=== PATIENT | male | born 1950 | race Caucasian/White ===

== ENCOUNTER 2019-10-30 12:36 | Inpatient (IN) | payer MEDICARE, OTHER, SELFPAY ==
[2019-10-30] VITALS (9 sets, daily range): BP systolic 97–191; BP diastolic 65–92; PULSE 82–108; RESP 18–26; TEMP 36.8–39.1; O2SAT 92–98
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
[2019-10-30] MEDS: Normal Saline 1,000 ML 125 ML IV ×2 (13:54→15:32)
[2019-10-30 13:55] LABS: Lactate 1.5 mmol/L (0.6-1.4)
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
[2019-10-30 13:59] LABS: Abs Immature Grans 0.06 k/cumm (0.0-0.09); Absolute Basophil Count 0.01 k/cumm (0.0-0.2); Absolute Lymphocyte Count 0.62 k/cumm (1.2-3.4); Absolute Monocyte Count 1.53 k/cumm (0.11-0.7); Absolute Neutrophil Count 12.45 k/cumm (1.2-6.7); Basophils % 0.1; HCT 39.2 % (40.0-50.0); HGB 13.8 g/dL (13.5-17.5); Immature Grans % 0.4 %; Lymphocytes % 4.2; Mean Corp. HGB Concentration 35.2 g/dL (32.0-36.0); Mean Corpuscular Volume 85.2 fL (80-95); Mean Platelet Volume 11.2 fL (8.0-11.0); Monocytes % 10.4; Neutrophils % 84.9; Platelet Count 219 x1000/uL (130-400); RBC Distribution Width 12.2 % (11.8-14.1); White Blood Cell Count 14.67 k/cumm (4.4-10.8)
[2019-10-30 14:33] LABS: BE (Venous) 2.4 mmol/L (-3-3); HCO3 (Venous) 26 mmol/L (22-28); O2 Sat (Venous) 87 % (70-80); TCO2 (Venous) 23 mmol/L (22-29); pCO2 (Venous) 34 mm/Hg (34-47); pH (Venous) 7.49 (7.35-7.45); pO2 (Venous) 47 mm/Hg (28-44)
[2019-10-30 14:34] LABS: ALT 28 U/L (16-63); AST 19 U/L (15-37); Albumin 3.5 g/dL (3.4-5.0); Alkaline Phosphatase 104 U/L (46-116); BUN 14 mg/dL (7-18); Bilirubin, Total 1.3 mg/dL (0.2-1.0); CREATININE 1.07 mg/dL (0.70-1.30); Calcium 9.3 mg/dL (8.5-10.1); Chloride 93 mmol/L (98-107); Glucose 426 mg/dL (74-106); Potassium 4.5 mmol/L (3.5-5.1); Sodium 130 mmol/L (136-145); Total Protein 7.8 g/dL (6.4-8.2)
--- NOTE | 2019-10-30 14:45 | ROE_ITS ---
DATE: OCTOBER 30, 2019 Preoperative Diagnosis: Left shoulder abscess secondary to uncontrolled diabetes Postoperative Diagnosis: Same Operation: Incision and drainage Anesthesia: General Estimated Blood Loss: 20 cc. Complications: The patient tolerated the procedure well without complications. Surgeon: Opal Mathew D.O. Indications: Mr. Carlin is a 69 year-old male who presented to the Emergency Department with 10 days of a left shoulder abscess. He is obviously septic and requires incision and drainage. Informed consent is obtained explaining the risks and benefits of the procedure including bleeding, infection, pneumonia or blood clots, it will leave a scar there and there may be loss of motor or sensory function, chronic pain and chronic numbness. He will need frequent dressing changes and it will be a prolonged, delayed healing time and other unforetold complications including anesthesia. Procedure: The patient was marked in preop. He was brought to the Operating Suite and placed in the supine position. Anesthesia was administered per the Department of Anesthesia. The patient was then positioned in a right semi- Marcial's. Using beanbags for support, all bony surfaces were padded. The area was prepped and draped in the usual sterile fashion using Betadine scrub solution. Timeout was performed. A 2 x 3 inch area of necrotic tissue was excised. A finger was swept and all pockets were broken up. Tissue was sent for culture. There was large amount of purulent drainageapprox 50cc. Curet was used to sharply debride all the necrotic tissue. The final wound ended up being 11 x 8 cm. It is down to the muscle. There may be some fascial infection but the muscle appears intact without gross infection. It was then irrigated with three liters of saline. It was packed with wet to dry gauze and pressure dressing was applied. There was no significant bleeding. The patient tolerated the procedure well without complications. He was transferred to Recovery Room in stable condition.
[2019-10-30 14:47] LABS: INR 1.2 (0.9-1.1); Prothrombin Time 11.6 sec (9.3-11.0)
[2019-10-30 14:50] LABS: Diff Comment Diff Reviewed
[2019-10-30 14:51] LABS: Anisocytosis 1+
[2019-10-30 14:59] LABS: Hemoglobin A1C 10.4 % (3.8-5.6)
[2019-10-30] MEDS: PIPERACILLIN/TAZO 4.5 GM in Normal Saline 100 ML IVPB ×2 (15:04→22:17)
[2019-10-30] MEDS: VANCOMYCIN 2,000 MG in Normal Saline 500 ML 250 MG IVPB (15:25)
--- NOTE | 2019-10-30 15:33 | W.PM.OP ---
Date of service: 10/30/19 Time of Service: 15:34 Operative Note Operative Note DATE OF PROCEDURE: 10/30/19 PRE-OP DIAGNOSIS: soft tissue abscess L shoulder POST-OP DIAGNOSIS: same (down to muscle ) PROCEDURE: incision and drainage cultures taken SURGEON: Opal Mathew ANESTHESIA: GETA ESTIMATED BLOOD LOSS: 25 PATHOLOGY: other COMPLICATIONS: None Patient was transported to: PACU Patient's condition: stable Procedure Description: 11x8cm abscess down to muscle. surrounding erythema. tissue sent for culture. irrigated and debrided w/ 3L saline packed w/ gauze
[2019-10-30 15:47] LABS: C-Reactive Protein 16.48 mg/dL (0.0-0.3); Magnesium 1.6 mg/dL (1.8-2.4)
[2019-10-30 17:26] LABS: Glucose 402 mg/dL (74-106)
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
[2019-10-30] MEDS: MAGNESIUM SULFATE 2 GM/50 ML BAG IVPB (18:49)
[2019-10-30 19:47] LABS: Bilirubin Negative (Negative); Blood Small (Negative); Clarity Clear (Clear); Glucose 500 mg/dL (Negative); Ketones 15 mg/dL (Negative); Leukocyte Esterase Negative (Negative); Nitrite Negative (Negative)
[2019-10-30 19:53] LABS: Bacteria Negative HPF (Negative); C & S Indicated? No; Casts Negative LPF (Negative); Crystals Negative HPF (Negative); Epithelial Cells Negative HPF (Negative); Mucus Negative (Negative); Other Cells Negative (Negative); RBC 20-50 HPF (0-2); WBC 0-2 HPF (0-5)
--- NOTE | 2019-10-30 20:40 | PGE_ITS ---
Date of Service Date of service: 10/30/19 Time of Service: 15:40 Assessment and Plan Assessment and plan (1) Abscess of arm, left: Status: Acute Assessment and plan: *Infection related to undiagnosed DM cont abx cultures pd packed wet to dry today re-eval wound in am and hopefully placed a NWPD in am DVT proph pain management DM- per hosp (2) Sepsis: Status: Acute (3) Hypertension: Status: Chronic (4) Bacterial skin infection of upper extremity: Status: Acute (5) New onset type 2 diabetes mellitus: Status: Acute Subjective Subjective Patient reports: no new complaints Interval history since last seen: pt awake and alert in PACU. c/o dry cough. notes his arm is feeling better. In OR had temp over 39. down to 37.7 in pacu- did receive toradol and IV ofirm. no chest pain or SOB. no drainage from incision Exam Const Other: HEENT: all negative No jaundice. No eye redness or pain. No throat pain. L: CTA b/l Abdom: + BS. no distensions. LOWER EXTREMITY: no swelling or calf pain The incision(s) is clean and dry. no bleeding through dressings. Objective Objective Clinical Data: Abnormal lab results 10/30/19 10/30/19 10/30/19 Range/Units 13:40 13:40 13:40 WBC 14.67 H (4.4-10.8) k/cumm Hct 39.2 L (40.0-50.0) % MPV 11.2 H (8.0-11.0) fL Absolute Neutrophils 12.45 H (1.2-6.7) k/cumm Absolute Lymphocytes 0.62 L (1.2-3.4) k/cumm Absolute Monocytes 1.53 H (0.11-0.7) k/cumm PT (9.3-11.0) sec INR (0.9-1.1) VBG pH (7.35-7.45) VBG pO2 (28-44) mm/Hg VBG O2 Saturation (70-80) % Sodium 130 L (136-145) mmol/L Chloride 93 L (98-107) mmol/L Glucose 426 H (74-106) mg/dL Hemoglobin A1c (3.8-5.6) % Lactate 1.5 H (0.6-1.4) mmol/L Magnesium (1.8-2.4) mg/dL Total Bilirubin 1.3 H (0.2-1.0) mg/dL C-Reactive Protein (0.0-0.3) mg/dL Urine Ketones (Negative) mg/dL Urine Blood (Negative) Urine Urobilinogen (Up TO 0.2) EU/dL Urine RBC (0-2) HPF Urine Glucose (Negative) mg/dL 10/30/19 10/30/19 10/30/19 Range/Units 13:40 14:27 14:27 WBC (4.4-10.8) k/cumm Hct (40.0-50.0) % MPV (8.0-11.0) fL Absolute Neutrophils (1.2-6.7) k/cumm Absolute Lymphocytes (1.2-3.4) k/cumm Absolute Monocytes (0.11-0.7) k/cumm PT 11.6 H (9.3-11.0) sec INR 1.2 H (0.9-1.1) VBG pH 7.49 H (7.35-7.45) VBG pO2 47 H (28-44) mm/Hg VBG O2 Saturation 87 H (70-80) % Sodium (136-145) mmol/L Chloride (98-107) mmol/L Glucose (74-106) mg/dL Hemoglobin A1c (3.8-5.6) % Lactate (0.6-1.4) mmol/L Magnesium 1.6 L (1.8-2.4) mg/dL Total Bilirubin (0.2-1.0) mg/dL C-Reactive Protein 16.48 H (0.0-0.3) mg/dL Urine Ketones (Negative) mg/dL Urine Blood (Negative) Urine Urobilinogen (Up TO 0.2) EU/dL Urine RBC (0-2) HPF Urine Glucose (Negative) mg/dL 10/30/19 10/30/19 10/30/19 Range/Units 14:27 17:10 19:04 WBC (4.4-10.8) k/cumm Hct (40.0-50.0) % MPV (8.0-11.0) fL Absolute Neutrophils (1.2-6.7) k/cumm Absolute Lymphocytes (1.2-3.4) k/cumm Absolute Monocytes (0.11-0.7) k/cumm PT (9.3-11.0) sec INR (0.9-1.1) VBG pH (7.35-7.45) VBG pO2 (28-44) mm/Hg VBG O2 Saturation (70-80) % Sodium (136-145) mmol/L Chloride (98-107) mmol/L Glucose 402 H (74-106) mg/dL Hemoglobin A1c 10.4 H (3.8-5.6) % Lactate (0.6-1.4) mmol/L Magnesium (1.8-2.4) mg/dL Total Bilirubin (0.2-1.0) mg/dL C-Reactive Protein (0.0-0.3) mg/dL Urine Ketones 15 H (Negative) mg/dL Urine Blood Small H (Negative) Urine Urobilinogen 2.0 H (Up TO 0.2) EU/dL Urine RBC 20-50 H (0-2) HPF Urine Glucose 500 H (Negative) mg/dL Vital Signs Temperature 37.2 C 10/30/19 16:17 Temperature Source Tympanic 10/30/19 16:17 Pulse 92 H 10/30/19 16:17 Pulse Rhythm Regular 10/30/19 19:19 Respiratory Rate 18 10/30/19 16:17 Respiratory Effort Non-Labored 10/30/19 19:19 Respiratory Depth Normal 10/30/19 19:19 Respiratory Pattern Normal 10/30/19 19:19 Blood Pressure 128/92 H 10/30/19 16:17 Blood Pressure Position Sitting 10/30/19 12:50 Pulse Oximetry 93 L 10/30/19 16:17 Respiratory End-tidal CO2 33 10/30/19 15:45 Oxygen Delivery Method Room Air 10/30/19 16:17 Oxygen Flow Rate 0 10/30/19 16:17 Pain Level 0 10/30/19 19:19 Intake & Output 10/29/19 10/30/19 10/30/19 23:59 11:59 23:59 Intake Total 809.083 / 809.083 Output Total 650 / 650 Balance 159.083 / 159.083 Weight 81.647 kg Intake: IV 734.083 / 734.083 Oral 75 / 75 Output: Urine 450 / 450 Post Void Residual 200 / 200 Other: Urine Color Straw Urine Appearance Clear Urine Odor Normal Comment Pt was informed about urine specimen collection. but the urine was left in the room for half an hour. So the specimen is not collected at this time. Emesis Description None Voiding Methods Toilet Laboratory Results WBC 14.67 k/cumm (4.4-10.8) H 10/30/19 13:40 RBC 4.60 m/cumm (4.50-6.00) 10/30/19 13:40 Hgb 13.8 g/dL (13.5-17.5) 10/30/19 13:40 Hct 39.2 % (40.0-50.0) L 10/30/19 13:40 MCV 85.2 fL (80-95) 10/30/19 13:40 MCH 30.0 pg (27.0-33.0) 10/30/19 13:40 MCHC 35.2 g/dL (32.0-36.0) 10/30/19 13:40 RDW 12.2 % (11.8-14.1) 10/30/19 13:40 Plt Count 219 x1000/uL (130-400) 10/30/19 13:40 MPV 11.2 fL (8.0-11.0) H 10/30/19 13:40 Immature Gran % 0.4 % 10/30/19 13:40 Neutrophils % 84.9 10/30/19 13:40 Lymphocytes % 4.2 10/30/19 13:40 Monocytes % 10.4 10/30/19 13:40 Eosinophils % 0.0 10/30/19 13:40 Basophils % 0.1 10/30/19 13:40 Absolute Neutrophils 12.45 k/cumm (1.2-6.7) H 10/30/19 13:40 Absolute Lymphocytes 0.62 k/cumm (1.2-3.4) L 10/30/19 13:40 Absolute Monocytes 1.53 k/cumm (0.11-0.7) H 10/30/19 13:40 Absolute Eosinophils 0.00 k/cumm (0.0-0.7) 10/30/19 13:40 Absolute Basophils 0.01 k/cumm (0.0-0.2) 10/30/19 13:40 Differential Comment Diff reviewed 10/30/19 13:40 Anisocytosis 1+ 10/30/19 13:40 PT 11.6 sec (9.3-11.0) H 10/30/19 14:27 INR 1.2 (0.9-1.1) H 10/30/19 14:27 VBG pH 7.49 (7.35-7.45) H 10/30/19 14:27 VBG pCO2 34 mm/Hg (34-47) 10/30/19 14:27 VBG pO2 47 mm/Hg (28-44) H 10/30/19 14:27 VBG HCO3 26 mmol/L (22-28) 10/30/19 14:27 VBG Total CO2 23 mmol/L (22-29) 10/30/19 14:27 VBG O2 Saturation 87 % (70-80) H 10/30/19 14:27 VBG Base Excess 2.4 mmol/L (-3-3) 10/30/19 14:27 Sodium 130 mmol/L (136-145) L 10/30/19 13:40 Potassium 4.5 mmol/L (3.5-5.1) 10/30/19 13:40 Chloride 93 mmol/L (98-107) L 10/30/19 13:40 Carbon Dioxide 27.0 mmol/L (21.0-32.0) 10/30/19 13:40 Anion Gap 10.0 mmol/L (3-11) 10/30/19 13:40 BUN 14 mg/dL (7-18) 10/30/19 13:40 Creatinine 1.07 mg/dL (0.70-1.30) 10/30/19 13:40 Estimated GFR/1.73 m2 >= 60.00 (mL/min/1.73m2) 10/30/19 13:40 Glucose 402 mg/dL (74-106) H 10/30/19 17:10 Hemoglobin A1c 10.4 % (3.8-5.6) H 10/30/19 14:27 Lactate Cancelled 10/30/19 13:51 Calcium 9.3 mg/dL (8.5-10.1) 10/30/19 13:40 Magnesium 1.6 mg/dL (1.8-2.4) L 10/30/19 13:40 Total Bilirubin 1.3 mg/dL (0.2-1.0) H 10/30/19 13:40 AST 19 U/L (15-37) 10/30/19 13:40 ALT 28 U/L (16-63) 10/30/19 13:40 Alkaline Phosphatase 104 U/L (46-116) 10/30/19 13:40 C-Reactive Protein 16.48 mg/dL (0.0-0.3) H 10/30/19 13:40 Total Protein 7.8 g/dL (6.4-8.2) 10/30/19 13:40 Albumin 3.5 g/dL (3.4-5.0) 10/30/19 13:40 Urine Color Yellow (Yellow) 10/30/19 19:04 Urine Clarity Clear (Clear) 10/30/19 19:04 Urine pH 6.0 (5-8) 10/30/19 19:04 Ur Specific [place] 1.010 (1.005-1.025) 10/30/19 19:04 Urine Protein Negative mg/dL (Negative) 10/30/19 19:04 Urine Ketones 15 mg/dL (Negative) H 10/30/19 19:04 Urine Blood Small (Negative) H 10/30/19 19:04 Urine Nitrite Negative (Negative) 10/30/19 19:04 Urine Bilirubin Negative (Negative) 10/30/19 19:04 Urine Urobilinogen 2.0 EU/dL (Up TO 0.2) H 10/30/19 19:04 Ur Leukocyte Esterase Negative (Negative) 10/30/19 19:04 Urine RBC 20-50 HPF (0-2) H 10/30/19 19:04 Urine WBC 0-2 HPF (0-5) 10/30/19 19:04 Ur Epithelial Cells Negative HPF (Negative) 10/30/19 19:04 Urine Crystals Negative HPF (Negative) 10/30/19 19:04 Urine Bacteria Negative HPF (Negative) 10/30/19 19:04 Urine Casts Negative LPF (Negative) 10/30/19 19:04 Urine Mucus Negative (Negative) 10/30/19 19:04 Urine Other Negative (Negative) 10/30/19 19:04 Ur Culture Indicated? No 10/30/19 19:04 Urine Glucose 500 mg/dL (Negative) H 10/30/19 19:04 Gram Stain Cancelled 10/30/19 14:51 Anaerobic Culture Cancelled 10/30/19 14:51 Anaerob Organism Srce Cancelled 10/30/19 14:51 Anaer Org ID Rpt Status Cancelled 10/30/19 14:51
[2019-10-30] MEDS: ACETAMINOPHEN 1,000 MG/100 ML BTL 400 MG IVPB (22:16)
[2019-10-30] MEDS: Ketorolac 15 MG/ML VIAL IVP (22:17)
[2019-10-30] MEDS: Normal Saline Flush 10 ML SYR IVP (22:18)
[2019-10-30] MEDS: Insulin Glargine 300 UNITS/3 ML PEN 10 UNITS SC (22:52)
[2019-10-30] MEDS: Insulin Aspart 300 UNITS/3 ML PEN SC (22:53)
[2019-10-31] MEDS: Normal Saline 1,000 ML 125 ML IV ×2 (02:50→12:47)
[2019-10-31 04:30] VITALS: BP 143/80; PULSE 85; RESP 18; TEMP 37.1; O2SAT 95
[2019-10-31] MEDS: VANCOMYCIN 1,000 MG in Normal Saline 250 ML 166.667 MG IV (04:30)
[2019-10-31] MEDS: Normal Saline Flush 10 ML SYR IVP ×3 (06:57→20:10)
[2019-10-31] MEDS: ACETAMINOPHEN 1,000 MG/100 ML BTL 400 MG IVPB ×3 (06:57→22:17)
[2019-10-31] MEDS: Ketorolac 15 MG/ML VIAL IVP ×3 (06:58→22:19)
[2019-10-31] MEDS: PIPERACILLIN/TAZO 4.5 GM in Normal Saline 100 ML IVPB ×3 (06:59→22:21)
[2019-10-31 07:28] LABS: Absolute Lymphocyte Count 1.18 k/cumm (1.2-3.4); Absolute Monocyte Count 1.59 k/cumm (0.11-0.7); Absolute Neutrophil Count 12.99 k/cumm (1.2-6.7); Basophils % 0.1; Eosinophils % 0.1; HCT 35.1 % (40.0-50.0); HGB 12.1 g/dL (13.5-17.5); Immature Grans % 0.6 %; Lymphocytes % 7.4; Mean Corp. HGB Concentration 34.5 g/dL (32.0-36.0); Mean Corpuscular Hemoglobin 30.1 pg (27.0-33.0); Mean Corpuscular Volume 87.3 fL (80-95); Mean Platelet Volume 11.2 fL (8.0-11.0); Neutrophils % 81.8; Platelet Count 204 x1000/uL (130-400); RBC 4.02 m/cumm (4.50-6.00); RBC Distribution Width 12.2 % (11.8-14.1); White Blood Cell Count 15.88 k/cumm (4.4-10.8)
[2019-10-31 07:35] VITALS: BP 124/76; PULSE 81; RESP 22; TEMP 37; O2SAT 92
[2019-10-31 07:47] LABS: Absolute Basophil Count 0.02 k/cumm (0.0-0.2); Absolute Eosinophil Count 0.02 k/cumm (0.0-0.7)
[2019-10-31 08:04] LABS: Anion Gap 8.3 mmol/L (3-11); BUN 15 mg/dL (7-18); C-Reactive Protein 20.81 mg/dL (0.0-0.3); CO2 25.7 mmol/L (21.0-32.0); CREATININE 0.88 mg/dL (0.70-1.30); Calcium 8.2 mg/dL (8.5-10.1); Chloride 101 mmol/L (98-107); Glucose 275 mg/dL (74-106); Potassium 4.8 mmol/L (3.5-5.1); Sodium 135 mmol/L (136-145); TSH (W/Ref FT4) 0.63 uIU/mL (0.36-3.74)
[2019-10-31 08:16] LABS: Procalcitonin 0.5 ng/mL
[2019-10-31 08:17] LABS: Diff Comment Diff Reviewed
[2019-10-31 08:18] LABS: Anisocytosis 1+; Polychromasia Present
[2019-10-31] MEDS: Ketoconazole 2% CREAM 15 GM TUBE TP (09:35)
[2019-10-31] MEDS: Insulin Aspart 300 UNITS/3 ML PEN SC ×6 (09:36→22:20)
[2019-10-31] MEDS: Enoxaparin 40 MG/0.4 ML SYR SC (09:36)
[2019-10-31 11:45] VITALS: BP 130/79; PULSE 78; RESP 22; TEMP 35.9; O2SAT 92
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
[2019-10-31] MEDS: Milk of Magnesia 30 ML CUP PO (12:10)
--- NOTE | 2019-10-31 14:08 | W.PM.PROGNOT ---
Date of Service Date of service: 10/31/19 Time of Service: 14:08 Assessment and Plan Assessment and plan (1) Sepsis: Status: Acute Assessment and plan: Due to abscess of LUE, present on admission. Surgical Cultures with MRSA, GNR. Blood cultures pending. CRP went up - to be expected post-surgically. Continue vanco/zosyn for now. Would not d/c zosyn until speciation on GNR available. Continue to trend CRP/procalcitonin. (2) Abscess of left shoulder: Status: Acute Assessment and plan: As above (3) New onset type 2 diabetes mellitus: Status: Acute Assessment and plan: With hyperglycemia. A1C of 10.4. Hyperglycemia partially due to acute infection. Increase basal insulin; schedule prandial insulin. Await diabetes education consult. (4) Hypertension: Status: Chronic Assessment and plan: New diagnosis. BP's have been quite good today. Will start lisinopril 2.5 mg PO daily. (5) Tinea pedis: Status: Acute Assessment and plan: Continue ketaconazole (6) DVT prophylaxis: Status: Acute Assessment and plan: Defer to primary team (7) Discharge planning issues: Status: Acute Assessment and plan: Full code Subjective Subjective Interval history since last seen: Mr Carlin states he did not have nausea, dizziness, chest pain, or shortness of breath today. His pain is controlled. He is growing MRSA in his operative culture, but there is also evidence of GNR on gram stain - this has not yet speciated. The nursing notes an extra beat on auscultation. Patient endorses having occasional palpitations. He has never had an EKG. Exam Narrative Exam Narrative: General: Very pleasant middle-aged male, laying comfortably in bed, A&Ox3 HEENT: EOMI, MMM Cardiovascular: RRR, occasional extra beat Lungs: crackles at B bases Gastrointestinal: soft, nontender, nondistended Extremities: no e/c/c BLE's, preserved sensation, 2+ pedal pulses B, LUE with a dressed abscess - c/d/i Objective Objective Clinical Data: Abnormal lab results 10/30/19 10/30/19 10/30/19 Range/Units 13:40 13:40 13:40 WBC 14.67 H (4.4-10.8) k/cumm RBC (4.50-6.00) m/cumm Hgb (13.5-17.5) g/dL Hct 39.2 L (40.0-50.0) % MPV 11.2 H (8.0-11.0) fL Absolute Neutrophils 12.45 H (1.2-6.7) k/cumm Absolute Lymphocytes 0.62 L (1.2-3.4) k/cumm Absolute Monocytes 1.53 H (0.11-0.7) k/cumm PT (9.3-11.0) sec INR (0.9-1.1) VBG pH (7.35-7.45) VBG pO2 (28-44) mm/Hg VBG O2 Saturation (70-80) % Sodium 130 L (136-145) mmol/L Chloride 93 L (98-107) mmol/L Glucose 426 H (74-106) mg/dL Hemoglobin A1c (3.8-5.6) % Calcium (8.5-10.1) mg/dL Magnesium 1.6 L (1.8-2.4) mg/dL Total Bilirubin 1.3 H (0.2-1.0) mg/dL C-Reactive Protein 16.48 H (0.0-0.3) mg/dL Urine Ketones (Negative) mg/dL Urine Blood (Negative) Urine Urobilinogen (Up TO 0.2) EU/dL Urine RBC (0-2) HPF Urine Glucose (Negative) mg/dL 10/30/19 10/30/19 10/30/19 Range/Units 14:27 14:27 14:27 WBC (4.4-10.8) k/cumm RBC (4.50-6.00) m/cumm Hgb (13.5-17.5) g/dL Hct (40.0-50.0) % MPV (8.0-11.0) fL Absolute Neutrophils (1.2-6.7) k/cumm Absolute Lymphocytes (1.2-3.4) k/cumm Absolute Monocytes (0.11-0.7) k/cumm PT 11.6 H (9.3-11.0) sec INR 1.2 H (0.9-1.1) VBG pH 7.49 H (7.35-7.45) VBG pO2 47 H (28-44) mm/Hg VBG O2 Saturation 87 H (70-80) % Sodium (136-145) mmol/L Chloride (98-107) mmol/L Glucose (74-106) mg/dL Hemoglobin A1c 10.4 H (3.8-5.6) % Calcium (8.5-10.1) mg/dL Magnesium (1.8-2.4) mg/dL Total Bilirubin (0.2-1.0) mg/dL C-Reactive Protein (0.0-0.3) mg/dL Urine Ketones (Negative) mg/dL Urine Blood (Negative) Urine Urobilinogen (Up TO 0.2) EU/dL Urine RBC (0-2) HPF Urine Glucose (Negative) mg/dL 10/30/19 10/30/19 10/31/19 Range/Units 17:10 19:04 06:52 WBC (4.4-10.8) k/cumm RBC (4.50-6.00) m/cumm Hgb (13.5-17.5) g/dL Hct (40.0-50.0) % MPV (8.0-11.0) fL Absolute Neutrophils (1.2-6.7) k/cumm Absolute Lymphocytes (1.2-3.4) k/cumm Absolute Monocytes (0.11-0.7) k/cumm PT (9.3-11.0) sec INR (0.9-1.1) VBG pH (7.35-7.45) VBG pO2 (28-44) mm/Hg VBG O2 Saturation (70-80) % Sodium 135 L (136-145) mmol/L Chloride (98-107) mmol/L Glucose 402 H 275 H D (74-106) mg/dL Hemoglobin A1c (3.8-5.6) % Calcium 8.2 L (8.5-10.1) mg/dL Magnesium (1.8-2.4) mg/dL Total Bilirubin (0.2-1.0) mg/dL C-Reactive Protein 20.81 H (0.0-0.3) mg/dL Urine Ketones 15 H (Negative) mg/dL Urine Blood Small H (Negative) Urine Urobilinogen 2.0 H (Up TO 0.2) EU/dL Urine RBC 20-50 H (0-2) HPF Urine Glucose 500 H (Negative) mg/dL 10/31/19 Range/Units 06:52 WBC 15.88 H (4.4-10.8) k/cumm RBC 4.02 L (4.50-6.00) m/cumm Hgb 12.1 L (13.5-17.5) g/dL Hct 35.1 L (40.0-50.0) % MPV 11.2 H (8.0-11.0) fL Absolute Neutrophils 12.99 H (1.2-6.7) k/cumm Absolute Lymphocytes 1.18 L (1.2-3.4) k/cumm Absolute Monocytes 1.59 H (0.11-0.7) k/cumm PT (9.3-11.0) sec INR (0.9-1.1) VBG pH (7.35-7.45) VBG pO2 (28-44) mm/Hg VBG O2 Saturation (70-80) % Sodium (136-145) mmol/L Chloride (98-107) mmol/L Glucose (74-106) mg/dL Hemoglobin A1c (3.8-5.6) % Calcium (8.5-10.1) mg/dL Magnesium (1.8-2.4) mg/dL Total Bilirubin (0.2-1.0) mg/dL C-Reactive Protein (0.0-0.3) mg/dL Urine Ketones (Negative) mg/dL Urine Blood (Negative) Urine Urobilinogen (Up TO 0.2) EU/dL Urine RBC (0-2) HPF Urine Glucose (Negative) mg/dL Vital Signs Temperature 35.9 C L 10/31/19 11:45 Temperature Source Temporal Artery Scan 10/31/19 11:45 Pulse 78 10/31/19 11:45 Pulse Rhythm Regular 10/31/19 11:21 Respiratory Rate 22 10/31/19 11:45 Respiratory Effort Non-Labored 10/31/19 11:21 Respiratory Depth Normal 10/31/19 11:21 Respiratory Pattern Normal 10/31/19 11:21 Blood Pressure 130/79 10/31/19 11:45 Blood Pressure Position Sitting 10/30/19 12:50 Pulse Oximetry 92 L 10/31/19 11:45 Respiratory End-tidal CO2 33 10/30/19 15:45 Oxygen Delivery Method Room Air 10/31/19 11:45 Oxygen Flow Rate 0 10/31/19 11:45 Pain Level 0 10/31/19 11:45 Intake & Output 10/30/19 10/31/19 10/31/19 23:59 11:59 23:59 Intake Total 2811.083 / 2811.083 1907.083 / 3185.000 1277.917 / 3185.000 Output Total 1150 / 1150 950 / 950 Balance 1661.083 / 1661.083 957.083 / 2235.000 1277.917 / 2235.000 Weight 81.647 kg Intake: IV 1956.083 / 1956.083 777.083 / 1450.000 672.917 / 1450.000 Oral 855 / 855 1130 / 1735 605 / 1735 Output: Urine 950 / 950 950 / 950 Post Void Residual 200 / 200 Other: Urine Color Straw Dark Melita Urine Appearance Clear Clear Urine Odor Normal Comment Pt was informed about urine specimen collection. but the urine was left in the room for half an hour. So the specimen is not collected at this time. Emesis Description None Voiding Methods Toilet Urinal Laboratory Results WBC 15.88 k/cumm (4.4-10.8) H 10/31/19 06:52 RBC 4.02 m/cumm (4.50-6.00) L 10/31/19 06:52 Hgb 12.1 g/dL (13.5-17.5) L 10/31/19 06:52 Hct 35.1 % (40.0-50.0) L 10/31/19 06:52 MCV 87.3 fL (80-95) 10/31/19 06:52 MCH 30.1 pg (27.0-33.0) 10/31/19 06:52 MCHC 34.5 g/dL (32.0-36.0) 10/31/19 06:52 RDW 12.2 % (11.8-14.1) 10/31/19 06:52 Plt Count 204 x1000/uL (130-400) 10/31/19 06:52 MPV 11.2 fL (8.0-11.0) H 10/31/19 06:52 Immature Gran % 0.6 % 10/31/19 06:52 Neutrophils % 81.8 10/31/19 06:52 Lymphocytes % 7.4 10/31/19 06:52 Monocytes % 10.0 10/31/19 06:52 Eosinophils % 0.1 10/31/19 06:52 Basophils % 0.1 10/31/19 06:52 Absolute Neutrophils 12.99 k/cumm (1.2-6.7) H 10/31/19 06:52 Absolute Lymphocytes 1.18 k/cumm (1.2-3.4) L 10/31/19 06:52 Absolute Monocytes 1.59 k/cumm (0.11-0.7) H 10/31/19 06:52 Absolute Eosinophils 0.02 k/cumm (0.0-0.7) 10/31/19 06:52 Absolute Basophils 0.02 k/cumm (0.0-0.2) 10/31/19 06:52 Differential Comment Diff reviewed 10/31/19 06:52 RBC Morphology See below 10/31/19 06:52 Polychromasia Present 10/31/19 06:52 Anisocytosis 1+ 10/31/19 06:52 PT 11.6 sec (9.3-11.0) H 10/30/19 14:27 INR 1.2 (0.9-1.1) H 10/30/19 14:27 VBG pH 7.49 (7.35-7.45) H 10/30/19 14:27 VBG pCO2 34 mm/Hg (34-47) 10/30/19 14:27 VBG pO2 47 mm/Hg (28-44) H 10/30/19 14:27 VBG HCO3 26 mmol/L (22-28) 10/30/19 14:27 VBG Total CO2 23 mmol/L (22-29) 10/30/19 14:27 VBG O2 Saturation 87 % (70-80) H 10/30/19 14:27 VBG Base Excess 2.4 mmol/L (-3-3) 10/30/19 14:27 Sodium 135 mmol/L (136-145) L 10/31/19 06:52 Potassium 4.8 mmol/L (3.5-5.1) 10/31/19 06:52 Chloride 101 mmol/L (98-107) 10/31/19 06:52 Carbon Dioxide 25.7 mmol/L (21.0-32.0) 10/31/19 06:52 Anion Gap 8.3 mmol/L (3-11) 10/31/19 06:52 BUN 15 mg/dL (7-18) 10/31/19 06:52 Creatinine 0.88 mg/dL (0.70-1.30) 10/31/19 06:52 Estimated GFR/1.73 m2 >= 60.00 (mL/min/1.73m2) 10/31/19 06:52 Glucose 275 mg/dL (74-106) H D 10/31/19 06:52 Hemoglobin A1c 10.4 % (3.8-5.6) H 10/30/19 14:27 Lactate Cancelled 10/30/19 13:51 Calcium 8.2 mg/dL (8.5-10.1) L 10/31/19 06:52 Magnesium 2.0 mg/dL (1.8-2.4) 10/31/19 06:52 Total Bilirubin 1.3 mg/dL (0.2-1.0) H 10/30/19 13:40 AST 19 U/L (15-37) 10/30/19 13:40 ALT 28 U/L (16-63) 10/30/19 13:40 Alkaline Phosphatase 104 U/L (46-116) 10/30/19 13:40 C-Reactive Protein 20.81 mg/dL (0.0-0.3) H 10/31/19 06:52 Total Protein 7.8 g/dL (6.4-8.2) 10/30/19 13:40 Albumin 3.5 g/dL (3.4-5.0) 10/30/19 13:40 Procalcitonin 0.5 ng/mL 10/31/19 06:52 TSH 0.63 uIU/mL (0.36-3.74) 10/31/19 06:52 Urine Color Yellow (Yellow) 10/30/19 19:04 Urine Clarity Clear (Clear) 10/30/19 19:04 Urine pH 6.0 (5-8) 10/30/19 19:04 Ur Specific [place] 1.010 (1.005-1.025) 10/30/19 19:04 Urine Protein Negative mg/dL (Negative) 10/30/19 19:04 Urine Ketones 15 mg/dL (Negative) H 10/30/19 19:04 Urine Blood Small (Negative) H 10/30/19 19:04 Urine Nitrite Negative (Negative) 10/30/19 19:04 Urine Bilirubin Negative (Negative) 10/30/19 19:04 Urine Urobilinogen 2.0 EU/dL (Up TO 0.2) H 10/30/19 19:04 Ur Leukocyte Esterase Negative (Negative) 10/30/19 19:04 Urine RBC 20-50 HPF (0-2) H 10/30/19 19:04 Urine WBC 0-2 HPF (0-5) 10/30/19 19:04 Ur Epithelial Cells Negative HPF (Negative) 10/30/19 19:04 Urine Crystals Negative HPF (Negative) 10/30/19 19:04 Urine Bacteria Negative HPF (Negative) 10/30/19 19:04 Urine Casts Negative LPF (Negative) 10/30/19 19:04 Urine Mucus Negative (Negative) 10/30/19 19:04 Urine Other Negative (Negative) 10/30/19 19:04 Ur Culture Indicated? No 10/30/19 19:04 Urine Glucose 500 mg/dL (Negative) H 10/30/19 19:04 Gram Stain Cancelled 10/30/19 14:51 Anaerobic Culture Cancelled 10/30/19 14:51 Anaerob Organism Srce Cancelled 10/30/19 14:51 Anaer Org ID Rpt Status Cancelled 10/30/19 14:51 EKG pending
--- NOTE | 2019-10-31 15:00 | W.NUTCONSULT ---
Date of service: 10/31/19 Time of Service: 15:00 Nutritional Consult ASSESSMENT: 69 year old male admitted for sepsis, left arm abscess, s/p debridement, newly diagnosed NIDDM (ER BS: 500 mg/dl). PMH: HTN. A1C = 10.4% indicating high blood sugars in last 90 days. Following Clear Liquid diet with out issues, expect diet advancement TA. BMI indicates overweight status. DM consult pending, will need extensive diabetes teaching, blood sugar monitor and be trained in how to check blood sugars. MD reports he will be discharged on metformin. Not considered at nutritional risk at this time. Will follow prn. MONITORING AND EVALUATION: blood sugars, po intake, labs monitored daily Time Spent in Nutritional Counseling and Treatment: 0 time spent face to face
--- NOTE | 2019-10-31 16:15 | PHA.ADMREV ---
Pharmacy Clinical Review - Admission Clinical Review (Last Updated 10/30/19 @ 18:06 by Claire Castrejon MD) Abscess of arm, left (Acute) Discharge planning issues (Acute) DVT prophylaxis (Acute) Sepsis (Acute) Tinea pedis (Acute) New onset type 2 diabetes mellitus (Acute) Bacterial skin infection of upper extremity (Acute) Abscess of left shoulder (Acute) History of surgery on arm (Acute) History of dental surgery (Acute) No Known Allergies Allergy (Unverified 10/30/19 12:53) Height 5 ft 6 in Weight 81.647 kg - Renal Dosing Renal Dosing: BUN 15 mg/dL (7-18) 10/31/19 06:52 Creatinine 0.88 mg/dL (0.70-1.30) 10/31/19 06:52 Medications needing adjustments: Reviewed (Crcl ~70 mL/min current meds okay) - Anticoagulation Anticoagulation: Hgb 12.1 g/dL (13.5-17.5) L 10/31/19 06:52 Hct 35.1 % (40.0-50.0) L 10/31/19 06:52 Plt Count 204 x1000/uL (130-400) 10/31/19 06:52 INR 1.2 (0.9-1.1) H 10/30/19 14:27 Creatinine 0.88 mg/dL (0.70-1.30) 10/31/19 06:52 DVT Prohphylaxis: Reviewed Medications: Enoxaparin Therapeutic Anticoagulation: N/A - Opiate Usage Evaluate Pain Scale/Pains Meds: Reviewed Scheduled Bowel Reg ordered if on Opiates?: No - Relevant Labs Sodium 135 mmol/L (136-145) L 10/31/19 06:52 Potassium 4.8 mmol/L (3.5-5.1) 10/31/19 06:52 Chloride 101 mmol/L (98-107) 10/31/19 06:52 Magnesium 2.0 mg/dL (1.8-2.4) 10/31/19 06:52 C-Reactive Protein 20.81 mg/dL (0.0-0.3) H 10/31/19 06:52 Electrolytes, C-Reactive P, ESR: Reviewed - Antimicrobial Stewardship Antibiotic appropriateness: Reviewed (procalcitonin 0.5 ng/mL) Surgical Abx d/c within 24 hr: N/A Culture review/Resistance: Reviewed (blood cultures negative @24 hours, wound and surgical cultures growing MRSA. waiting for speciation of GNR before discontinuing zosyn (surgical culture gram stain showed few GNR)) - DM Control DM Control: Glucose 275 mg/dL (74-106) H D 10/31/19 06:52 Hemoglobin A1c 10.4 % (3.8-5.6) H 10/30/19 14:27 Finger Stick Blood Glucose 391 Finger Stick Blood Glucose 391 Finger Stick Blood Glucose 276 Insulin Dosing: Reviewed (scheduled glargine and aspart as well as sliding scale aspart) - Heart Failure/OK EF%, PAKO's, B-Blockers, Diuretics: N/A - BP Control BP Control: Blood Pressure 130/79 Blood Pressure 124/76 Blood Pressure 143/80 If elevated: N/A - QTc Review If Elevated: Reviewed (QTc 422) - IV to PO Switch IV Medications: Reviewed - Home Meds Home Med List reviewed: Reviewed - Current meds Current Medication Order Review: Reviewed - Comments Comments/Follow Ups: watch for BM/the addition of BM meds. watch for speciation of GNR/possible discontinuation of zosyn, follow CRP/procalcitonin
[2019-10-31 16:25] VITALS: BP 124/73; PULSE 83; RESP 18; TEMP 36.7; O2SAT 90
[2019-10-31] MEDS: VANCOMYCIN 1,000 MG in Normal Saline 250 ML 166.67 MG IV (16:53)
--- NOTE | 2019-10-31 18:19 | PGE_ITS ---
Date of Service Date of service: 10/31/19 Time of Service: 18:19 Assessment and Plan Assessment and plan (1) Abscess of arm, left: Status: Acute (2) Sepsis: Status: Acute Assessment and plan: resolved (3) Hypertension: Status: Chronic (4) New onset type 2 diabetes mellitus: Status: Acute (5) Bacterial skin infection of upper extremity: Status: Acute (6) Abscess of left shoulder: Status: Acute Assessment and plan: wound vac applied home vac ordered from [facility] today consulted PT for ROM cont zosyn and vanco until we have final cult results. there were gram negs on the orig gram stain from ED. I dont' think there is any extensive muscle involvement or concern for osteo. I dont' think it has traveled along fascial planes. I think this is localized only. The arm is swollen- but no signs of compartment syndrome. supportive care DM management per hosp. d/c prob mon or tues (7) MRSA cellulitis: Status: Acute Assessment and plan: cont Vanco supportive care probiotcs Subjective Subjective Interval history since last seen: Pt is doing better. no headaches. No CP or S OB. no productive cough. no dysuria. no leg pain or swelling. he has been urinating. no N/V. L arm is very swollen. He notes pain in shoulder and w/ ROM. He has not been up walking. Moderate White Blood Cells Moderate Gram Positive Cocci Few Gram Negative Ludwin on swabs did grow out MRSA- vanco and zosyn. will cont on double coverage until we get finals back on culture. Exam Const General: cooperative, healthy appearing, comfortable, no acute distress, well developed and well groomed Nutritional Appearance: average body habitus and well nourished Orientation: alert, awake and oriented x3 [facility] Head: normal to inspection, normocephalic and atraumatic Ears: hearing grossly normal bilaterally and external ears normal General nose exam: external nose normal Face and sinus: normal facial exam and sinuses nontender Mouth: oral mucosae normal, lip normal, tongue normal and moist mucous membranes Teeth and gingiva: dentition normal Eyes General: appearance normal, both eyes and all related structures Conjunctivae: conjunctivae normal Sclera: sclerae normal Pupils: PERRL Neck Neck: normal visual inspection and full ROM Chest Chest: normal inspection of the chest Resp Effort & Inspection: normal respiratory effort, able to speak in complete sentences, no cough, no nasal flaring, not tachypneic and no use of accessory muscles Auscultation: clear to auscultation bilaterally, no rales, no rhonchi and no wheezes Cardio Jugular venous pressure: no JVD Rate: regular rate Rhythm: regular rhythm GI Inspection: normal to inspection, no edema and non-distended Palpation: soft, no masses, nontender and No ascites Auscultation: normal bowel sounds Skin Other: no rashes from Vanco wound [id number]. much less redness today. still signif swelling in upper arm and forearm. edges/flaps are healthy extends down to fascia/muscle. however, i think the muscle is healthy and only midly involved. doubt osteo. 90% clean. some slough. no necrotic tissue. no granulation. I beilve this is confined to soft tissue of post upper arm. I don't think this extends into the actual shoulder joint itself. I dont' think there is any extensive myositis or concern for osteo He has good ulnar and radial pulses in the left hand/wrist. He has good range of motion in hand and fingers. There is significant swelling in the upper arm and forearm, but there is no signs of any compartment syndrome. Neuro General: alert, oriented x3, oriented, gait normal, moves all extremities, no focal motor deficits and CN's II-XI intact bilaterally Cognition: normal cognition Speech: speech normal Gait: normal gait Motor: muscle tone normal throughout Extrem General: normal to inspection, full ROM, no clubbing, cyanosis or edema and other (excluding left ext. see 'skin) Psych Appearance: grossly normal and well kempt Mental Status: mental status grossly normal Speech and Movement: speech and movement normal Affect: normal affect Objective Objective Clinical Data: Abnormal lab results 10/30/19 10/31/19 10/31/19 Range/Units 19:04 06:52 06:52 WBC 15.88 H (4.4-10.8) k/cumm RBC 4.02 L (4.50-6.00) m/cumm Hgb 12.1 L (13.5-17.5) g/dL Hct 35.1 L (40.0-50.0) % MPV 11.2 H (8.0-11.0) fL Absolute Neutrophils 12.99 H (1.2-6.7) k/cumm Absolute Lymphocytes 1.18 L (1.2-3.4) k/cumm Absolute Monocytes 1.59 H (0.11-0.7) k/cumm Sodium 135 L (136-145) mmol/L Glucose 275 H D (74-106) mg/dL Calcium 8.2 L (8.5-10.1) mg/dL C-Reactive Protein 20.81 H (0.0-0.3) mg/dL Urine Ketones 15 H (Negative) mg/dL Urine Blood Small H (Negative) Urine Urobilinogen 2.0 H (Up TO 0.2) EU/dL Urine RBC 20-50 H (0-2) HPF Urine Glucose 500 H (Negative) mg/dL Vital Signs Temperature 36.7 C 10/31/19 16:25 Temperature Source Temporal Artery Scan 10/31/19 16:25 Pulse 83 10/31/19 16:25 Pulse Rhythm Regular 10/31/19 18:09 Respiratory Rate 18 10/31/19 16:25 Respiratory Effort Non-Labored 10/31/19 18:09 Respiratory Depth Normal 10/31/19 18:09 Respiratory Pattern Normal 10/31/19 18:09 Blood Pressure 124/73 10/31/19 16:25 Blood Pressure Position Sitting 10/30/19 12:50 Pulse Oximetry 90 L 10/31/19 16:25 Respiratory End-tidal CO2 33 10/30/19 15:45 Oxygen Delivery Method Room Air 10/31/19 16:25 Oxygen Flow Rate 0 10/31/19 16:25 Pain Level 3 10/31/19 16:25 Intake & Output 10/30/19 10/31/19 10/31/19 23:59 11:59 23:59 Intake Total 2811.083 / 2811.083 2007.083 / 3635.000 1627.917 / 3635.000 Output Total 1150 / 1150 950 / 1513 563 / 1513 Balance 1661.083 / 6498.014 2281.083 / 2122.000 1064.917 / 2122.000 Weight 81.647 kg Intake: IV 1956.083 / 6.083 877.083 / 1550.000 672.917 / 1550.000 Oral 855 / 855 1130 / 2085 955 / 2085 Output: Urine 950 / 950 950 / 1480 530 / 1480 Post Void Residual 200 / 200 33 / 33 Other: Urine Color Straw Dark Melita Light Melita Urine Appearance Clear Clear Clear Urine Odor Normal None Comment Pt was informed about urine specimen collection. but the urine was left in the room for half an hour. So the specimen is not collected at this time. Emesis Description None Voiding Methods Toilet Urinal Urinal Laboratory Results WBC 15.88 k/cumm (4.4-10.8) H 10/31/19 06:52 RBC 4.02 m/cumm (4.50-6.00) L 10/31/19 06:52 Hgb 12.1 g/dL (13.5-17.5) L 10/31/19 06:52 Hct 35.1 % (40.0-50.0) L 10/31/19 06:52 MCV 87.3 fL (80-95) 10/31/19 06:52 MCH 30.1 pg (27.0-33.0) 10/31/19 06:52 MCHC 34.5 g/dL (32.0-36.0) 10/31/19 06:52 RDW 12.2 % (11.8-14.1) 10/31/19 06:52 Plt Count 204 x1000/uL (130-400) 10/31/19 06:52 MPV 11.2 fL (8.0-11.0) H 10/31/19 06:52 Immature Gran % 0.6 % 10/31/19 06:52 Neutrophils % 81.8 10/31/19 06:52 Lymphocytes % 7.4 10/31/19 06:52 Monocytes % 10.0 10/31/19 06:52 Eosinophils % 0.1 10/31/19 06:52 Basophils % 0.1 10/31/19 06:52 Absolute Neutrophils 12.99 k/cumm (1.2-6.7) H 10/31/19 06:52 Absolute Lymphocytes 1.18 k/cumm (1.2-3.4) L 10/31/19 06:52 Absolute Monocytes 1.59 k/cumm (0.11-0.7) H 10/31/19 06:52 Absolute Eosinophils 0.02 k/cumm (0.0-0.7) 10/31/19 06:52 Absolute Basophils 0.02 k/cumm (0.0-0.2) 10/31/19 06:52 Differential Comment Diff reviewed 10/31/19 06:52 RBC Morphology See below 10/31/19 06:52 Polychromasia Present 10/31/19 06:52 Anisocytosis 1+ 10/31/19 06:52 PT 11.6 sec (9.3-11.0) H 10/30/19 14:27 INR 1.2 (0.9-1.1) H 10/30/19 14:27 VBG pH 7.49 (7.35-7.45) H 10/30/19 14:27 VBG pCO2 34 mm/Hg (34-47) 10/30/19 14:27 VBG pO2 47 mm/Hg (28-44) H 10/30/19 14:27 VBG HCO3 26 mmol/L (22-28) 10/30/19 14:27 VBG Total CO2 23 mmol/L (22-29) 10/30/19 14:27 VBG O2 Saturation 87 % (70-80) H 10/30/19 14:27 VBG Base Excess 2.4 mmol/L (-3-3) 10/30/19 14:27 Sodium 135 mmol/L (136-145) L 10/31/19 06:52 Potassium 4.8 mmol/L (3.5-5.1) 10/31/19 06:52 Chloride 101 mmol/L (98-107) 10/31/19 06:52 Carbon Dioxide 25.7 mmol/L (21.0-32.0) 10/31/19 06:52 Anion Gap 8.3 mmol/L (3-11) 10/31/19 06:52 BUN 15 mg/dL (7-18) 10/31/19 06:52 Creatinine 0.88 mg/dL (0.70-1.30) 10/31/19 06:52 Estimated GFR/1.73 m2 >= 60.00 (mL/min/1.73m2) 10/31/19 06:52 Glucose 275 mg/dL (74-106) H D 10/31/19 06:52 Hemoglobin A1c 10.4 % (3.8-5.6) H 10/30/19 14:27 Lactate Cancelled 10/30/19 13:51 Calcium 8.2 mg/dL (8.5-10.1) L 10/31/19 06:52 Magnesium 2.0 mg/dL (1.8-2.4) 10/31/19 06:52 Total Bilirubin 1.3 mg/dL (0.2-1.0) H 10/30/19 13:40 AST 19 U/L (15-37) 10/30/19 13:40 ALT 28 U/L (16-63) 10/30/19 13:40 Alkaline Phosphatase 104 U/L (46-116) 10/30/19 13:40 C-Reactive Protein 20.81 mg/dL (0.0-0.3) H 10/31/19 06:52 Total Protein 7.8 g/dL (6.4-8.2) 10/30/19 13:40 Albumin 3.5 g/dL (3.4-5.0) 10/30/19 13:40 Procalcitonin 0.5 ng/mL 10/31/19 06:52 TSH 0.63 uIU/mL (0.36-3.74) 10/31/19 06:52 Urine Color Yellow (Yellow) 10/30/19 19:04 Urine Clarity Clear (Clear) 10/30/19 19:04 Urine pH 6.0 (5-8) 10/30/19 19:04 Ur Specific [place] 1.010 (1.005-1.025) 10/30/19 19:04 Urine Protein Negative mg/dL (Negative) 10/30/19 19:04 Urine Ketones 15 mg/dL (Negative) H 10/30/19 19:04 Urine Blood Small (Negative) H 10/30/19 19:04 Urine Nitrite Negative (Negative) 10/30/19 19:04 Urine Bilirubin Negative (Negative) 10/30/19 19:04 Urine Urobilinogen 2.0 EU/dL (Up TO 0.2) H 10/30/19 19:04 Ur Leukocyte Esterase Negative (Negative) 10/30/19 19:04 Urine RBC 20-50 HPF (0-2) H 10/30/19 19:04 Urine WBC 0-2 HPF (0-5) 10/30/19 19:04 Ur Epithelial Cells Negative HPF (Negative) 10/30/19 19:04 Urine Crystals Negative HPF (Negative) 10/30/19 19:04 Urine Bacteria Negative HPF (Negative) 10/30/19 19:04 Urine Casts Negative LPF (Negative) 10/30/19 19:04 Urine Mucus Negative (Negative) 10/30/19 19:04 Urine Other Negative (Negative) 10/30/19 19:04 Ur Culture Indicated? No 10/30/19 19:04 Urine Glucose 500 mg/dL (Negative) H 10/30/19 19:04 Gram Stain Cancelled 10/30/19 14:51 Anaerobic Culture Cancelled 10/30/19 14:51 Anaerob Organism Srce Cancelled 10/30/19 14:51 Anaer Org ID Rpt Status Cancelled 10/30/19 14:51
[2019-10-31 19:41] VITALS: BP 132/73; PULSE 74; RESP 18; TEMP 36.8; O2SAT 90
[2019-10-31] MEDS: Insulin Glargine 300 UNITS/3 ML PEN 15 UNITS SC (22:20)
[2019-10-31 23:20] VITALS: BP 143/74; PULSE 78; RESP 18; TEMP 37.1; O2SAT 91
[2019-11-01 03:50] VITALS: BP 144/83; PULSE 73; RESP 17; TEMP 36.7; O2SAT 96
[2019-11-01] MEDS: Normal Saline Flush 10 ML SYR IVP ×5 (04:17→15:26)
[2019-11-01] MEDS: VANCOMYCIN 1,000 MG in Normal Saline 250 ML 166.667 MG IV ×2 (04:17→15:26)
[2019-11-01] MEDS: Ketorolac 15 MG/ML VIAL IVP ×3 (05:58→22:09)
[2019-11-01] MEDS: ACETAMINOPHEN 1,000 MG/100 ML BTL 400 MG IVPB ×3 (06:00→22:08)
[2019-11-01] MEDS: PIPERACILLIN/TAZO 4.5 GM in Normal Saline 100 ML IVPB ×3 (06:00→22:42)
[2019-11-01 07:11] LABS: Absolute Eosinophil Count 0.11 k/cumm (0.0-0.7); Absolute Lymphocyte Count 1.67 k/cumm (1.2-3.4); Absolute Monocyte Count 1.14 k/cumm (0.11-0.7); Basophils % 0.1; Eosinophils % 0.7; HCT 36.6 % (40.0-50.0); HGB 12.2 g/dL (13.5-17.5); Immature Grans % 0.6 %; Lymphocytes % 10.3; Mean Corp. HGB Concentration 33.3 g/dL (32.0-36.0); Mean Corpuscular Volume 87.1 fL (80-95); Neutrophils % 81.3; Platelet Count 232 x1000/uL (130-400); RBC Distribution Width 12.4 % (11.8-14.1); White Blood Cell Count 16.26 k/cumm (4.4-10.8)
[2019-11-01 07:32] LABS: Absolute Basophil Count 0.02 k/cumm (0.0-0.2); Absolute Neutrophil Count 13.22 k/cumm (1.2-6.7)
[2019-11-01 07:33] LABS: Anion Gap 6.4 mmol/L (3-11); BUN 13 mg/dL (7-18); C-Reactive Protein 20.95 mg/dL (0.0-0.3); CO2 27.6 mmol/L (21.0-32.0); Calcium 7.7 mg/dL (8.5-10.1); Chloride 104 mmol/L (98-107); Glucose 137 mg/dL (74-106); Magnesium 1.9 mg/dL (1.8-2.4); Sodium 138 mmol/L (136-145)
[2019-11-01 07:50] VITALS: BP 152/80; PULSE 75; RESP 18; TEMP 36.8; O2SAT 93
[2019-11-01] MEDS: Insulin Aspart 300 UNITS/3 ML PEN SC ×4 (09:20→17:18)
[2019-11-01] MEDS: Enoxaparin 40 MG/0.4 ML SYR SC (09:21)
[2019-11-01] MEDS: Ketoconazole 2% CREAM 15 GM TUBE TP (09:22)
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
[2019-11-01 11:45] VITALS: BP 156/86; PULSE 70; RESP 16; TEMP 37.1; O2SAT 93
--- NOTE | 2019-11-01 11:46 | PGE_ITS ---
Date of Service Date of service: 11/01/19 Time of Service: 11:46 Assessment and Plan Assessment and plan (1) New onset type 2 diabetes mellitus: Status: Acute Assessment and plan: Adjusting to insulin injections and he thinks he could administer these himself. Recent change in the dosing yesterday and I like to see how his blood sugars respond to today before making further adjustments. I think it is best to plan on insulin for the near term and a discussion can take place as an outpatient whether or not to transition him to an oral agent instead. He thinks he can learn how to administer insulin himself. (2) Hypertension: Status: Chronic Assessment and plan: Blood pressures up and down a bit. I like to get more data points before deciding whether or not to start on medication. If medicine started, lisinopril will be chosen. (3) Abscess of left shoulder: Status: Acute Assessment and plan: Pain management adequate. VAC system functioning. No identification of gram-negative jaylin seen on Gram stain of the original wound culture and if there is no growth over the next 24 hours discontinue Pipracil/ tazobactam. Continue vancomycin. (4) MRSA cellulitis: Status: Acute Assessment and plan: As above, continue vancomycin. Duration of treatment is a little fluid, depending upon clinical response. Subjective Subjective Interval history since last seen: Feeling better, only complaint is that he still on clear liquids and Jell-O. Pain in the shoulder quite tolerable. No nausea or vomiting. Blood sugars have been slowly trending down. He thinks he can give himself insulin shots after discharge. White blood cell count and CRP unchanged from yesterday. Exam Narrative Exam Narrative: Looks well no distress. Wound vacuum system in place. No fever, blood pressures a bit labile low of 124 systolic, high of 152 this morni ng. No JVD. Clear lungs. No heart murmur. Dressing system with vacuum tubing from the posterior left shoulder intact with mild erythema at the exit site as well as on the inner aspect of his left upper arm. Some induration present but no tenderness. He is got an excellent pulse at the wrist and normal light touch sensation. He does not have pain with abduction and forward flexion of his corry ulder. Soft abdomen with active bowel sounds. He has sequential compression devices on both lower extremities, no pitting edema at the feet. Objective Objective Clinical Data: Abnormal lab results EKG from yesterday sinus rhythm with frequent PVCs. Anaerobic culture no growth thus far. 11/01/19 11/01/19 Range/Units 06:47 06:47 WBC 16.26 H (4.4-10.8) k/cumm RBC 4.20 L (4.50-6.00) m/cumm Hgb 12.2 L (13.5-17.5) g/dL Hct 36.6 L (40.0-50.0) % Absolute Neutrophils 13.22 H (1.2-6.7) k/cumm Absolute Monocytes 1.14 H (0.11-0.7) k/cumm Glucose 137 H D (74-106) mg/dL Calcium 7.7 L (8.5-10.1) mg/dL C-Reactive Protein 20.95 H (0.0-0.3) mg/dL Vital Signs Temperature 36.8 C 11/01/19 07:50 Temperature Source Skin 11/01/19 07:50 Pulse 75 11/01/19 07:50 Pulse Rhythm Regular 11/01/19 09:15 Respiratory Rate 18 11/01/19 07:50 Respiratory Effort Non-Labored 11/01/19 09:15 Respiratory Depth Normal 11/01/19 09:15 Respiratory Pattern Normal 11/01/19 09:15 Blood Pressure 152/80 H 11/01/19 07:50 Blood Pressure Position Sitting 10/30/19 12:50 Pulse Oximetry 93 L 11/01/19 07:50 Respiratory End-tidal CO2 33 10/30/19 15:45 Oxygen Delivery Method Room Air 11/01/19 07:50 Oxygen Flow Rate 0 11/01/19 07:50 Pain Level 3 11/01/19 07:50 Comment 11/01/19 07:50 Intake & Output 10/31/19 10/31/19 11/01/19 11:59 23:59 11:59 Intake Total 2007.083 / 5062.083 3055.000 / 5062.083 350 / 350 Output Total 950 / 1763 813 / 1763 125 / 125 Balance 1057.083 / 3299.083 2242.000 / 3299.083 225 / 225 Intake: IV 877.083 / 2977.083 2100.000 / 2977.083 350 / 350 Oral 1130 / 2085 955 / 2085 Output: Urine 950 / 1730 780 / 1730 125 / 125 Post Void Residual Other: Urine Color Dark Melita Light Melita Light Melita Urine Appearance Clear Cloudy Clear Urine Odor Normal Normal Voiding Methods Urinal Urinal Urinal Laboratory Results WBC 16.26 k/cumm (4.4-10.8) H 11/01/19 06:47 RBC 4.20 m/cumm (4.50-6.00) L 11/01/19 06:47 Hgb 12.2 g/dL (13.5-17.5) L 11/01/19 06:47 Hct 36.6 % (40.0-50.0) L 11/01/19 06:47 MCV 87.1 fL (80-95) 11/01/19 06:47 MCH 29.0 pg (27.0-33.0) 11/01/19 06:47 MCHC 33.3 g/dL (32.0-36.0) 11/01/19 06:47 RDW 12.4 % (11.8-14.1) 11/01/19 06:47 Plt Count 232 x1000/uL (130-400) 11/01/19 06:47 MPV 11.0 fL (8.0-11.0) 11/01/19 06:47 Immature Gran % 0.6 % 11/01/19 06:47 Neutrophils % 81.3 11/01/19 06:47 Lymphocytes % 10.3 11/01/19 06:47 Monocytes % 7.0 11/01/19 06:47 Eosinophils % 0.7 11/01/19 06:47 Basophils % 0.1 11/01/19 06:47 Absolute Neutrophils 13.22 k/cumm (1.2-6.7) H 11/01/19 06:47 Absolute Lymphocytes 1.67 k/cumm (1.2-3.4) 11/01/19 06:47 Absolute Monocytes 1.14 k/cumm (0.11-0.7) H 11/01/19 06:47 Absolute Eosinophils 0.11 k/cumm (0.0-0.7) 11/01/19 06:47 Absolute Basophils 0.02 k/cumm (0.0-0.2) 11/01/19 06:47 Differential Comment Diff reviewed 10/31/19 06:52 RBC Morphology See below 10/31/19 06:52 Polychromasia Present 10/31/19 06:52 Anisocytosis 1+ 10/31/19 06:52 PT 11.6 sec (9.3-11.0) H 10/30/19 14:27 INR 1.2 (0.9-1.1) H 10/30/19 14:27 VBG pH 7.49 (7.35-7.45) H 10/30/19 14:27 VBG pCO2 34 mm/Hg (34-47) 10/30/19 14:27 VBG pO2 47 mm/Hg (28-44) H 10/30/19 14:27 VBG HCO3 26 mmol/L (22-28) 10/30/19 14:27 VBG Total CO2 23 mmol/L (22-29) 10/30/19 14:27 VBG O2 Saturation 87 % (70-80) H 10/30/19 14:27 VBG Base Excess 2.4 mmol/L (-3-3) 10/30/19 14:27 Sodium 138 mmol/L (136-145) 11/01/19 06:47 Potassium 4.0 mmol/L (3.5-5.1) 11/01/19 06:47 Chloride 104 mmol/L (98-107) 11/01/19 06:47 Carbon Dioxide 27.6 mmol/L (21.0-32.0) 11/01/19 06:47 Anion Gap 6.4 mmol/L (3-11) 11/01/19 06:47 BUN 13 mg/dL (7-18) 11/01/19 06:47 Creatinine 0.90 mg/dL (0.70-1.30) 11/01/19 06:47 Estimated GFR/1.73 m2 >= 60.00 (mL/min/1.73m2) 11/01/19 06:47 Glucose 137 mg/dL (74-106) H D 11/01/19 06:47 Hemoglobin A1c 10.4 % (3.8-5.6) H 10/30/19 14:27 Lactate Cancelled 10/30/19 13:51 Calcium 7.7 mg/dL (8.5-10.1) L 11/01/19 06:47 Magnesium 1.9 mg/dL (1.8-2.4) 11/01/19 06:47 Total Bilirubin 1.3 mg/dL (0.2-1.0) H 10/30/19 13:40 AST 19 U/L (15-37) 10/30/19 13:40 ALT 28 U/L (16-63) 10/30/19 13:40 Alkaline Phosphatase 104 U/L (46-116) 10/30/19 13:40 C-Reactive Protein 20.95 mg/dL (0.0-0.3) H 11/01/19 06:47 Total Protein 7.8 g/dL (6.4-8.2) 10/30/19 13:40 Albumin 3.5 g/dL (3.4-5.0) 10/30/19 13:40 Procalcitonin 0.5 ng/mL 10/31/19 06:52 TSH 0.63 uIU/mL (0.36-3.74) 10/31/19 06:52 Urine Color Yellow (Yellow) 10/30/19 19:04 Urine Clarity Clear (Clear) 10/30/19 19:04 Urine pH 6.0 (5-8) 10/30/19 19:04 Ur Specific [place] 1.010 (1.005-1.025) 10/30/19 19:04 Urine Protein Negative mg/dL (Negative) 10/30/19 19:04 Urine Ketones 15 mg/dL (Negative) H 10/30/19 19:04 Urine Blood Small (Negative) H 10/30/19 19:04 Urine Nitrite Negative (Negative) 10/30/19 19:04 Urine Bilirubin Negative (Negative) 10/30/19 19:04 Urine Urobilinogen 2.0 EU/dL (Up TO 0.2) H 10/30/19 19:04 Ur Leukocyte Esterase Negative (Negative) 10/30/19 19:04 Urine RBC 20-50 HPF (0-2) H 10/30/19 19:04 Urine WBC 0-2 HPF (0-5) 10/30/19 19:04 Ur Epithelial Cells Negative HPF (Negative) 10/30/19 19:04 Urine Crystals Negative HPF (Negative) 10/30/19 19:04 Urine Bacteria Negative HPF (Negative) 10/30/19 19:04 Urine Casts Negative LPF (Negative) 10/30/19 19:04 Urine Mucus Negative (Negative) 10/30/19 19:04 Urine Other Negative (Negative) 10/30/19 19:04 Ur Culture Indicated? No 10/30/19 19:04 Urine Glucose 500 mg/dL (Negative) H 10/30/19 19:04 Gram Stain Cancelled 10/30/19 14:51 Anaerobic Culture Cancelled 10/30/19 14:51 Anaerob Organism Srce Cancelled 10/30/19 14:51 Anaer Org ID Rpt Status Cancelled 10/30/19 14:51
--- NOTE | 2019-11-01 11:59 | PGE_ITS ---
Date of Service Date of service: 11/01/19 Time of Service: 11:59 Assessment and Plan Assessment and plan (1) Abscess of arm, left: Status: Acute Assessment and plan: He is improving They have questions for the clinical applications specialist Anticipate discharge early next week with a wound VAC Subjective Subjective Interval history since last seen: Pain is controlled Arm mobility slightly improved, is working with PT Exam Narrative Exam Narrative: No distress Left shoulder wound VAC in good position. Minimal surrounding skin erythema Left arm is still swollen but improved per the patient. Objective Objective Clinical Data: Abnormal lab results 11/01/19 11/01/19 Range/Units 06:47 06:47 WBC 16.26 H (4.4-10.8) k/cumm RBC 4.20 L (4.50-6.00) m/cumm Hgb 12.2 L (13.5-17.5) g/dL Hct 36.6 L (40.0-50.0) % Absolute Neutrophils 13.22 H (1.2-6.7) k/cumm Absolute Monocytes 1.14 H (0.11-0.7) k/cumm Glucose 137 H D (74-106) mg/dL Calcium 7.7 L (8.5-10.1) mg/dL C-Reactive Protein 20.95 H (0.0-0.3) mg/dL Vital Signs Temperature 98.2 F 11/01/19 07:50 Temperature Source Skin 11/01/19 07:50 Pulse 75 11/01/19 07:50 Pulse Rhythm Regular 11/01/19 09:15 Respiratory Rate 18 11/01/19 07:50 Respiratory Effort Non-Labored 11/01/19 09:15 Respiratory Depth Normal 11/01/19 09:15 Respiratory Pattern Normal 11/01/19 09:15 Blood Pressure 152/80 H 11/01/19 07:50 Blood Pressure Position Sitting 10/30/19 12:50 Pulse Oximetry 93 L 11/01/19 07:50 Respiratory End-tidal CO2 33 10/30/19 15:45 Oxygen Delivery Method Room Air 11/01/19 07:50 Oxygen Flow Rate 0 11/01/19 07:50 Pain Level 3 11/01/19 07:50 Comment 11/01/19 07:50 Intake & Output 10/31/19 10/31/19 11/01/19 11:59 23:59 11:59 Intake Total 2007.083 / 5062.083 3055.000 / 5062.083 350 / 350 Output Total 950 / 1763 813 / 1763 125 / 125 Balance 1057.083 / 3299.083 2242.000 / 3299.083 225 / 225 Intake: IV 877.083 / 2977.083 2100.000 / 2977.083 350 / 350 Oral 1130 / 2085 955 / 2085 Output: Urine 950 / 1730 780 / 1730 125 / 125 Post Void Residual Other: Urine Color Dark Melita Light Melita Light Melita Urine Appearance Clear Cloudy Clear Urine Odor Normal Normal Voiding Methods Urinal Urinal Urinal Laboratory Results WBC 16.26 k/cumm (4.4-10.8) H 11/01/19 06:47 RBC 4.20 m/cumm (4.50-6.00) L 11/01/19 06:47 Hgb 12.2 g/dL (13.5-17.5) L 11/01/19 06:47 Hct 36.6 % (40.0-50.0) L 11/01/19 06:47 MCV 87.1 fL (80-95) 11/01/19 06:47 MCH 29.0 pg (27.0-33.0) 11/01/19 06:47 MCHC 33.3 g/dL (32.0-36.0) 11/01/19 06:47 RDW 12.4 % (11.8-14.1) 11/01/19 06:47 Plt Count 232 x1000/uL (130-400) 11/01/19 06:47 MPV 11.0 fL (8.0-11.0) 11/01/19 06:47 Immature Gran % 0.6 % 11/01/19 06:47 Neutrophils % 81.3 11/01/19 06:47 Lymphocytes % 10.3 11/01/19 06:47 Monocytes % 7.0 11/01/19 06:47 Eosinophils % 0.7 11/01/19 06:47 Basophils % 0.1 11/01/19 06:47 Absolute Neutrophils 13.22 k/cumm (1.2-6.7) H 11/01/19 06:47 Absolute Lymphocytes 1.67 k/cumm (1.2-3.4) 11/01/19 06:47 Absolute Monocytes 1.14 k/cumm (0.11-0.7) H 11/01/19 06:47 Absolute Eosinophils 0.11 k/cumm (0.0-0.7) 11/01/19 06:47 Absolute Basophils 0.02 k/cumm (0.0-0.2) 11/01/19 06:47 Differential Comment Diff reviewed 10/31/19 06:52 RBC Morphology See below 10/31/19 06:52 Polychromasia Present 10/31/19 06:52 Anisocytosis 1+ 10/31/19 06:52 PT 11.6 sec (9.3-11.0) H 10/30/19 14:27 INR 1.2 (0.9-1.1) H 10/30/19 14:27 VBG pH 7.49 (7.35-7.45) H 10/30/19 14:27 VBG pCO2 34 mm/Hg (34-47) 10/30/19 14:27 VBG pO2 47 mm/Hg (28-44) H 10/30/19 14:27 VBG HCO3 26 mmol/L (22-28) 10/30/19 14:27 VBG Total CO2 23 mmol/L (22-29) 10/30/19 14:27 VBG O2 Saturation 87 % (70-80) H 10/30/19 14:27 VBG Base Excess 2.4 mmol/L (-3-3) 10/30/19 14:27 Sodium 138 mmol/L (136-145) 11/01/19 06:47 Potassium 4.0 mmol/L (3.5-5.1) 11/01/19 06:47 Chloride 104 mmol/L (98-107) 11/01/19 06:47 Carbon Dioxide 27.6 mmol/L (21.0-32.0) 11/01/19 06:47 Anion Gap 6.4 mmol/L (3-11) 11/01/19 06:47 BUN 13 mg/dL (7-18) 11/01/19 06:47 Creatinine 0.90 mg/dL (0.70-1.30) 11/01/19 06:47 Estimated GFR/1.73 m2 >= 60.00 (mL/min/1.73m2) 11/01/19 06:47 Glucose 137 mg/dL (74-106) H D 11/01/19 06:47 Hemoglobin A1c 10.4 % (3.8-5.6) H 10/30/19 14:27 Lactate Cancelled 10/30/19 13:51 Calcium 7.7 mg/dL (8.5-10.1) L 11/01/19 06:47 Magnesium 1.9 mg/dL (1.8-2.4) 11/01/19 06:47 Total Bilirubin 1.3 mg/dL (0.2-1.0) H 10/30/19 13:40 AST 19 U/L (15-37) 10/30/19 13:40 ALT 28 U/L (16-63) 10/30/19 13:40 Alkaline Phosphatase 104 U/L (46-116) 10/30/19 13:40 C-Reactive Protein 20.95 mg/dL (0.0-0.3) H 11/01/19 06:47 Total Protein 7.8 g/dL (6.4-8.2) 10/30/19 13:40 Albumin 3.5 g/dL (3.4-5.0) 10/30/19 13:40 Procalcitonin 0.5 ng/mL 10/31/19 06:52 TSH 0.63 uIU/mL (0.36-3.74) 10/31/19 06:52 Urine Color Yellow (Yellow) 10/30/19 19:04 Urine Clarity Clear (Clear) 10/30/19 19:04 Urine pH 6.0 (5-8) 10/30/19 19:04 Ur Specific [place] 1.010 (1.005-1.025) 10/30/19 19:04 Urine Protein Negative mg/dL (Negative) 10/30/19 19:04 Urine Ketones 15 mg/dL (Negative) H 10/30/19 19:04 Urine Blood Small (Negative) H 10/30/19 19:04 Urine Nitrite Negative (Negative) 10/30/19 19:04 Urine Bilirubin Negative (Negative) 10/30/19 19:04 Urine Urobilinogen 2.0 EU/dL (Up TO 0.2) H 10/30/19 19:04 Ur Leukocyte Esterase Negative (Negative) 10/30/19 19:04 Urine RBC 20-50 HPF (0-2) H 10/30/19 19:04 Urine WBC 0-2 HPF (0-5) 10/30/19 19:04 Ur Epithelial Cells Negative HPF (Negative) 10/30/19 19:04 Urine Crystals Negative HPF (Negative) 10/30/19 19:04 Urine Bacteria Negative HPF (Negative) 10/30/19 19:04 Urine Casts Negative LPF (Negative) 10/30/19 19:04 Urine Mucus Negative (Negative) 10/30/19 19:04 Urine Other Negative (Negative) 10/30/19 19:04 Ur Culture Indicated? No 10/30/19 19:04 Urine Glucose 500 mg/dL (Negative) H 10/30/19 19:04 Gram Stain Cancelled 10/30/19 14:51 Anaerobic Culture Cancelled 10/30/19 14:51 Anaerob Organism Srce Cancelled 10/30/19 14:51 Anaer Org ID Rpt Status Cancelled 10/30/19 14:51
--- NOTE | 2019-11-01 12:12 | CMPROGNOTE_ITS ---
Care Management Progress Note S/O: Say continues to be closely monitored and is receiving education on diabetes management; reportes he feels confident in managing his own insulin injections post discharge. His blood pressures continue to be monitored, wound vac placed, and he remains on IV ABX (Pipracil/Tazobactam/Vancomycin) at this time. CM continues to follow. A: 69 year old male admitted to [facility] 10/30/19 for Left arm abscess, new onset diabetes P: Sya will return home when medically cleared with new orders for VNA RN to manage dressing changes and provide diabetic education-undetermined if he will require wound vac upon discharge. He will follow up with his PCP, and plan of care as prescribed. CM will continue to follow.
[2019-11-01 15:45] VITALS: BP 142/81; PULSE 66; RESP 14; TEMP 37.2; O2SAT 94
[2019-11-01 19:34] VITALS: BP 157/88; PULSE 72; RESP 20; TEMP 36; O2SAT 93
[2019-11-01] MEDS: Insulin Glargine 300 UNITS/3 ML PEN 15 UNITS SC (22:09)
[2019-11-01 23:14] VITALS: BP 154/86; PULSE 68; RESP 16; TEMP 37; O2SAT 94
[2019-11-02 04:07] LABS: HCT 35.4 % (40.0-50.0); HGB 12.2 g/dL (13.5-17.5); Mean Corp. HGB Concentration 34.5 g/dL (32.0-36.0); Mean Corpuscular Hemoglobin 29.8 pg (27.0-33.0); Mean Corpuscular Volume 86.6 fL (80-95); Mean Platelet Volume 10.8 fL (8.0-11.0); Platelet Count 252 x1000/uL (130-400); RBC 4.09 m/cumm (4.50-6.00); RBC Distribution Width 12.1 % (11.8-14.1); White Blood Cell Count 12.52 k/cumm (4.4-10.8)
[2019-11-02 04:30] VITALS: BP 168/107; PULSE 80; RESP 18; TEMP 37; O2SAT 94
[2019-11-02 05:11] LABS: Vancomycin, Trough 8.4 ug/mL (10.0-20.0)
[2019-11-02] MEDS: VANCOMYCIN 1,000 MG in Normal Saline 250 ML 1667.667 MG IV (05:25)
[2019-11-02] MEDS: Normal Saline Flush 10 ML SYR IVP ×3 (06:22→22:22)
[2019-11-02] MEDS: ACETAMINOPHEN 1,000 MG/100 ML BTL 400 MG IVPB ×3 (06:23→22:19)
[2019-11-02] MEDS: PIPERACILLIN/TAZO 4.5 GM in Normal Saline 100 ML IVPB (06:23)
[2019-11-02] MEDS: Ketorolac 15 MG/ML VIAL IVP ×3 (06:23→22:19)
[2019-11-02 07:29] VITALS: BP 153/74; PULSE 81; RESP 19; TEMP 36.7; O2SAT 97
[2019-11-02] MEDS: Enoxaparin 40 MG/0.4 ML SYR SC (10:00)
[2019-11-02] MEDS: Insulin Aspart 300 UNITS/3 ML PEN SC ×5 (10:00→17:21)
[2019-11-02] MEDS: Ketoconazole 2% CREAM 15 GM TUBE TP (10:01)
[2019-11-02] MEDS: Lisinopril 5 MG TAB PO (10:36)
--- NOTE | 2019-11-02 10:48 | W.PM.PROGNOT ---
Date of Service Date of service: 11/02/19 Time of Service: 10:48 Assessment and Plan Assessment and plan (1) New onset type 2 diabetes mellitus: Status: Acute Assessment and plan: Blood sugars are coming down and I am decreasing his long-acting insulin to avoid hypoglycemia. Continue current meal associated aspart. Monitor blood sugar response at this dose may also need to be adjusted downward. (2) Hypertension: Status: Chronic Assessment and plan: There have been sufficient number of elevated blood pressure readings that I am starting lisinopril today. Reviewed potential side effects. Dose adjustment may need to be made on an outpatient basis. (3) Abscess of left shoulder: Status: Acute Assessment and plan: Overall clinical parameters point towards improvement. The gram-negative jaylin noted on wound culture Gram stain, prior to antibiotics and prior to his surgical drainage, has not grown out of any culture. I think that the Zosyn can be discontinued but defer to the surgical team. Continue vancomycin at least through today, and, with continued improvement, could switch in 24 to 48 hours to clindamycin 450 mg 3 times daily to complete a 10 to 14-day treatment course as an outpatient. (4) MRSA cellulitis: Status: Acute Assessment and plan: As above, continue vancomycin with dose adjustment based on drug level. Subjective Subjective Interval history since last seen: No significant discomfort in the left arm. A little bit of loose stools. No cough or wheeze. No chest pain or palpitations. No stomach upset. No dysuria. No paresthesias. Blood sugars have been coming down. No new culture information?the gram-negative jaylin identified on Gram stain has not grown from any culture. Blood pressures have been trending high. Exam Narrative Exam Narrative: Sitting in a chair he is in no distress. He has been afebrile. Blood pressures consistently above 140 diastolics as high as 107 but mostly in the 80s. Neck veins are flat. Lungs clear. No heart murmur. Soft abdomen with normal bowel sounds. No edema in the lower extremities. He has edema now tracking into the left forearm with no tenderness. Faint pinkness on the inner aspect of his triceps area. There is faint erythema around the wound site of the left posterior shoulder. He has no tenderness to palpation around the wound or on the inner arm. He has a good pulse in the wrist. There is no axillary adenopathy or tenderness. Light touch sensation in his left hand is normal. Objective Objective Clinical Data: Abnormal lab results White blood cell count is coming down. Most recent vancomycin trough is low. 11/02/19 11/02/19 Range/Units 03:40 03:40 WBC 12.52 H (4.4-10.8) k/cumm RBC 4.09 L (4.50-6.00) m/cumm Hgb 12.2 L (13.5-17.5) g/dL Hct 35.4 L (40.0-50.0) % Vancomycin Trough 8.4 L (10.0-20.0) ug/mL Vital Signs Temperature 36.7 C 11/02/19 07:29 Temperature Source Tympanic 11/02/19 07:29 Pulse 81 11/02/19 07:29 Pulse Rhythm Regular 11/01/19 20:00 Respiratory Rate 19 11/02/19 07:29 Respiratory Effort Non-Labored 11/01/19 20:00 Respiratory Depth Normal 11/01/19 20:00 Respiratory Pattern Normal 11/01/19 20:00 Blood Pressure 153/74 H 11/02/19 07:29 Blood Pressure Position Sitting 10/30/19 12:50 Pulse Oximetry 97 11/02/19 07:29 Respiratory End-tidal CO2 33 10/30/19 15:45 Oxygen Delivery Method Room Air 11/02/19 07:29 Oxygen Flow Rate 0 11/02/19 07:29 Pain Level 0 11/01/19 23:14 Comment 11/01/19 07:50 Intake & Output 11/01/19 11/01/19 11/02/19 11:59 23:59 12:59 Intake Total 550 / 1220 670 / 1220 450 / 450 Output Total 325 / 600 275 / 600 Balance 225 / 620 395 / 620 450 / 450 Intake: IV 550 / 1100 550 / 1100 450 / 450 Oral 120 / 120 Output: Urine 325 / 600 275 / 600 Other: Urine Color Light Melita Light Melita Urine Appearance Clear Clear Urine Odor Normal Stool Characteristics Formed Voiding Methods Urinal Urinal Laboratory Results WBC 12.52 k/cumm (4.4-10.8) H 11/02/19 03:40 RBC 4.09 m/cumm (4.50-6.00) L 11/02/19 03:40 Hgb 12.2 g/dL (13.5-17.5) L 11/02/19 03:40 Hct 35.4 % (40.0-50.0) L 11/02/19 03:40 MCV 86.6 fL (80-95) 11/02/19 03:40 MCH 29.8 pg (27.0-33.0) 11/02/19 03:40 MCHC 34.5 g/dL (32.0-36.0) 11/02/19 03:40 RDW 12.1 % (11.8-14.1) 11/02/19 03:40 Plt Count 252 x1000/uL (130-400) 11/02/19 03:40 MPV 10.8 fL (8.0-11.0) 11/02/19 03:40 Immature Gran % 0.6 % 11/01/19 06:47 Neutrophils % 81.3 11/01/19 06:47 Lymphocytes % 10.3 11/01/19 06:47 Monocytes % 7.0 11/01/19 06:47 Eosinophils % 0.7 11/01/19 06:47 Basophils % 0.1 11/01/19 06:47 Absolute Neutrophils 13.22 k/cumm (1.2-6.7) H 11/01/19 06:47 Absolute Lymphocytes 1.67 k/cumm (1.2-3.4) 11/01/19 06:47 Absolute Monocytes 1.14 k/cumm (0.11-0.7) H 11/01/19 06:47 Absolute Eosinophils 0.11 k/cumm (0.0-0.7) 11/01/19 06:47 Absolute Basophils 0.02 k/cumm (0.0-0.2) 11/01/19 06:47 Differential Comment Diff reviewed 10/31/19 06:52 RBC Morphology See below 10/31/19 06:52 Polychromasia Present 10/31/19 06:52 Anisocytosis 1+ 10/31/19 06:52 PT 11.6 sec (9.3-11.0) H 10/30/19 14:27 INR 1.2 (0.9-1.1) H 10/30/19 14:27 VBG pH 7.49 (7.35-7.45) H 10/30/19 14:27 VBG pCO2 34 mm/Hg (34-47) 10/30/19 14:27 VBG pO2 47 mm/Hg (28-44) H 10/30/19 14:27 VBG HCO3 26 mmol/L (22-28) 10/30/19 14:27 VBG Total CO2 23 mmol/L (22-29) 10/30/19 14:27 VBG O2 Saturation 87 % (70-80) H 10/30/19 14:27 VBG Base Excess 2.4 mmol/L (-3-3) 10/30/19 14:27 Sodium 138 mmol/L (136-145) 11/01/19 06:47 Potassium 4.0 mmol/L (3.5-5.1) 11/01/19 06:47 Chloride 104 mmol/L (98-107) 11/01/19 06:47 Carbon Dioxide 27.6 mmol/L (21.0-32.0) 11/01/19 06:47 Anion Gap 6.4 mmol/L (3-11) 11/01/19 06:47 BUN 13 mg/dL (7-18) 11/01/19 06:47 Creatinine 0.90 mg/dL (0.70-1.30) 11/01/19 06:47 Estimated GFR/1.73 m2 >= 60.00 (mL/min/1.73m2) 11/01/19 06:47 Glucose 137 mg/dL (74-106) H D 11/01/19 06:47 Hemoglobin A1c 10.4 % (3.8-5.6) H 10/30/19 14:27 Lactate Cancelled 10/30/19 13:51 Calcium 7.7 mg/dL (8.5-10.1) L 11/01/19 06:47 Magnesium 1.9 mg/dL (1.8-2.4) 11/01/19 06:47 Total Bilirubin 1.3 mg/dL (0.2-1.0) H 10/30/19 13:40 AST 19 U/L (15-37) 10/30/19 13:40 ALT 28 U/L (16-63) 10/30/19 13:40 Alkaline Phosphatase 104 U/L (46-116) 10/30/19 13:40 C-Reactive Protein 20.95 mg/dL (0.0-0.3) H 11/01/19 06:47 Total Protein 7.8 g/dL (6.4-8.2) 10/30/19 13:40 Albumin 3.5 g/dL (3.4-5.0) 10/30/19 13:40 Procalcitonin 0.5 ng/mL 10/31/19 06:52 TSH 0.63 uIU/mL (0.36-3.74) 10/31/19 06:52 Urine Color Yellow (Yellow) 10/30/19 19:04 Urine Clarity Clear (Clear) 10/30/19 19:04 Urine pH 6.0 (5-8) 10/30/19 19:04 Ur Specific [place] 1.010 (1.005-1.025) 10/30/19 19:04 Urine Protein Negative mg/dL (Negative) 10/30/19 19:04 Urine Ketones 15 mg/dL (Negative) H 10/30/19 19:04 Urine Blood Small (Negative) H 10/30/19 19:04 Urine Nitrite Negative (Negative) 10/30/19 19:04 Urine Bilirubin Negative (Negative) 10/30/19 19:04 Urine Urobilinogen 2.0 EU/dL (Up TO 0.2) H 10/30/19 19:04 Ur Leukocyte Esterase Negative (Negative) 10/30/19 19:04 Urine RBC 20-50 HPF (0-2) H 10/30/19 19:04 Urine WBC 0-2 HPF (0-5) 10/30/19 19:04 Ur Epithelial Cells Negative HPF (Negative) 10/30/19 19:04 Urine Crystals Negative HPF (Negative) 10/30/19 19:04 Urine Bacteria Negative HPF (Negative) 10/30/19 19:04 Urine Casts Negative LPF (Negative) 10/30/19 19:04 Urine Mucus Negative (Negative) 10/30/19 19:04 Urine Other Negative (Negative) 10/30/19 19:04 Ur Culture Indicated? No 10/30/19 19:04 Urine Glucose 500 mg/dL (Negative) H 10/30/19 19:04 Vancomycin Trough 8.4 ug/mL (10.0-20.0) L 11/02/19 03:40 Gram Stain Cancelled 10/30/19 14:51 Anaerobic Culture Cancelled 10/30/19 14:51 Anaerob Organism Srce Cancelled 10/30/19 14:51 Anaer Org ID Rpt Status Cancelled 10/30/19 14:51
--- NOTE | 2019-11-02 11:30 | PT.INTREAT ---
PT Notes Visit Reasons: ABSCESS LEFT ARM, NEW ONSET DIABETES Inpatient Physical Therapy Treatment Note [facility] Date: 11/02/19 PRECAUTIONS:MRSA in wound. L shoulder sepsis. SUBJECTIVE: Pt reports that his arm is still swollen but states that it does feel slightly better today. OBJECTIVE: GAIT THEREX: Pt received AAROM to tolerance with shoulder flexion as well as elbow flexion and extension. Pt received light ROM to the wrist into flexion and extension. Pt was shown how to complete shoulder flexion, ER, PNF D1,D2 with a cane. Pt was also shown how to clasp hands together and complete shoulder flexion ROM while seated. Pt has a dowel at home that he will complete his ROM with. ASSESSMENT: Pt tolerated today's session well. It was explained to pt to not push his ROM too much so that he does not open the wound anymore but to his oksana. It was also explained for the pt to at least march in place every so often throughout the day and knee ext while seated. PLAN: Cont as per PT POC. TREATMENT CODE/TIME: 10:50-11:10 (20) MT
--- NOTE | 2019-11-02 11:53 | W.INDIABCONS ---
Date of service: 11/02/19 Time of Service: 11:53 Diabetes Inpatient Consult DESCRIPTION/ASSESSMENT: Appreciate diabetes consult for Mr. Carlin who is hospitalized with an abscess on his shoulder he reports started as a boil. In addition, he is found to have diabetes with A1c 10.4. BMI 29 States he has been having symptoms of nocturnal urination, thirst, headaches for about 6 months. During this hospitalization blood sugars were 200-300s over past 34 days with yesterday blood sugars in 100s with an increase inGlargine from 10 to 15 and addition of mealtime insulin of 5 units Novolog to cover food as well as sensitive insulin correction. He is eating 0-69 grams carbohydrate at a meal. Met with Mr. Carlin Sunday. He indicated he eats out many meals eating sandwich, pizza, [employer] quarter pounder with cheese; snacks on chips and ice cream. States he drinks soda all day. Mr. Carlin states he is physically active at work but not otherwise. He denies stress at work and at home. He has never monitored his blood sugars. INTERVENTION: Encouraged by improved glycemic response to medication changes. Only concern is a fixed insulin dose for varying carbohydrate intake. Reviewed diabetes food guide with him. Encouraged stopping sugar sweetened beverages as his first immediate step and he states he can and will do this. Suggested he will need a glucometer and he is willing to learn this. Unclear of discharge medication at this time. PLAN: Will follow up Sunday and follow blood sugars Suggest One Touch ultra mini or verio glucometer, strips and lancets Will support his discharge medication regimen as needed Will meet with him first thing Sunday and when discharge plans are clear Time Spent in Nutritional Counseling and Treatment: 15 minutes face to face 10/31/19
--- NOTE | 2019-11-02 15:27 | PDOC.CMPRO ---
Care Management Progress Note S/O: Say continues to be closely monitored and is receiving education on diabetes management; reports he feels confident in managing his own insulin injections post discharge. His blood pressures continue to be monitored, wound vac placed, and he remains on IV ABX (Pipracil/Tazobactam/Vancomycin) at this time. CM continues to follow. A: 69 year old male admitted to [facility] 10/30/19 for Left arm abscess, new onset diabetes P: Say will return home when medically cleared with new orders for VNA RN to manage dressing changes and provide diabetic education-undetermined if he will require wound vac upon discharge. He will follow up with his PCP, and plan of care as prescribed. CM will continue to follow.
[2019-11-02 15:44] VITALS: BP 168/89; PULSE 80; RESP 18; TEMP 37; O2SAT 95
--- NOTE | 2019-11-02 18:06 | NUR.NOTE ---
Nursing Note: Dr. Rodriguez was concerned of the area of erythema on the medial left elbow. Area was highlighted with a skin marker and will be monitored
[2019-11-02 19:32] VITALS: BP 161/86; PULSE 62; RESP 19; TEMP 36.6; O2SAT 96
[2019-11-02] MEDS: Lactobacillus Acidophilus CAP 1 CAP PO (20:02)
--- NOTE | 2019-11-02 20:06 | W.PM.PROGNOT ---
Date of Service Date of service: 11/02/19 Time of Service: 17:30 Assessment and Plan Assessment and plan (1) Abscess of arm, left: Status: Acute Assessment and plan: The VAC site looks good The area of erythema on the medial arm will need to be monitored - the periphery has been marked Cultures have only grown MRSA, will continue vancomycin and stop Zosyn Subjective Subjective Interval history since last seen: He has no complaints Arm feels slightly tight but has better ROM from yesterday Exam Narrative Exam Narrative: Appears well VAC in good position Left medial arm just above elbow has some erythema and dependent edema. There is not obvious cellulitis or abscess. Objective Objective Clinical Data: Abnormal lab results 11/02/19 11/02/19 Range/Units 03:40 03:40 WBC 12.52 H (4.4-10.8) k/cumm RBC 4.09 L (4.50-6.00) m/cumm Hgb 12.2 L (13.5-17.5) g/dL Hct 35.4 L (40.0-50.0) % Vancomycin Trough 8.4 L (10.0-20.0) ug/mL Vital Signs Temperature 97.9 F 11/02/19 19:32 Temperature Source Tympanic 11/02/19 19:32 Pulse 62 11/02/19 19:32 Pulse Rhythm Irregular 11/02/19 17:50 Respiratory Rate 19 11/02/19 19:32 Respiratory Effort Non-Labored 11/02/19 17:50 Respiratory Depth Normal 11/02/19 17:50 Respiratory Pattern Normal 11/02/19 17:50 Blood Pressure 161/86 H 11/02/19 19:32 Blood Pressure Position Sitting 10/30/19 12:50 Pulse Oximetry 96 11/02/19 19:32 Respiratory End-tidal CO2 33 10/30/19 15:45 Oxygen Delivery Method Room Air 11/02/19 19:32 Oxygen Flow Rate 0 11/02/19 19:32 Pain Level 0 11/02/19 19:32 Comment 11/01/19 07:50 Intake & Output 11/01/19 11/02/19 11/02/19 22:59 11:59 23:59 Intake Total 490 / 1040 Output Total 350 / 350 Balance 140 / 690 Intake: IV 250 / 800 Oral 240 / 240 Output: Urine 350 / 350 Other: Urine Color Dark Melita Urine Appearance Clear Stool Characteristics Voiding Methods Urinal Laboratory Results WBC 12.52 k/cumm (4.4-10.8) H 11/02/19 03:40 RBC 4.09 m/cumm (4.50-6.00) L 11/02/19 03:40 Hgb 12.2 g/dL (13.5-17.5) L 11/02/19 03:40 Hct 35.4 % (40.0-50.0) L 11/02/19 03:40 MCV 86.6 fL (80-95) 11/02/19 03:40 MCH 29.8 pg (27.0-33.0) 11/02/19 03:40 MCHC 34.5 g/dL (32.0-36.0) 11/02/19 03:40 RDW 12.1 % (11.8-14.1) 11/02/19 03:40 Plt Count 252 x1000/uL (130-400) 11/02/19 03:40 MPV 10.8 fL (8.0-11.0) 11/02/19 03:40 Immature Gran % 0.6 % 11/01/19 06:47 Neutrophils % 81.3 11/01/19 06:47 Lymphocytes % 10.3 11/01/19 06:47 Monocytes % 7.0 11/01/19 06:47 Eosinophils % 0.7 11/01/19 06:47 Basophils % 0.1 11/01/19 06:47 Absolute Neutrophils 13.22 k/cumm (1.2-6.7) H 11/01/19 06:47 Absolute Lymphocytes 1.67 k/cumm (1.2-3.4) 11/01/19 06:47 Absolute Monocytes 1.14 k/cumm (0.11-0.7) H 11/01/19 06:47 Absolute Eosinophils 0.11 k/cumm (0.0-0.7) 11/01/19 06:47 Absolute Basophils 0.02 k/cumm (0.0-0.2) 11/01/19 06:47 Differential Comment Diff reviewed 10/31/19 06:52 RBC Morphology See below 10/31/19 06:52 Polychromasia Present 10/31/19 06:52 Anisocytosis 1+ 10/31/19 06:52 PT 11.6 sec (9.3-11.0) H 10/30/19 14:27 INR 1.2 (0.9-1.1) H 10/30/19 14:27 VBG pH 7.49 (7.35-7.45) H 10/30/19 14:27 VBG pCO2 34 mm/Hg (34-47) 10/30/19 14: VBG pO2 47 mm/Hg (28-44) H 10/30/19 14:27 VBG HCO3 26 mmol/L (22-28) 10/30/19 14:27 VBG Total CO2 23 mmol/L (22-29) 10/30/19 14:27 VBG O2 Saturation 87 % (70-80) H 10/30/19 14:27 VBG Base Excess 2.4 mmol/L (-3-3) 10/30/19 14:27 Sodium 138 mmol/L (136-145) 11/01/19 06:47 Potassium 4.0 mmol/L (3.5-5.1) 11/01/19 06:47 Chloride 104 mmol/L (98-107) 11/01/19 06:47 Carbon Dioxide 27.6 mmol/L (21.0-32.0) 11/01/19 06:47 Anion Gap 6.4 mmol/L (3-11) 11/01/19 06:47 BUN 13 mg/dL (7-18) 11/01/19 06:47 Creatinine 0.90 mg/dL (0.70-1.30) 11/01/19 06:47 Estimated GFR/1.73 m2 >= 60.00 (mL/min/1.73m2) 11/01/19 06:47 Glucose 137 mg/dL (74-106) H D 11/01/19 06:47 Hemoglobin A1c 10.4 % (3.8-5.6) H 10/30/19 14:27 Lactate Cancelled 10/30/19 13:51 Calcium 7.7 mg/dL (8.5-10.1) L 11/01/19 06:47 Magnesium 1.9 mg/dL (1.8-2.4) 11/01/19 06:47 Total Bilirubin 1.3 mg/dL (0.2-1.0) H 10/30/19 13:40 AST 19 U/L (15-37) 10/30/19 13:40 ALT 28 U/L (16-63) 10/30/19 13:40 Alkaline Phosphatase 104 U/L (46-116) 10/30/19 13:40 C-Reactive Protein 20.95 mg/dL (0.0-0.3) H 11/01/19 06:47 Total Protein 7.8 g/dL (6.4-8.2) 10/30/19 13:40 Albumin 3.5 g/dL (3.4-5.0) 10/30/19 13:40 Procalcitonin 0.5 ng/mL 10/31/19 06:52 TSH 0.63 uIU/mL (0.36-3.74) 10/31/19 06:52 Urine Color Yellow (Yellow) 10/30/19 19:04 Urine Clarity Clear (Clear) 10/30/19 19:04 Urine pH 6.0 (5-8) 10/30/19 19:04 Ur Specific [place] 1.010 (1.005-1.025) 10/30/19 19:04 Urine Protein Negative mg/dL (Negative) 10/30/19 19:04 Urine Ketones 15 mg/dL (Negative) H 10/30/19 19:04 Urine Blood Small (Negative) H 10/30/19 19:04 Urine Nitrite Negative (Negative) 10/30/19 19:04 Urine Bilirubin Negative (Negative) 10/30/19 19:04 Urine Urobilinogen 2.0 EU/dL (Up TO 0.2) H 10/30/19 19:04 Ur Leukocyte Esterase Negative (Negative) 10/30/19 19:04 Urine RBC 20-50 HPF (0-2) H 10/30/19 19:04 Urine WBC 0-2 HPF (0-5) 10/30/19 19:04 Ur Epithelial Cells Negative HPF (Negative) 10/30/19 19:04 Urine Crystals Negative HPF (Negative) 10/30/19 19:04 Urine Bacteria Negative HPF (Negative) 10/30/19 19:04 Urine Casts Negative LPF (Negative) 10/30/19 19:04 Urine Mucus Negative (Negative) 10/30/19 19:04 Urine Other Negative (Negative) 10/30/19 19:04 Ur Culture Indicated? No 10/30/19 19:04 Urine Glucose 500 mg/dL (Negative) H 10/30/19 19:04 Vancomycin Trough 8.4 ug/mL (10.0-20.0) L 11/02/19 03:40 Gram Stain Cancelled 10/30/19 14:51 Anaerobic Culture Cancelled 10/30/19 14:51 Anaerob Organism Srce Cancelled 10/30/19 14:51 Anaer Org ID Rpt Status Cancelled 10/30/19 14:51
[2019-11-02] MEDS: Insulin Glargine 300 UNITS/3 ML PEN 10 UNITS SC (22:20)
[2019-11-02 23:25] VITALS: BP 164/88; PULSE 77; RESP 19; TEMP 36.8; O2SAT 95
--- NOTE | 2019-11-03 | DI.US_ITS ---
EXAM: US SOFT TISSUE EXTREMITY CLINICAL HISTORY: ABCESS LT ARM, ONSET OF NEW RED SPOT ON UPPER ARM. TECHNIQUE: Ultrasound was performed using standard protocol. Sonographic assessment utilizing nathaly shabbir and color Doppler imaging was performed and targeted to the area of clinical concern. COMPARISON: No exams were available for comparison FINDINGS: There is edema seen in the subcutaneous tissues of the left upper extremity. This includes a 4.6 x 0 .7 x 2.2 cm collection of fluid in the subcutaneous tissues. It does not appear to be encapsulated l gail an abscess. No definite abscess is appreciated. DATA REPOSITORY:
[2019-11-03 04:03] VITALS: BP 174/88; PULSE 71; RESP 16; TEMP 37.1; O2SAT 95
[2019-11-03] MEDS: Ketorolac 15 MG/ML VIAL IVP ×3 (05:55→22:12)
[2019-11-03] MEDS: ACETAMINOPHEN 1,000 MG/100 ML BTL 400 MG IVPB ×2 (05:55→14:02)
[2019-11-03] MEDS: Normal Saline Flush 10 ML SYR IVP ×3 (05:55→22:11)
[2019-11-03 07:42] VITALS: BP 176/91; PULSE 59; RESP 18; TEMP 36.8; O2SAT 95
[2019-11-03] MEDS: Ketoconazole 2% CREAM 15 GM TUBE TP (09:21)
[2019-11-03] MEDS: Lisinopril 5 MG TAB PO (09:21)
[2019-11-03] MEDS: Lactobacillus Acidophilus CAP 1 CAP PO ×2 (09:21→19:34)
[2019-11-03] MEDS: Enoxaparin 40 MG/0.4 ML SYR SC (09:21)
[2019-11-03] MEDS: Insulin Aspart 300 UNITS/3 ML PEN SC ×5 (09:22→22:14)
--- NOTE | 2019-11-03 10:21 | W.PM.PROGNOT ---
Documented by User: BRIGITTE Pickering 11/03/19 10:24 Date of Service Date of service: 11/03/19 Time of Service: 08:01 Assessment and Plan Assessment and plan (1) Abscess of arm, left: Status: Acute Assessment and plan: A/P: Wound vac in place. Patient pain is well controlled. Swelling is improving along with patient's range of motion and mobility in his left UE. (2) MRSA cellulitis: Status: Acute Subjective Subjective Interval history since last seen: Patient denies having any pain. He reports that he feels like he has more range of motion compared to yesterday. Denies having any fevers or chills. Exam Const General: cooperative, healthy appearing and comfortable Resp Effort & Inspection: normal respiratory effort, no audible wheezes and no cough Skin Other: Left Upper Extremity- Wound vac in place. Significant swelling throughout the L UE. Mild erythema of the forearm of the L UE. Objective Objective Clinical Data: Vital Signs Temperature 36.8 C 11/03/19 07:42 Temperature Source Tympanic 11/03/19 07:42 Pulse 59 L 11/03/19 07:42 Pulse Rhythm Regular 11/02/19 20:00 Respiratory Rate 18 11/03/19 07:42 Respiratory Effort 11/02/19 20:00 Respiratory Depth Normal 11/02/19 20:00 Respiratory Pattern Normal 11/02/19 20:00 Blood Pressure 176/91 H 11/03/19 07:42 Blood Pressure Position Sitting 10/30/19 12:50 Pulse Oximetry 95 11/03/19 07:42 Respiratory End-tidal CO2 33 10/30/19 15:45 Oxygen Delivery Method Room Air 11/03/19 07:42 Oxygen Flow Rate 0 11/03/19 07:42 Pain Level 0 11/03/19 07:42 Comment 11/01/19 07:50 Intake & Output 11/02/19 11/03/19 11/03/19 18:59 06:59 18:59 Intake Total 1040 / 1390 350 / 1390 Output Total 350 / 350 Balance 690 / 1040 350 / 1040 Intake: IV 800 / 1150 350 / 1150 Oral 240 / 240 Output: Urine 350 / 350 Other: Urine Color Dark Melita Dark Melita Urine Appearance Clear Clear Voiding Methods Urinal Toilet Urinal Laboratory Results WBC 12.52 k/cumm (4.4-10.8) H 11/02/19 03:40 RBC 4.09 m/cumm (4.50-6.00) L 11/02/19 03:40 Hgb 12.2 g/dL (13.5-17.5) L 11/02/19 03:40 Hct 35.4 % (40.0-50.0) L 11/02/19 03:40 MCV 86.6 fL (80-95) 11/02/19 03:40 MCH 29.8 pg (27.0-33.0) 11/02/19 03:40 MCHC 34.5 g/dL (32.0-36.0) 11/02/19 03:40 RDW 12.1 % (11.8-14.1) 11/02/19 03:40 Plt Count 252 x1000/uL (130-400) 11/02/19 03:40 MPV 10.8 fL (8.0-11.0) 11/02/19 03:40 Immature Gran % 0.6 % 11/01/19 06:47 Neutrophils % 81.3 11/01/19 06:47 Lymphocytes % 10.3 11/01/19 06:47 Monocytes % 7.0 11/01/19 06:47 Eosinophils % 0.7 11/01/19 06:47 Basophils % 0.1 11/01/19 06:47 Absolute Neutrophils 13.22 k/cumm (1.2-6.7) H 11/01/19 06:47 Absolute Lymphocytes 1.67 k/cumm (1.2-3.4) 11/01/19 06:47 Absolute Monocytes 1.14 k/cumm (0.11-0.7) H 11/01/19 06:47 Absolute Eosinophils 0.11 k/cumm (0.0-0.7) 11/01/19 06:47 Absolute Basophils 0.02 k/cumm (0.0-0.2) 11/01/19 06:47 Differential Comment Diff reviewed 10/31/19 06:52 RBC Morphology See below 10/31/19 06:52 Polychromasia Present 10/31/19 06:52 Anisocytosis 1+ 10/31/19 06:52 PT 11.6 sec (9.3-11.0) H 10/30/19 14:27 INR 1.2 (0.9-1.1) H 10/30/19 14:27 VBG pH 7.49 (7.35-7.45) H 10/30/19 14:27 VBG pCO2 34 mm/Hg (34-47) 10/30/19 14: VBG pO2 47 mm/Hg (28-44) H 10/30/19 14:27 VBG HCO3 26 mmol/L (22-28) 10/30/19 14:27 VBG Total CO2 23 mmol/L (22-29) 10/30/19 14:27 VBG O2 Saturation 87 % (70-80) H 10/30/19 14:27 VBG Base Excess 2.4 mmol/L (-3-3) 10/30/19 14:27 Sodium 138 mmol/L (136-145) 11/01/19 06:47 Potassium 4.0 mmol/L (3.5-5.1) 11/01/19 06:47 Chloride 104 mmol/L (98-107) 11/01/19 06:47 Carbon Dioxide 27.6 mmol/L (21.0-32.0) 11/01/19 06:47 Anion Gap 6.4 mmol/L (3-11) 11/01/19 06:47 BUN 13 mg/dL (7-18) 11/01/19 06:47 Creatinine 0.90 mg/dL (0.70-1.30) 11/01/19 06:47 Estimated GFR/1.73 m2 >= 60.00 (mL/min/1.73m2) 11/01/19 06:47 Glucose 137 mg/dL (74-106) H D 11/01/19 06:47 Hemoglobin A1c 10.4 % (3.8-5.6) H 10/30/19 14:27 Lactate Cancelled 10/30/19 13:51 Calcium 7.7 mg/dL (8.5-10.1) L 11/01/19 06:47 Magnesium 1.9 mg/dL (1.8-2.4) 11/01/19 06:47 Total Bilirubin 1.3 mg/dL (0.2-1.0) H 10/30/19 13:40 AST 19 U/L (15-37) 10/30/19 13:40 ALT 28 U/L (16-63) 10/30/19 13:40 Alkaline Phosphatase 104 U/L (46-116) 10/30/19 13:40 C-Reactive Protein 20.95 mg/dL (0.0-0.3) H 11/01/19 06:47 Total Protein 7.8 g/dL (6.4-8.2) 10/30/19 13:40 Albumin 3.5 g/dL (3.4-5.0) 10/30/19 13:40 Procalcitonin 0.5 ng/mL 10/31/19 06:52 TSH 0.63 uIU/mL (0.36-3.74) 10/31/19 06:52 Urine Color Yellow (Yellow) 10/30/19 19:04 Urine Clarity Clear (Clear) 10/30/19 19:04 Urine pH 6.0 (5-8) 10/30/19 19:04 Ur Specific [place] 1.010 (1.005-1.025) 10/30/19 19:04 Urine Protein Negative mg/dL (Negative) 10/30/19 19:04 Urine Ketones 15 mg/dL (Negative) H 10/30/19 19:04 Urine Blood Small (Negative) H 10/30/19 19:04 Urine Nitrite Negative (Negative) 10/30/19 19:04 Urine Bilirubin Negative (Negative) 10/30/19 19:04 Urine Urobilinogen 2.0 EU/dL (Up TO 0.2) H 10/30/19 19:04 Ur Leukocyte Esterase Negative (Negative) 10/30/19 19:04 Urine RBC 20-50 HPF (0-2) H 10/30/19 19:04 Urine WBC 0-2 HPF (0-5) 10/30/19 19:04 Ur Epithelial Cells Negative HPF (Negative) 10/30/19 19:04 Urine Crystals Negative HPF (Negative) 10/30/19 19:04 Urine Bacteria Negative HPF (Negative) 10/30/19 19:04 Urine Casts Negative LPF (Negative) 10/30/19 19:04 Urine Mucus Negative (Negative) 10/30/19 19:04 Urine Other Negative (Negative) 10/30/19 19:04 Ur Culture Indicated? No 10/30/19 19:04 Urine Glucose 500 mg/dL (Negative) H 10/30/19 19:04 Vancomycin Trough 8.4 ug/mL (10.0-20.0) L 11/02/19 03:40 Gram Stain Cancelled 10/30/19 14:51 Anaerobic Culture Cancelled 10/30/19 14:51 Anaerob Organism Srce Cancelled 10/30/19 14:51 Anaer Org ID Rpt Status Cancelled 10/30/19 14:51 Documented by User: Opal Mathew, 11/03/19 20:20 Assessment and Plan Assessment and plan (1) Abscess of arm, left: Status: Acute Assessment and plan: cultures reviewed new area of redness on L arm- repeat US of this area cont vanco pro-biotics. vac changed today/pt tolerated well. 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 (2) MRSA cellulitis: Status: Acute Exam Skin Other: wound post left upper arm/shoulder: 6x4cm.90% granular adn 10% slough. lizandro nicely. serous drainage- high. Vac changed today. area on trcips area increased redness/edema/pain. No definitive collective- US ordered. could just be the edema collecting in dependant area. Zosyn was stopped sunday and b/c worse on sunday afternoon. WIll resume zosyn no diarrhea. no thrush
--- NOTE | 2019-11-03 10:53 | W.DIABETESNO ---
Date of service: 11/03/19 Time of Service: 10:53 Diabetes Note NOTE: Follow up for diabetes self management support for Say Carlin. Blood sugars well managed at this time with fasting blood sugar today 125. Met with Jyotsna, his partner, reviewing Diabetes food guide, label reading, beverage choices. Reviewed [facility] Guide for diabetes care. She has my contact information for follow up. Will meet with Say to review insulin injection processes. Time Spent in Nutritional Counseling and Treatment: 15 minutes face to face
[2019-11-03 11:45] VITALS: BP 168/82; PULSE 62; RESP 18; TEMP 36.8; O2SAT 95
--- NOTE | 2019-11-03 13:06 | W.PM.PROGNOT ---
Date of Service Date of service: 11/03/19 Time of Service: 10:30 Assessment and Plan Assessment and plan (1) New onset type 2 diabetes mellitus: Status: Acute Assessment and plan: Acceptable blood sugar control. Diabetes education proceeding well. Plan on discharging on just Lantus, with adjustment in dose and possible change to either oral agent or, if inadequate control, resuming a basal bolus schedule. (2) Hypertension: Status: Chronic Assessment and plan: Blood pressure still high, has only had 1 dose of lisinopril. Follow on the present dose. Likely will need to have dose adjustment as an outpatient. (3) Abscess of left shoulder: Status: Acute Assessment and plan: Shoulder wound looks better but some continued erythema on the inner aspect the arm with some warmth and induration but no tenderness. I am doubtful there is a new abscess but it is concerning that there is still some inflammatory changes in this area. Consult with surgical team as to management options. At this point I do not think we need to expand antibiotic coverage. (4) MRSA cellulitis: Status: Acute Assessment and plan: As above, with concerns of possible involvement of the inner arm. Subjective Subjective Interval history since last seen: Feels well. Has not had any fever. No pain in the left arm with better range of motion with slightly decreased swelling. Still has redness on the inner aspect of the arm and edema of the forearm. Blood sugars in the mid 100 range over the past 24 hours. Blood pressures continue to run high. Started on lisinopril yesterday and no adverse effects thus far. Diabetes education has started. Exam Narrative Exam Narrative: Comfortable seated in chair. No fever. Blood pressures 170s over 80s to 90s. Lungs are clear. No heart murmur. He has no erythema around the wound on the posterior left shoulder but does have erythema, warmth and some induration on the upper inner aspect of his left arm. No tenderness. He has pain-free range of motion at the shoulder elbow and wrist. There is 2-3+ pitting edema of his forearm unchanged from yesterday. Good pulse at the wrist and normal light touch sensation. No swelling of his right hand or in the lower extremities. Objective Objective Clinical Data: Vital Signs Temperature 36.8 C 11/03/19 07:42 Temperature Source Tympanic 11/03/19 07:42 Pulse 59 L 11/03/19 07:42 Pulse Rhythm Regular 11/02/19 20:00 Respiratory Rate 18 11/03/19 07:42 Respiratory Effort 11/02/19 20:00 Respiratory Depth Normal 11/02/19 20:00 Respiratory Pattern Normal 11/02/19 20:00 Blood Pressure 176/91 H 11/03/19 07:42 Blood Pressure Position Sitting 10/30/19 12:50 Pulse Oximetry 95 11/03/19 07:42 Respiratory End-tidal CO2 33 10/30/19 15:45 Oxygen Delivery Method Room Air 11/03/19 07:42 Oxygen Flow Rate 0 11/03/19 07:42 Pain Level 0 11/03/19 07:42 Comment 11/01/19 07:50 Intake & Output 11/02/19 11/03/19 11/03/19 23:59 11:59 23:59 Intake Total 690 / 1240 250 / 250 Output Total 350 / 350 Balance 340 / 890 250 / 250 Intake: IV 450 / 1000 250 / 250 Oral 240 / 240 Output: Urine 350 / 350 Other: Urine Color Dark Melita Urine Appearance Clear Voiding Methods Toilet Urinal Laboratory Results WBC 12.52 k/cumm (4.4-10.8) H 11/02/19 03:40 RBC 4.09 m/cumm (4.50-6.00) L 11/02/19 03:40 Hgb 12.2 g/dL (13.5-17.5) L 11/02/19 03:40 Hct 35.4 % (40.0-50.0) L 11/02/19 03:40 MCV 86.6 fL (80-95) 11/02/19 03:40 MCH 29.8 pg (27.0-33.0) 11/02/19 03:40 MCHC 34.5 g/dL (32.0-36.0) 11/02/19 03:40 RDW 12.1 % (11.8-14.1) 11/02/19 03:40 Plt Count 252 x1000/uL (130-400) 11/02/19 03:40 MPV 10.8 fL (8.0-11.0) 11/02/19 03:40 Immature Gran % 0.6 % 11/01/19 06:47 Neutrophils % 81.3 11/01/19 06:47 Lymphocytes % 10.3 11/01/19 06:47 Monocytes % 7.0 11/01/19 06:47 Eosinophils % 0.7 11/01/19 06:47 Basophils % 0.1 11/01/19 06:47 Absolute Neutrophils 13.22 k/cumm (1.2-6.7) H 11/01/19 06:47 Absolute Lymphocytes 1.67 k/cumm (1.2-3.4) 11/01/19 06:47 Absolute Monocytes 1.14 k/cumm (0.11-0.7) H 11/01/19 06:47 Absolute Eosinophils 0.11 k/cumm (0.0-0.7) 11/01/19 06:47 Absolute Basophils 0.02 k/cumm (0.0-0.2) 11/01/19 06:47 Differential Comment Diff reviewed 10/31/19 06:52 RBC Morphology See below 10/31/19 06:52 Polychromasia Present 10/31/19 06:52 Anisocytosis 1+ 10/31/19 06:52 PT 11.6 sec (9.3-11.0) H 10/30/19 14:27 INR 1.2 (0.9-1.1) H 10/30/19 14:27 VBG pH 7.49 (7.35-7.45) H 10/30/19 14:27 VBG pCO2 34 mm/Hg (34-47) 10/30/19 14:27 VBG pO2 47 mm/Hg (28-44) H 10/30/19 14:27 VBG HCO3 26 mmol/L (22-28) 10/30/19 14:27 VBG Total CO2 23 mmol/L (22-29) 10/30/19 14:27 VBG O2 Saturation 87 % (70-80) H 10/30/19 14:27 VBG Base Excess 2.4 mmol/L (-3-3) 10/30/19 14:27 Sodium 138 mmol/L (136-145) 11/01/19 06:47 Potassium 4.0 mmol/L (3.5-5.1) 11/01/19 06:47 Chloride 104 mmol/L (98-107) 11/01/19 06:47 Carbon Dioxide 27.6 mmol/L (21.0-32.0) 11/01/19 06:47 Anion Gap 6.4 mmol/L (3-11) 11/01/19 06:47 BUN 13 mg/dL (7-18) 11/01/19 06:47 Creatinine 0.90 mg/dL (0.70-1.30) 11/01/19 06:47 Estimated GFR/1.73 m2 >= 60.00 (mL/min/1.73m2) 11/01/19 06:47 Glucose 137 mg/dL (74-106) H D 11/01/19 06:47 Hemoglobin A1c 10.4 % (3.8-5.6) H 10/30/19 14:27 Lactate Cancelled 10/30/19 13:51 Calcium 7.7 mg/dL (8.5-10.1) L 11/01/19 06:47 Magnesium 1.9 mg/dL (1.8-2.4) 11/01/19 06:47 Total Bilirubin 1.3 mg/dL (0.2-1.0) H 10/30/19 13:40 AST 19 U/L (15-37) 10/30/19 13:40 ALT 28 U/L (16-63) 10/30/19 13:40 Alkaline Phosphatase 104 U/L (46-116) 10/30/19 13:40 C-Reactive Protein 20.95 mg/dL (0.0-0.3) H 11/01/19 06:47 Total Protein 7.8 g/dL (6.4-8.2) 10/30/19 13:40 Albumin 3.5 g/dL (3.4-5.0) 10/30/19 13:40 Procalcitonin 0.5 ng/mL 10/31/19 06:52 TSH 0.63 uIU/mL (0.36-3.74) 10/31/19 06:52 Urine Color Yellow (Yellow) 10/30/19 19:04 Urine Clarity Clear (Clear) 10/30/19 19:04 Urine pH 6.0 (5-8) 10/30/19 19:04 Ur Specific [place] 1.010 (1.005-1.025) 10/30/19 19:04 Urine Protein Negative mg/dL (Negative) 10/30/19 19:04 Urine Ketones 15 mg/dL (Negative) H 10/30/19 19:04 Urine Blood Small (Negative) H 10/30/19 19:04 Urine Nitrite Negative (Negative) 10/30/19 19:04 Urine Bilirubin Negative (Negative) 10/30/19 19:04 Urine Urobilinogen 2.0 EU/dL (Up TO 0.2) H 10/30/19 19:04 Ur Leukocyte Esterase Negative (Negative) 10/30/19 19:04 Urine RBC 20-50 HPF (0-2) H 10/30/19 19:04 Urine WBC 0-2 HPF (0-5) 10/30/19 19:04 Ur Epithelial Cells Negative HPF (Negative) 10/30/19 19:04 Urine Crystals Negative HPF (Negative) 10/30/19 19:04 Urine Bacteria Negative HPF (Negative) 10/30/19 19:04 Urine Casts Negative LPF (Negative) 10/30/19 19:04 Urine Mucus Negative (Negative) 10/30/19 19:04 Urine Other Negative (Negative) 10/30/19 19:04 Ur Culture Indicated? No 10/30/19 19:04 Urine Glucose 500 mg/dL (Negative) H 10/30/19 19:04 Vancomycin Trough 8.4 ug/mL (10.0-20.0) L 11/02/19 03:40 Gram Stain Cancelled 10/30/19 14:51 Anaerobic Culture Cancelled 10/30/19 14:51 Anaerob Organism Srce Cancelled 10/30/19 14:51 Anaer Org ID Rpt Status Cancelled 10/30/19 14:51
--- NOTE | 2019-11-03 14:27 | CHAPLAIN ---
Say showed me his elbow, and said it is getting better. His girlfriend has been in to visit, and he was talking with his son on the phone when I walked in. Say said he's not from around here originally, but has lived in [place] for more than 30 years. He seems to be comfortable being here.
--- NOTE | 2019-11-03 14:41 | PT.INTREAT ---
Date of service: 11/03/19 Time of Service: 14:41 PT Notes Visit Reasons: ABSCESS LEFT ARM, NEW ONSET DIABETES 11/03/2019 SUBJECTIVE: Pt stating he is doing well. He is independent with all activities at home including driving. He notes his arm is less swollen and has less discomfort. He is unsure if he will be going home today or not. OBJECTIVE: Seated in his chair. Agreeable to PT treatment. Pt receives AAROM to the left GH joint, elbow, wrist and forearm all planes of motion, pain free. This was followed by instruction in active shoulder flexion, active elbow and wrist ROM activities. Pt will complete these hourly throughout the day and we will check in with him tomorrow. Direct time: 15 minutes [id number] [address]ju[address]wood, [employer]
--- NOTE | 2019-11-03 15:23 | CMPROGNOTE_ITS ---
- If Service Date Differs Date of service: 11/03/19 Time of Service: 15:23 Care Management Progress Note S/O: Say was sitting up in his chair when CM met with him. Say and CM discussed the wound vac that he has, and the home wound vac that has been ordered for him to use upon discharge. CM asked if Say would be agreeable to HH RN for his wound vac dressing changes, which he agreed to. He stated that he will not be working while he was healing with the wound vac in place. He does have a CE course for his [employer] license that he plans to attend. He had questions regarding the care of his wound, which CM referred to the hand cigar making supervisor to attend to prior to discharge. A: 69 year old male admitted to [facility] 10/30/19 for Left arm abscess, new onset diabetes P: Say will return home when medically cleared with new orders for VNA RN to manage dressing changes and provide diabetic education- he will require wound vac upon discharge. He will follow up with his PCP, and plan of care as prescribed. CM will continue to follow.
[2019-11-03] MEDS: PIPERACILLIN/TAZO 4.5 GM in Normal Saline 100 ML IVPB (16:34)
[2019-11-03 19:00] VITALS: BP 180/94; PULSE 69; RESP 18; TEMP 36.7; O2SAT 96
[2019-11-03] MEDS: Insulin Glargine 300 UNITS/3 ML PEN 10 UNITS SC (22:15)
[2019-11-03 23:59] VITALS: BP 174/94; PULSE 75; RESP 19; TEMP 36.7; O2SAT 98
[2019-11-04] VITALS (7 sets, daily range): BP systolic 156–183; BP diastolic 78–101; PULSE 62–81; RESP 18–19; TEMP 36–36.9; O2SAT 95–97
[2019-11-04] MEDS: Normal Saline Flush 10 ML SYR IVP ×4 (00:49→10:50)
[2019-11-04] MEDS: PIPERACILLIN/TAZO 4.5 GM in Normal Saline 100 ML IVPB ×2 (00:49→08:15)
[2019-11-04] MEDS: Ketorolac 15 MG/ML VIAL IVP ×2 (07:01→15:01)
[2019-11-04 07:03] LABS: CREATININE 0.83 mg/dL (0.70-1.30); Vancomycin, Trough 15.2 ug/mL (10.0-20.0)
[2019-11-04] MEDS: Insulin Aspart 300 UNITS/3 ML PEN SC ×5 (08:11→21:31)
[2019-11-04] MEDS: Lactobacillus Acidophilus CAP 1 CAP PO ×2 (08:12→20:08)
[2019-11-04] MEDS: Lisinopril 5 MG TAB PO ×2 (08:13→12:23)
[2019-11-04] MEDS: Enoxaparin 40 MG/0.4 ML SYR SC (08:13)
[2019-11-04] MEDS: Ketoconazole 2% CREAM 15 GM TUBE TP (08:15)
[2019-11-04 09:32] LABS: Abs Immature Grans 0.14 k/cumm (0.0-0.09); Absolute Basophil Count 0.02 k/cumm (0.0-0.2); Absolute Eosinophil Count 0.16 k/cumm (0.0-0.7); Absolute Lymphocyte Count 1.77 k/cumm (1.2-3.4); Absolute Monocyte Count 0.71 k/cumm (0.11-0.7); Absolute Neutrophil Count 5.31 k/cumm (1.2-6.7); Basophils % 0.2; HGB 12.5 g/dL (13.5-17.5); Immature Grans % 1.7 %; Lymphocytes % 21.8; Mean Corp. HGB Concentration 33.8 g/dL (32.0-36.0); Mean Corpuscular Hemoglobin 29.4 pg (27.0-33.0); Mean Corpuscular Volume 87.1 fL (80-95); Mean Platelet Volume 10.7 fL (8.0-11.0); Monocytes % 8.8; Neutrophils % 65.5; Platelet Count 282 x1000/uL (130-400); RBC 4.25 m/cumm (4.50-6.00); RBC Distribution Width 12.4 % (11.8-14.1); White Blood Cell Count 8.11 k/cumm (4.4-10.8)
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
--- NOTE | 2019-11-04 12:06 | W.PM.PROGNOT ---
Date of Service Date of service: 11/04/19 Time of Service: 12:06 Assessment and Plan Assessment and plan (1) MRSA cellulitis: Status: Acute Assessment and plan: Continue vancomycin. Treatment being directed by surgical service. (2) Abscess of arm, left: Status: Acute Assessment and plan: Ultrasound of the left upper arm demonstrated a distinct fluid collection of 4.6 cm. I will defer to surgery's decision regarding incision and drainage of this fluid but I suspect this will need to be drained to rule out an abscess. (3) Hypertension: Status: Chronic Assessment and plan: Continue lisinopril at increased dose of 10 mg daily. Monitor blood pressure over the next couple days. Qualifiers: Hypertension type: essential hypertension Qualified Code(s): I10 - Essential (primary) hypertension (4) New onset type 2 diabetes mellitus: Status: Acute Assessment and plan: Start long-acting metformin in addition to Lantus and discontinue scheduled doses of mealtime NovoLog. Subjective Subjective Interval history since last seen: Patient continues to receive treatment for left shoulder abscess. He is currently on Zosyn and vancomycin for an MRSA infection. He has a left humerus over the inner aspect has an area of edema that on ultrasound confirmed a fluid collection 4.6 x 0.7 x 2.2 cm collection of fluid in the subcutaneous tissues. Reportedly there is no encapsulation. I told the patient the result of his ultrasound and told him and his family that I would defer to the surgeons decision about drainage of this fluid. Overall the patient has had a improvement in his pain as well as his range of motion his left shoulder. His leukocytosis has resolved and he remains afebrile. Blood glucose is coming under better control. This morning his fasting glucose was 156 and at lunchtime it is now 98. He is currently receiving Lantus 10 units at night as well as 5 units of NovoLog with each meal. I am going to transition him over to a combination of metformin and Lantus and discontinue his mealtime NovoLog. As far as his blood pressure control is systolic blood pressures ranging in the 160-170 range. He was started on lisinopril 5 mg daily. I will increase the dose to 10 mg. Exam Narrative Exam Narrative: Left shoulder has a wound VAC in place. He has fairly good range of motion of the left shoulder. He is able to abduct and circumduct the left shoulder. Inner aspect of left humerus has area of redness and induration but it is nontender. There is increased warmth over this area. Objective Objective Clinical Data: Abnormal lab results 11/04/19 Range/Units 05:55 RBC 4.25 L (4.50-6.00) m/cumm Hgb 12.5 L (13.5-17.5) g/dL Hct 37.0 L (40.0-50.0) % Absolute Monocytes 0.71 H (0.11-0.7) k/cumm Vital Signs Temperature 36.0 C L 11/04/19 11:01 Temperature Source Tympanic 11/04/19 11:01 Pulse 62 11/04/19 11:01 Pulse Rhythm Regular 11/04/19 09:30 Respiratory Rate 19 11/04/19 11:01 Respiratory Effort Non-Labored 11/04/19 09:30 Respiratory Depth Normal 11/04/19 09:30 Respiratory Pattern Normal 11/04/19 09:30 Blood Pressure 168/89 H 11/04/19 11:01 Blood Pressure Position Sitting 10/30/19 12:50 Pulse Oximetry 97 11/04/19 11:01 Respiratory End-tidal CO2 33 10/30/19 15:45 Oxygen Delivery Method Room Air 11/04/19 11:01 Oxygen Flow Rate 0 11/04/19 11:01 Pain Level 0 11/04/19 11:01 Comment 11/01/19 07:50 Intake & Output 11/03/19 11/04/19 11/04/19 23:59 11:59 23:59 Intake Total 600 / 1440 250 / 250 Balance 600 / 1440 250 / 250 Intake: IV 360 / 960 100 / 100 Oral 240 / 480 150 / 150 Other: Urine Appearance Clear Clear Laboratory Results WBC 8.11 k/cumm (4.4-10.8) 11/04/19 05:55 RBC 4.25 m/cumm (4.50-6.00) L 11/04/19 05:55 Hgb 12.5 g/dL (13.5-17.5) L 11/04/19 05:55 Hct 37.0 % (40.0-50.0) L 11/04/19 05:55 MCV 87.1 fL (80-95) 11/04/19 05:55 MCH 29.4 pg (27.0-33.0) 11/04/19 05:55 MCHC 33.8 g/dL (32.0-36.0) 11/04/19 05:55 RDW 12.4 % (11.8-14.1) 11/04/19 05:55 Plt Count 282 x1000/uL (130-400) 11/04/19 05:55 MPV 10.7 fL (8.0-11.0) 11/04/19 05:55 Immature Gran % 1.7 % 11/04/19 05:55 Neutrophils % 65.5 11/04/19 05:55 Lymphocytes % 21.8 11/04/19 05:55 Monocytes % 8.8 11/04/19 05:55 Eosinophils % 2.0 11/04/19 05:55 Basophils % 0.2 11/04/19 05:55 Absolute Neutrophils 5.31 k/cumm (1.2-6.7) 11/04/19 05:55 Absolute Lymphocytes 1.77 k/cumm (1.2-3.4) 11/04/19 05:55 Absolute Monocytes 0.71 k/cumm (0.11-0.7) H 11/04/19 05:55 Absolute Eosinophils 0.16 k/cumm (0.0-0.7) 11/04/19 05:55 Absolute Basophils 0.02 k/cumm (0.0-0.2) 11/04/19 05:55 Differential Comment Diff reviewed 10/31/19 06:52 RBC Morphology See below 10/31/19 06:52 Polychromasia Present 10/31/19 06:52 Anisocytosis 1+ 10/31/19 06:52 PT 11.6 sec (9.3-11.0) H 10/30/19 14:27 INR 1.2 (0.9-1.1) H 10/30/19 14:27 VBG pH 7.49 (7.35-7.45) H 10/30/19 14:27 VBG pCO2 34 mm/Hg (34-47) 10/30/19 14:27 VBG pO2 47 mm/Hg (28-44) H 10/30/19 14:27 VBG HCO3 26 mmol/L (22-28) 10/30/19 14:27 VBG Total CO2 23 mmol/L (22-29) 10/30/19 14:27 VBG O2 Saturation 87 % (70-80) H 10/30/19 14:27 VBG Base Excess 2.4 mmol/L (-3-3) 10/30/19 14:27 Sodium 138 mmol/L (136-145) 11/01/19 06:47 Potassium 4.0 mmol/L (3.5-5.1) 11/01/19 06:47 Chloride 104 mmol/L (98-107) 11/01/19 06:47 Carbon Dioxide 27.6 mmol/L (21.0-32.0) 11/01/19 06:47 Anion Gap 6.4 mmol/L (3-11) 11/01/19 06:47 BUN 13 mg/dL (7-18) 11/01/19 06:47 Creatinine 0.83 mg/dL (0.70-1.30) 11/04/19 05:55 Estimated GFR/1.73 m2 >= 60.00 (mL/min/1.73m2) 11/04/19 05:55 Glucose 137 mg/dL (74-106) H D 11/01/19 06:47 Hemoglobin A1c 10.4 % (3.8-5.6) H 10/30/19 14:27 Lactate Cancelled 10/30/19 13:51 Calcium 7.7 mg/dL (8.5-10.1) L 11/01/19 06:47 Magnesium 1.9 mg/dL (1.8-2.4) 11/01/19 06:47 Total Bilirubin 1.3 mg/dL (0.2-1.0) H 10/30/19 13:40 AST 19 U/L (15-37) 10/30/19 13:40 ALT 28 U/L (16-63) 10/30/19 13:40 Alkaline Phosphatase 104 U/L (46-116) 10/30/19 13:40 C-Reactive Protein 20.95 mg/dL (0.0-0.3) H 11/01/19 06:47 Total Protein 7.8 g/dL (6.4-8.2) 10/30/19 13:40 Albumin 3.5 g/dL (3.4-5.0) 10/30/19 13:40 Procalcitonin 0.5 ng/mL 10/31/19 06:52 TSH 0.63 uIU/mL (0.36-3.74) 10/31/19 06:52 Urine Color Yellow (Yellow) 10/30/19 19:04 Urine Clarity Clear (Clear) 10/30/19 19:04 Urine pH 6.0 (5-8) 10/30/19 19:04 Ur Specific [place] 1.010 (1.005-1.025) 10/30/19 19:04 Urine Protein Negative mg/dL (Negative) 10/30/19 19:04 Urine Ketones 15 mg/dL (Negative) H 10/30/19 19:04 Urine Blood Small (Negative) H 10/30/19 19:04 Urine Nitrite Negative (Negative) 10/30/19 19:04 Urine Bilirubin Negative (Negative) 10/30/19 19:04 Urine Urobilinogen 2.0 EU/dL (Up TO 0.2) H 10/30/19 19:04 Ur Leukocyte Esterase Negative (Negative) 10/30/19 19:04 Urine RBC 20-50 HPF (0-2) H 10/30/19 19:04 Urine WBC 0-2 HPF (0-5) 10/30/19 19:04 Ur Epithelial Cells Negative HPF (Negative) 10/30/19 19:04 Urine Crystals Negative HPF (Negative) 10/30/19 19:04 Urine Bacteria Negative HPF (Negative) 10/30/19 19:04 Urine Casts Negative LPF (Negative) 10/30/19 19:04 Urine Mucus Negative (Negative) 10/30/19 19:04 Urine Other Negative (Negative) 10/30/19 19:04 Ur Culture Indicated? No 10/30/19 19:04 Urine Glucose 500 mg/dL (Negative) H 10/30/19 19:04 Vancomycin Trough 15.2 ug/mL (10.0-20.0) 11/04/19 05:55 Gram Stain Cancelled 10/30/19 14:51 Anaerobic Culture Cancelled 10/30/19 14:51 Anaerob Organism Srce Cancelled 10/30/19 14:51 Anaer Org ID Rpt Status Cancelled 10/30/19 14:51
--- NOTE | 2019-11-04 13:33 | W.PM.PROGNOT ---
Date of Service Date of service: 11/04/19 Time of Service: 13:00 Assessment and Plan Assessment and plan (1) MRSA cellulitis: Status: Acute Assessment and plan: A\\ 69 year old male with left shoulder/upper arm cellulites/abscess. He is s/p Incision and drainage. Has wound vac in place Has a second area that was erythematous. Erythema has decreased. ? why he has 2 abscesses P\\ Switch to Linezolid po BID which should cover the MRSA If dependant area of redness worsens may need to have a needle placed into the fluid collection to make sure its not also an abscess ECHO scheduled for tomorrow just to make sure he doesn't have vegetations Tomorrow wound vac to be changed to his home KCI vac Hopefully home tomorrow (2) Abscess of arm, left: Status: Acute (3) Hypertension: Status: Chronic Assessment and plan: A\\ Appreciate Dr. Smith assisting with HTN control Will monitor for increase with the Linezolid Qualifiers: Hypertension type: essential hypertension Qualified Code(s): I10 - Essential (primary) hypertension (4) New onset type 2 diabetes mellitus: Status: Acute Assessment and plan: A\\ Appreciate Dr. Smith assisting with management Subjective Subjective Interval history since last seen: Mr. Carlin is feeling well. His KCI wound vac has arrived. He feels the redness in his left arm is better then yesterday. He also states that he feels he has better range of motion. Exam Const General: cooperative, comfortable and no acute distress Orientation: alert and oriented x3 HENMT Head: normocephalic and atraumatic Resp Effort & Inspection: normal respiratory effort Auscultation: clear to auscultation bilaterally Cardio Rate: regular rate Rhythm: regular rhythm Heart Sounds: no gallops, no murmurs and no rubs Extrem Shoulder/upper arm images: 1. Abscess with wound vac in place 2. dependent erythema ? 2nd abscess Other: Left shoulder/upper arm- wound vac in place. No erythema noted. Left upper arm- over the triceps- there is mild erythema, much improved from yesterday. Still some induration US reviewed. There is a small fluid collection in the soft tissue. Doesn't look like an abscess. Objective Objective Clinical Data: Abnormal lab results 11/04/19 Range/Units 05:55 RBC 4.25 L (4.50-6.00) m/cumm Hgb 12.5 L (13.5-17.5) g/dL Hct 37.0 L (40.0-50.0) % Absolute Monocytes 0.71 H (0.11-0.7) k/cumm Vital Signs Temperature 96.8 F L 11/04/19 11:01 Temperature Source Tympanic 11/04/19 11:01 Pulse 62 11/04/19 11:01 Pulse Rhythm Regular 11/04/19 09:30 Respiratory Rate 19 11/04/19 11:01 Respiratory Effort Non-Labored 11/04/19 09:30 Respiratory Depth Normal 11/04/19 09:30 Respiratory Pattern Normal 11/04/19 09:30 Blood Pressure 168/89 H 11/04/19 11:01 Blood Pressure Position Sitting 10/30/19 12:50 Pulse Oximetry 97 11/04/19 11:01 Respiratory End-tidal CO2 33 10/30/19 15:45 Oxygen Delivery Method Room Air 11/04/19 11:01 Oxygen Flow Rate 0 11/04/19 11:01 Pain Level 0 11/04/19 11:01 Comment 11/01/19 07:50 Intake & Output 11/03/19 11/04/19 11/04/19 23:59 11:59 23:59 Intake Total 600 / 1440 250 / 250 Balance 600 / 1440 250 / 250 Intake: IV 360 / 960 100 / 100 Oral 240 / 480 150 / 150 Other: Urine Appearance Clear Clear Laboratory Results WBC 8.11 k/cumm (4.4-10.8) 11/04/19 05:55 RBC 4.25 m/cumm (4.50-6.00) L 11/04/19 05:55 Hgb 12.5 g/dL (13.5-17.5) L 11/04/19 05:55 Hct 37.0 % (40.0-50.0) L 11/04/19 05:55 MCV 87.1 fL (80-95) 11/04/19 05:55 MCH 29.4 pg (27.0-33.0) 11/04/19 05:55 MCHC 33.8 g/dL (32.0-36.0) 11/04/19 05:55 RDW 12.4 % (11.8-14.1) 11/04/19 05:55 Plt Count 282 x1000/uL (130-400) 11/04/19 05:55 MPV 10.7 fL (8.0-11.0) 11/04/19 05:55 Immature Gran % 1.7 % 11/04/19 05:55 Neutrophils % 65.5 11/04/19 05:55 Lymphocytes % 21.8 11/04/19 05:55 Monocytes % 8.8 11/04/19 05:55 Eosinophils % 2.0 11/04/19 05:55 Basophils % 0.2 11/04/19 05:55 Absolute Neutrophils 5.31 k/cumm (1.2-6.7) 11/04/19 05:55 Absolute Lymphocytes 1.77 k/cumm (1.2-3.4) 11/04/19 05:55 Absolute Monocytes 0.71 k/cumm (0.11-0.7) H 11/04/19 05:55 Absolute Eosinophils 0.16 k/cumm (0.0-0.7) 11/04/19 05:55 Absolute Basophils 0.02 k/cumm (0.0-0.2) 11/04/19 05:55 Differential Comment Diff reviewed 10/31/19 06:52 RBC Morphology See below 10/31/19 06:52 Polychromasia Present 10/31/19 06:52 Anisocytosis 1+ 10/31/19 06:52 PT 11.6 sec (9.3-11.0) H 10/30/19 14:27 INR 1.2 (0.9-1.1) H 10/30/19 14:27 VBG pH 7.49 (7.35-7.45) H 10/30/19 14:27 VBG pCO2 34 mm/Hg (34-47) 10/30/19 14:27 VBG pO2 47 mm/Hg (28-44) H 10/30/19 14:27 VBG HCO3 26 mmol/L (22-28) 10/30/19 14:27 VBG Total CO2 23 mmol/L (22-29) 10/30/19 14:27 VBG O2 Saturation 87 % (70-80) H 10/30/19 14:27 VBG Base Excess 2.4 mmol/L (-3-3) 10/30/19 14:27 Sodium 138 mmol/L (136-145) 11/01/19 06:47 Potassium 4.0 mmol/L (3.5-5.1) 11/01/19 06:47 Chloride 104 mmol/L (98-107) 11/01/19 06:47 Carbon Dioxide 27.6 mmol/L (21.0-32.0) 11/01/19 06:47 Anion Gap 6.4 mmol/L (3-11) 11/01/19 06:47 BUN 13 mg/dL (7-18) 11/01/19 06:47 Creatinine 0.83 mg/dL (0.70-1.30) 11/04/19 05:55 Estimated GFR/1.73 m2 >= 60.00 (mL/min/1.73m2) 11/04/19 05:55 Glucose 137 mg/dL (74-106) H D 11/01/19 06:47 Hemoglobin A1c 10.4 % (3.8-5.6) H 10/30/19 14:27 Lactate Cancelled 10/30/19 13:51 Calcium 7.7 mg/dL (8.5-10.1) L 11/01/19 06:47 Magnesium 1.9 mg/dL (1.8-2.4) 11/01/19 06:47 Total Bilirubin 1.3 mg/dL (0.2-1.0) H 10/30/19 13:40 AST 19 U/L (15-37) 10/30/19 13:40 ALT 28 U/L (16-63) 10/30/19 13:40 Alkaline Phosphatase 104 U/L (46-116) 10/30/19 13:40 C-Reactive Protein 20.95 mg/dL (0.0-0.3) H 11/01/19 06:47 Total Protein 7.8 g/dL (6.4-8.2) 10/30/19 13:40 Albumin 3.5 g/dL (3.4-5.0) 10/30/19 13:40 Procalcitonin 0.5 ng/mL 10/31/19 06:52 TSH 0.63 uIU/mL (0.36-3.74) 10/31/19 06:52 Urine Color Yellow (Yellow) 10/30/19 19:04 Urine Clarity Clear (Clear) 10/30/19 19:04 Urine pH 6.0 (5-8) 10/30/19 19:04 Ur Specific [place] 1.010 (1.005-1.025) 10/30/19 19:04 Urine Protein Negative mg/dL (Negative) 10/30/19 19:04 Urine Ketones 15 mg/dL (Negative) H 10/30/19 19:04 Urine Blood Small (Negative) H 10/30/19 19:04 Urine Nitrite Negative (Negative) 10/30/19 19:04 Urine Bilirubin Negative (Negative) 10/30/19 19:04 Urine Urobilinogen 2.0 EU/dL (Up TO 0.2) H 10/30/19 19:04 Ur Leukocyte Esterase Negative (Negative) 10/30/19 19:04 Urine RBC 20-50 HPF (0-2) H 10/30/19 19:04 Urine WBC 0-2 HPF (0-5) 10/30/19 19:04 Ur Epithelial Cells Negative HPF (Negative) 10/30/19 19:04 Urine Crystals Negative HPF (Negative) 10/30/19 19:04 Urine Bacteria Negative HPF (Negative) 10/30/19 19:04 Urine Casts Negative LPF (Negative) 10/30/19 19:04 Urine Mucus Negative (Negative) 10/30/19 19:04 Urine Other Negative (Negative) 10/30/19 19:04 Ur Culture Indicated? No 10/30/19 19:04 Urine Glucose 500 mg/dL (Negative) H 10/30/19 19:04 Vancomycin Trough 15.2 ug/mL (10.0-20.0) 11/04/19 05:55 Gram Stain Cancelled 10/30/19 14:51 Anaerobic Culture Cancelled 10/30/19 14:51 Anaerob Organism Srce Cancelled 10/30/19 14:51 Anaer Org ID Rpt Status Cancelled 10/30/19 14:51
--- NOTE | 2019-11-04 13:46 | W.DIABETESNO ---
Date of service: 11/04/19 Time of Service: 13:47 Diabetes Note NOTE: Follow up visit with Say and his support person. Say has made changes to his food choices by increasing vegetables and decreasing breads. Answered their nutrition and food questions. Yesterday we reviewed insulin injection protocol and he was able to return demonstration using insulin pen and needle. He is given written material re: needle disposal, injection sites, hypoglycemia symptoms and treatment per protocol. Reviewed blood sugar monitoring procedure and he voices confidence he can do this at home without difficulty. PLAN: THey have our contact information to be in touch with questions. Time Spent in Nutritional Counseling and Treatment: 25 minutes over 2 days
--- NOTE | 2019-11-04 13:51 | PDOC.HHF2F_ITS ---
Home Health Certification Home Health Certification: 1. Encounter Date and Reason I certify that ALEXIS BEY was seen by Marli Cool MD on 11/04/19 and that I had a [id number] encounter with this patient that meets the physician face to face encounter requirements. 2. Clinical Findings Supporting Skilled Need and Homebound Status I certify that home health services are medically necessary, include either intermittent long term and/or physical/speech therapy, and that this patie nt is homebound in that absences from the home require considerable and taxing effort and are infrequent or of short duration, or are attributable to the need to receive medical care. [X] (a) Attached documentation from encounter provides clinical findings supporting skilled need and homebound status (including what assistance patient requires to leave the home). The encounter with the patient was in whole, or in part, for the following medical condition, which is the primary reason for home health care: ABSCESS LEFT ARM, NEW ONSET DIABETES. Request assitance with wound vac changes MWF. May applied wet to dry dressings if wound vac malfunctions. Please let MD know if that happens. (Dr. Mathew) Senior Care: Needed to monitor wound for signs of infection, provide wound care Physical Therapy: Speech Therapy: Homebound: Leaving home is medically contraindicated due to high risk of infection 3. Certification and Authentication I certify that I composed the above information based on my clinical judgement relating to this patient's medical condition and, if applicable, clinical findings communicated to me by the NPP or inpatient physician who performed the Home Health Referral. All further orders will be obtained through Dr. Opal Mathew (Community Based Physician - PCP)
--- NOTE | 2019-11-04 16:11 | CMPROGNOTE_ITS ---
- If Service Date Differs Date of service: 11/04/19 Time of Service: 16:11 Care Management Progress Note S/O: Say was sitting up in bed when CM visited, his s/o was also in the room. Say had some concerns and asked for information to provide to his employer regarding MRSA. CM provided information and education, as requested. CM discussed Say's plan of care, including the possibility of IV abx at home vs infusion room. Per provider, he will be changed to PO abx today, and if he tolerates it well he will be discharged with PO abx. CM will continue to follow. A: 69 year old male admitted to [facility] 10/30/19 for Left arm abscess, new onset diabetes P: Say will return home when medically cleared with new orders for VNA RN to manage dressing changes and provide diabetic education- he will require wound vac upon discharge. He will follow up with his PCP, and plan of care as prescribed. CM will continue to follow.
[2019-11-04] MEDS: metFORMIN C.R. 500 MG TABCR PO (17:08)
[2019-11-04] MEDS: Linezolid 600 MG TAB PO (20:08)
[2019-11-04] MEDS: Insulin Glargine 300 UNITS/3 ML PEN 10 UNITS SC (21:32)
[2019-11-05 04:20] VITALS: BP 165/96; PULSE 56; RESP 19; TEMP 36.8; O2SAT 96
[2019-11-05 07:42] VITALS: BP 150/76; PULSE 70; RESP 19; TEMP 36.4; O2SAT 96
[2019-11-05] MEDS: Lactobacillus Acidophilus CAP 1 CAP PO (08:39)
[2019-11-05] MEDS: Linezolid 600 MG TAB PO (08:39)
[2019-11-05] MEDS: Lisinopril 10 MG TAB PO (08:39)
[2019-11-05] MEDS: Ketoconazole 2% CREAM 15 GM TUBE TP (08:40)
[2019-11-05] MEDS: Enoxaparin 40 MG/0.4 ML SYR SC (08:40)
[2019-11-05] MEDS: Insulin Aspart 300 UNITS/3 ML PEN SC ×3 (08:40→16:51)
[2019-11-05 12:00] VITALS: BP 148/78; PULSE 71; RESP 18; TEMP 36.7; O2SAT 96
--- NOTE | 2019-11-05 13:56 | PGE_ITS ---
Date of Service Date of service: 11/05/19 Time of Service: 13:56 Assessment and Plan Assessment and plan (1) MRSA cellulitis: Status: Acute Assessment and plan: antibiotic treatment per surgery (2) Abscess of arm, left: Status: Acute Assessment and plan: as above (3) Hypertension: Status: Chronic Assessment and plan: discharge home on lisinopril 10 mg daily. An Rx was sent to [facility] in [place] Qualifiers: Hypertension type: essential hypertension Qualified Code(s): I10 - Essential (primary) hypertension (4) New onset type 2 diabetes mellitus: Status: Acute Assessment and plan: discharge home on lantus 10 units nightly and metformin XR 1000 mg daily. Subjective Subjective Interval history since last seen: Patient states that his shoulder is feeling better. Improved ROM. No pain. The area of induration and erythema under his left arm at the medial humerus has also improved. He would like to go home and according to Dr. Mathew she is going to discharge him today. His picked up diabetic glucose meter and supplies from an Rx that was given to her by Dr. Edmond. I told them that I will be prescribing metformin XR 1000 mg once per day along w/ Lantus 10 units nightly. He will also continue on lisinopril 10 mg daily. His BP has been gradually coming under control. It is 148/78 this a.m. His glucose is less than ideal at fasting of 184 and lunch glucose is 223, however I just started him on the metformin XR at 500 mg yesterday. I anticipate he will need the higher dose of 1000 mg daily. He hopes to get off insulin and just take oral meds. I told him that it is important that he keep a followup with a PCP. He has not seen Dr. Saab in over 15 yrs. He intends to follow up at [facility]. Exam Narrative Exam Narrative: Good ROM of his left shoulder. No induration or erythema around wound. Wound vac is in place. The area of induration and erythema under his left humerus on the medial side is softer and non-tender and the erythema is fading. Objective Objective Clinical Data: Vital Signs Temperature 36.7 C 11/05/19 12:00 Temperature Source Tympanic 11/05/19 12:00 Pulse 71 11/05/19 12:00 Pulse Rhythm Regular 11/05/19 07:42 Respiratory Rate 18 03/11/20 12:00 Respiratory Effort Non-Labored 11/05/19 07:42 Respiratory Depth Normal 11/05/19 07:42 Respiratory Pattern Normal 11/05/19 07:42 Blood Pressure 148/78 H 11/05/19 12:00 Blood Pressure Position Sitting 10/30/19 12:50 Pulse Oximetry 96 11/05/19 12:00 Respiratory End-tidal CO2 33 10/30/19 15:45 Oxygen Delivery Method Room Air 11/05/19 12:00 Oxygen Flow Rate 0 11/05/19 12:00 Pain Level 0 11/05/19 12:00 Comment 11/05/19 07:42 Intake & Output 11/04/19 11/05/19 11/05/19 23:59 11:59 23:59 Intake Total 830 / 1080 150 / 150 Output Total 500 / 500 675 / 675 Balance 330 / 580 -525 / -525 Intake: IV 350 / 450 Oral 480 / 630 150 / 150 Output: Urine 500 / 500 675 / 675 Other: Urine Color Yellow Yellow Urine Appearance Clear Clear Urine Odor None Normal Voiding Methods Urinal Urinal Laboratory Results WBC 8.11 k/cumm (4.4-10.8) 11/04/19 05:55 RBC 4.25 m/cumm (4.50-6.00) L 11/04/19 05:55 Hgb 12.5 g/dL (13.5-17.5) L 11/04/19 05:55 Hct 37.0 % (40.0-50.0) L 11/04/19 05:55 MCV 87.1 fL (80-95) 11/04/19 05:55 MCH 29.4 pg (27.0-33.0) 11/04/19 05:55 MCHC 33.8 g/dL (32.0-36.0) 11/04/19 05:55 RDW 12.4 % (11.8-14.1) 11/04/19 05:55 Plt Count 282 x1000/uL (130-400) 11/04/19 05:55 MPV 10.7 fL (8.0-11.0) 11/04/19 05:55 Immature Gran % 1.7 % 11/04/19 05:55 Neutrophils % 65.5 11/04/19 05:55 Lymphocytes % 21.8 11/04/19 05:55 Monocytes % 8.8 11/04/19 05:55 Eosinophils % 2.0 11/04/19 05:55 Basophils % 0.2 11/04/19 05:55 Absolute Neutrophils 5.31 k/cumm (1.2-6.7) 11/04/19 05:55 Absolute Lymphocytes 1.77 k/cumm (1.2-3.4) 11/04/19 05:55 Absolute Monocytes 0.71 k/cumm (0.11-0.7) H 11/04/19 05:55 Absolute Eosinophils 0.16 k/cumm (0.0-0.7) 11/04/19 05:55 Absolute Basophils 0.02 k/cumm (0.0-0.2) 11/04/19 05:55 Differential Comment Diff reviewed 10/31/19 06:52 RBC Morphology See below 10/31/19 06:52 Polychromasia Present 10/31/19 06:52 Anisocytosis 1+ 10/31/19 06:52 PT 11.6 sec (9.3-11.0) H 10/30/19 14:27 INR 1.2 (0.9-1.1) H 10/30/19 14:27 VBG pH 7.49 (7.35-7.45) H 10/30/19 14:27 VBG pCO2 34 mm/Hg (34-47) 10/30/19 14:27 VBG pO2 47 mm/Hg (28-44) H 10/30/19 14:27 VBG HCO3 26 mmol/L (22-28) 10/30/19 14:27 VBG Total CO2 23 mmol/L (22-29) 10/30/19 14:27 VBG O2 Saturation 87 % (70-80) H 10/30/19 14:27 VBG Base Excess 2.4 mmol/L (-3-3) 10/30/19 14:27 Sodium 138 mmol/L (136-145) 11/01/19 06:47 Potassium 4.0 mmol/L (3.5-5.1) 11/01/19 06:47 Chloride 104 mmol/L (98-107) 11/01/19 06:47 Carbon Dioxide 27.6 mmol/L (21.0-32.0) 11/01/19 06:47 Anion Gap 6.4 mmol/L (3-11) 11/01/19 06:47 BUN 13 mg/dL (7-18) 11/01/19 06:47 Creatinine 0.83 mg/dL (0.70-1.30) 11/04/19 05:55 Estimated GFR/1.73 m2 >= 60.00 (mL/min/1.73m2) 11/04/19 05:55 Glucose 137 mg/dL (74-106) H D 11/01/19 06:47 Hemoglobin A1c 10.4 % (3.8-5.6) H 10/30/19 14:27 Lactate Cancelled 10/30/19 13:51 Calcium 7.7 mg/dL (8.5-10.1) L 11/01/19 06:47 Magnesium 1.9 mg/dL (1.8-2.4) 11/01/19 06:47 Total Bilirubin 1.3 mg/dL (0.2-1.0) H 10/30/19 13:40 AST 19 U/L (15-37) 10/30/19 13:40 ALT 28 U/L (16-63) 10/30/19 13:40 Alkaline Phosphatase 104 U/L (46-116) 10/30/19 13:40 C-Reactive Protein 20.95 mg/dL (0.0-0.3) H 11/01/19 06:47 Total Protein 7.8 g/dL (6.4-8.2) 10/30/19 13:40 Albumin 3.5 g/dL (3.4-5.0) 10/30/19 13:40 Procalcitonin 0.5 ng/mL 10/31/19 06:52 TSH 0.63 uIU/mL (0.36-3.74) 10/31/19 06:52 Urine Color Yellow (Yellow) 10/30/19 19:04 Urine Clarity Clear (Clear) 10/30/19 19:04 Urine pH 6.0 (5-8) 10/30/19 19:04 Ur Specific [place] 1.010 (1.005-1.025) 10/30/19 19:04 Urine Protein Negative mg/dL (Negative) 10/30/19 19:04 Urine Ketones 15 mg/dL (Negative) H 10/30/19 19:04 Urine Blood Small (Negative) H 10/30/19 19:04 Urine Nitrite Negative (Negative) 10/30/19 19:04 Urine Bilirubin Negative (Negative) 10/30/19 19:04 Urine Urobilinogen 2.0 EU/dL (Up TO 0.2) H 10/30/19 19:04 Ur Leukocyte Esterase Negative (Negative) 10/30/19 19:04 Urine RBC 20-50 HPF (0-2) H 10/30/19 19:04 Urine WBC 0-2 HPF (0-5) 10/30/19 19:04 Ur Epithelial Cells Negative HPF (Negative) 10/30/19 19:04 Urine Crystals Negative HPF (Negative) 10/30/19 19:04 Urine Bacteria Negative HPF (Negative) 10/30/19 19:04 Urine Casts Negative LPF (Negative) 10/30/19 19:04 Urine Mucus Negative (Negative) 10/30/19 19:04 Urine Other Negative (Negative) 10/30/19 19:04 Ur Culture Indicated? No 10/30/19 19:04 Urine Glucose 500 mg/dL (Negative) H 10/30/19 19:04 Vancomycin Trough 15.2 ug/mL (10.0-20.0) 11/04/19 05:55 Gram Stain Cancelled 10/30/19 14:51 Anaerobic Culture Cancelled 10/30/19 14:51 Anaerob Organism Srce Cancelled 10/30/19 14:51 Anaer Org ID Rpt Status Cancelled 10/30/19 14:51
--- NOTE | 2019-11-05 15:04 | PGE_ITS ---
Date of Service Date of service: 11/05/19 Time of Service: 15:04 Assessment and Plan Assessment and plan (1) MRSA cellulitis: Status: Acute (2) Abscess of arm, left: Status: Acute Assessment and plan: resolving/infection abating. 2nd abscess resolving on linezolid see d/c orders home wound Vac placed abx- linezolid probiotics for 30 days walking htn/dm per hosp f/u on clinic on sunday and will do vac drainage (3) Sepsis: Status: Acute Subjective Subjective Interval history since last seen: Pt is doing well. no headaches. No CP or SOB. no productive cough. no dysuria. no leg pain or swelling. no diarrhea. pain is controlled. the redness on the second site is resolving nicely on the linezolid. RN will place home wound vac today Exam Extrem Left upper extremity: full ROM, normal capillary refill and no joint enlargement; no cyanosis and no edema Other: edema/swelling is signif improvedThe pt who presents today for follow up/ chronic wound care. The pt has been having no nausea or vomiting; no chest pain, shortness of breath or productive cough. Patient has been urinating without any difficulties and moving bowel w/ no straining or bleeding. No problems with diarrhea (continues to eat yogurt daily if on abx). No fever/chills/sweats. Patient has no calf pain swelling, tenderness, or redness. Patient has been sleeping at night with no problems. Patient has been ambulating without difficulty. Patient has been able to tolerate a regular diet. Patient has had good relief with previously prescribed pain meds. The pt motor/sensory/vascular status is intact without any signs of acute or chronic ischemia. Past Medical, social, family histories, medications, and allergies reviewed and updated ROS: 4 point ROS neg other than the symptoms noted above in the HPI. Wound location left shoulder/forarm Size: 4x6cm. contacted down from orig 11x8cm Undermining: Wound Base: - 60% granular Surrounding Tissue: intact Pain decreasing Signs of infection :resolving/improving Abx: linezolid Vascular status: intact Protein status: good Pressure offloading: yes Smoker: no Diabetes newly dg is intact. the surrounding skin is c/d/i. serous drainage. no redness Objective Objective Clinical Data: Vital Signs Temperature 36.7 C 11/05/19 12:00 Temperature Source Tympanic 11/05/19 12:00 Pulse 71 11/05/19 12:00 Pulse Rhythm Regular 11/05/19 07:42 Respiratory Rate 18 11/05/19 12:00 Respiratory Effort Non-Labored 11/05/19 07:42 Respiratory Depth Normal 11/05/19 07:42 Respiratory Pattern Normal 11/05/19 07:42 Blood Pressure 148/78 H 11/05/19 12:00 Blood Pressure Position Sitting 10/30/19 12:50 Pulse Oximetry 96 11/05/19 12:00 Respiratory End-tidal CO2 33 10/30/19 15:45 Oxygen Delivery Method Room Air 11/05/19 12:00 Oxygen Flow Rate 0 11/05/19 12:00 Pain Level 0 11/05/19 12:00 Comment 11/05/19 07:42 Intake & Output 11/04/19 11/05/19 11/05/19 23:59 11:59 23:59 Intake Total 830 / 1080 150 / 390 240 / 390 Output Total 500 / 500 675 / 675 Balance 330 / 580 -525 / -285 240 / -285 Intake: IV 350 / 450 Oral 480 / 630 150 / 390 240 / 390 Output: Urine 500 / 500 675 / 675 Other: Urine Color Yellow Yellow Urine Appearance Clear Clear Urine Odor None Normal Voiding Methods Urinal Urinal Laboratory Results WBC 8.11 k/cumm (4.4-10.8) 11/04/19 05:55 RBC 4.25 m/cumm (4.50-6.00) L 11/04/19 05:55 Hgb 12.5 g/dL (13.5-17.5) L 11/04/19 05:55 Hct 37.0 % (40.0-50.0) L 11/04/19 05:55 MCV 87.1 fL (80-95) 11/04/19 05:55 MCH 29.4 pg (27.0-33.0) 11/04/19 05:55 MCHC 33.8 g/dL (32.0-36.0) 11/04/19 05:55 RDW 12.4 % (11.8-14.1) 11/04/19 05:55 Plt Count 282 x1000/uL (130-400) 11/04/19 05:55 MPV 10.7 fL (8.0-11.0) 11/04/19 05:55 Immature Gran % 1.7 % 11/04/19 05:55 Neutrophils % 65.5 11/04/19 05:55 Lymphocytes % 21.8 11/04/19 05:55 Monocytes % 8.8 11/04/19 05:55 Eosinophils % 2.0 11/04/19 05:55 Basophils % 0.2 11/04/19 05:55 Absolute Neutrophils 5.31 k/cumm (1.2-6.7) 11/04/19 05:55 Absolute Lymphocytes 1.77 k/cumm (1.2-3.4) 11/04/19 05:55 Absolute Monocytes 0.71 k/cumm (0.11-0.7) H 11/04/19 05:55 Absolute Eosinophils 0.16 k/cumm (0.0-0.7) 11/04/19 05:55 Absolute Basophils 0.02 k/cumm (0.0-0.2) 11/04/19 05:55 Differential Comment Diff reviewed 10/31/19 06:52 RBC Morphology See below 10/31/19 06:52 Polychromasia Present 10/31/19 06:52 Anisocytosis 1+ 10/31/19 06:52 PT 11.6 sec (9.3-11.0) H 10/30/19 14:27 INR 1.2 (0.9-1.1) H 10/30/19 14:27 VBG pH 7.49 (7.35-7.45) H 10/30/19 14:27 VBG pCO2 34 mm/Hg (34-47) 10/30/19 14:27 VBG pO2 47 mm/Hg (28-44) H 10/30/19 14:27 VBG HCO3 26 mmol/L (22-28) 10/30/19 14:27 VBG Total CO2 23 mmol/L (22-29) 10/30/19 14:27 VBG O2 Saturation 87 % (70-80) H 10/30/19 14:27 VBG Base Excess 2.4 mmol/L (-3-3) 10/30/19 14:27 Sodium 138 mmol/L (136-145) 11/01/19 06:47 Potassium 4.0 mmol/L (3.5-5.1) 11/01/19 06:47 Chloride 104 mmol/L (98-107) 11/01/19 06:47 Carbon Dioxide 27.6 mmol/L (21.0-32.0) 11/01/19 06:47 Anion Gap 6.4 mmol/L (3-11) 11/01/19 06:47 BUN 13 mg/dL (7-18) 11/01/19 06:47 Creatinine 0.83 mg/dL (0.70-1.30) 11/04/19 05:55 Estimated GFR/1.73 m2 >= 60.00 (mL/min/1.73m2) 11/04/19 05:55 Glucose 137 mg/dL (74-106) H D 11/01/19 06:47 Hemoglobin A1c 10.4 % (3.8-5.6) H 10/30/19 14:27 Lactate Cancelled 10/30/19 13:51 Calcium 7.7 mg/dL (8.5-10.1) L 11/01/19 06:47 Magnesium 1.9 mg/dL (1.8-2.4) 11/01/19 06:47 Total Bilirubin 1.3 mg/dL (0.2-1.0) H 10/30/19 13:40 AST 19 U/L (15-37) 10/30/19 13:40 ALT 28 U/L (16-63) 10/30/19 13:40 Alkaline Phosphatase 104 U/L (46-116) 10/30/19 13:40 C-Reactive Protein 20.95 mg/dL (0.0-0.3) H 11/01/19 06:47 Total Protein 7.8 g/dL (6.4-8.2) 10/30/19 13:40 Albumin 3.5 g/dL (3.4-5.0) 10/30/19 13:40 Procalcitonin 0.5 ng/mL 10/31/19 06:52 TSH 0.63 uIU/mL (0.36-3.74) 10/31/19 06:52 Urine Color Yellow (Yellow) 10/30/19 19:04 Urine Clarity Clear (Clear) 10/30/19 19:04 Urine pH 6.0 (5-8) 10/30/19 19:04 Ur Specific [place] 1.010 (1.005-1.025) 10/30/19 19:04 Urine Protein Negative mg/dL (Negative) 10/30/19 19:04 Urine Ketones 15 mg/dL (Negative) H 10/30/19 19:04 Urine Blood Small (Negative) H 10/30/19 19:04 Urine Nitrite Negative (Negative) 10/30/19 19:04 Urine Bilirubin Negative (Negative) 10/30/19 19:04 Urine Urobilinogen 2.0 EU/dL (Up TO 0.2) H 10/30/19 19:04 Ur Leukocyte Esterase Negative (Negative) 10/30/19 19:04 Urine RBC 20-50 HPF (0-2) H 10/30/19 19:04 Urine WBC 0-2 HPF (0-5) 10/30/19 19:04 Ur Epithelial Cells Negative HPF (Negative) 10/30/19 19:04 Urine Crystals Negative HPF (Negative) 10/30/19 19:04 Urine Bacteria Negative HPF (Negative) 10/30/19 19:04 Urine Casts Negative LPF (Negative) 10/30/19 19:04 Urine Mucus Negative (Negative) 10/30/19 19:04 Urine Other Negative (Negative) 10/30/19 19:04 Ur Culture Indicated? No 10/30/19 19:04 Urine Glucose 500 mg/dL (Negative) H 10/30/19 19:04 Vancomycin Trough 15.2 ug/mL (10.0-20.0) 11/04/19 05:55 Gram Stain Cancelled 10/30/19 14:51 Anaerobic Culture Cancelled 10/30/19 14:51 Anaerob Organism Srce Cancelled 10/30/19 14:51 Anaer Org ID Rpt Status Cancelled 10/30/19 14:51
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
--- NOTE | 2019-11-05 15:47 | PDOC.CMDIS ---
- If Service Date Differs Date of service: 11/05/19 Time of Service: 15:47 LACE Index Scoring Tool - Questions: Length of Stay (in days): 7 - 13 Acuity (Admit via E.D.?): Yes Comorbidities: Diabetes w/o Complication E.D. Visits: 1 - Answers: Total Score: 10 Risk of Readmission: High Risk Care Management Discharge Reason for Hospitalization: Abscess left arm, new onset diabetes Discharge Plan: Say will return home with a home wound vac, which was changed today. He will have new HH RN for his dressing changes, coordinated by NATE. His s/o will drive him home via private vehicle. He has new prescriptions for diabetes supplies. He is agreeable to returning home. Patient/Family Education Needs: Review discharge instructions regarding activity levels and medications, discussion of self care needs including ask me three Services Needed at Discharge: DME Agency ([facility], home wound vac), Home Health Care Services (RN)
[2019-11-05] MEDS: metFORMIN C.R. 500 MG TABCR PO (16:52)
--- NOTE | 2019-11-10 12:13 | W.DIABETESNO ---
Date of service: 11/10/19 Time of Service: 12:13 Diabetes Note NOTE: TELEPHONE FOLLOW-UP: Upon discharge I was advised by his surgeon to offer a follow-up diabetes outpatient visit per phone call from RN. I called him today to set up an appointment. He states he feels he is doing very well taking 10u Lantus and Metformin. Blood sugars fasting 108 and 128 over past 2 days; 155 at lunch yesterday, 110mg/dl at supper, 163 at bedtime. States he is eating well and feels his partner is doing a good job feeding him. He is not yet physically active because his wound has not yet healed. He declines support at this time but is aware of our support and has our contact information. He will consider this when he stops using the wound vac. Time Spent in Nutritional Counseling and Treatment: 0 minutes face to face
== END 2019-11-05 17:48 | disposition home or self-care (01) | DRG 854 ==
LOC: ER 13:53 → MS 14:33
PROVIDERS: Internal Medicine; Surgery; Admitting Provider Surgery; Emergency Provider Student in an Organized Health Care Education/Training Program; PCP Family Medicine; Visit Provider Surgery
PROC: 0J9F0ZZ Drainage of Left Upper Arm Subcutaneous Tissue and Fascia, Open Approach (ICD-10-PCS; CPT 23030; principal; 2019-10-30 14:00)
DX: A41.9 Sepsis, unspecified organism (principal); L02.412 Cutaneous abscess of left axilla; L02.414 Cutaneous abscess of left upper limb; L03.114 Cellulitis of left upper limb; E11.628 Type 2 diabetes mellitus with other skin complications; B95.62 Methicillin resistant Staphylococcus aureus infection as the cause of diseases classified elsewhere; E11.65 Type 2 diabetes mellitus with hyperglycemia; I10 Essential (primary) hypertension; B35.3 Tinea pedis; Z83.3 Family history of diabetes mellitus; Z71.3 Dietary counseling and surveillance
CPT/HCPCS: 23030; 36415; 36416; 76881; 80048; 80053; 82805; 82947; 82962; 84145; 85027; 87040; 87070; 87077; 96361; 97110; 97140; 97161; 97530; 97607; 99223; 99231; 99232; 99233; 99239; 99254; 99285; J1650; NC; 80202; 81003; 81015; 82565; 83036; 83605; 83735; 84443; 85025; 85610; 86140; 87075; 87186; 87205; 93005; 93010; 93306; 99284; J0131; J1885; J2001; J2405; J2543; J2704; J3010; J3370; J3490

== ENCOUNTER → 2019-11-10 09:37 | Outpatient (CLI) | payer MEDICARE, OTHER, SELFPAY ==
[2019-11-10 11:35] LABS: Anion Gap 10.4 mmol/L (3-11); BUN 22 mg/dL (7-18); CO2 26.6 mmol/L (21.0-32.0); Calcium 9.7 mg/dL (8.5-10.1); Chloride 104 mmol/L (98-107); Glucose 245 mg/dL (74-106); Potassium 4.2 mmol/L (3.5-5.1); Sodium 141 mmol/L (136-145)
[2019-11-10 11:48] LABS: Bilirubin Negative (Negative); Blood Negative (Negative); Clarity Clear (Clear); Glucose Negative (Negative); Ketones Negative (Negative); Leukocyte Esterase Negative (Negative); Nitrite Negative (Negative); Specific Gravity 1.025 (1.005-1.025); Urobilinogen 0.2 EU/dL (Up TO 0.2); pH 5.5 (5-8)
== END ==
PROVIDERS: PCP Family Medicine; Visit Provider Family Medicine
DX: E11.9 Type 2 diabetes mellitus without complications (principal); R31.9 Hematuria, unspecified
CPT/HCPCS: 36415; 80048; 81003

== ENCOUNTER → 2019-11-12 10:49 | Outpatient (BNVA) | payer MEDICARE, OTHER, SELFPAY | PROVIDERS: PCP Family Medicine; Referring Provider Family Medicine; Visit Provider Surgery | DX: R69 Illness, unspecified (principal) | CPT/HCPCS: 99212 ==

== ENCOUNTER 2019-11-13 02:30 | Outpatient (CLI) | payer BC, SELFPAY ==
--- NOTE | 2019-11-13 09:50 | DIABASSESS_ITS ---
DESCRIPTION/ASSESSMENT: Follow up outpatient visit from his inpatient stay for a wound infection/abscess. He is having difficulty obtaining a blood sample for his Freestyle precision glucometer. In addition, he and his partner have many food questions. He states he does get readings but has to wste many strips in the process. Blood sugars fasting initially 163 now less than 128 over past 6 days; pre-lunch 635=247uq/dl; pre-supper 105-162 and bedtime 132-165. He takes 10u Lantus nightly. Breakfast is oatmeal or cold cereal, fruit, toast; lunch is luncheon meat with cheese and vegetables; supper is meat and vegetables with a small potato. INTERVENTION: DSME is provided in the following AADE 7 areas based on patients interest and assessment of needs: Reviewed glucose testing and he is able to see where he was not able to get an adequate sample for monitoring. We reviewed carbohydrate sources and portions at each meal and he is able to see why blood sugars are highest before lunch after his carbohydrate load at breakfast. Discussed alternative for breakfast and they both voice understanding. Reviewed food label. ACTION PLAN: Say will use the proper procedure to obtain blood sample add protein and fat to his breakfast meal; cut back on number of carbohydrate servings They will be in touch by telephone as needed. Individual DSME/T __0__ units billed TIME IN:0005 OUT: 1015 No DM group education series being offered at this time.
== END 2019-11-13 02:50 ==
PROVIDERS: PCP Family Medicine; Visit Provider Dietitian, Registered
DX: E11.9 Type 2 diabetes mellitus without complications (principal); Z79.4 Long term (current) use of insulin; Z71.3 Dietary counseling and surveillance

== ENCOUNTER → 2019-11-19 10:46 | Outpatient (BNVA) | payer MEDICARE, OTHER, SELFPAY | PROVIDERS: PCP Family Medicine; Referring Provider Family Medicine; Visit Provider Surgery | DX: R69 Illness, unspecified (principal) ==

== ENCOUNTER → 2019-12-12 12:57 | Outpatient (REF) | payer OTHER, BC, SELFPAY ==
[2019-12-12 14:53] LABS: Abs Immature Grans 0.01 k/cumm (0.0-0.09); Absolute Lymphocyte Count 1.95 k/cumm (1.2-3.4); Absolute Monocyte Count 0.84 k/cumm (0.11-0.7); Absolute Neutrophil Count 7.39 k/cumm (1.2-6.7); HCT 41.3 % (40.0-50.0); HGB 14.2 g/dL (13.5-17.5); Immature Grans % 0.1 %; Mean Corp. HGB Concentration 34.4 g/dL (32.0-36.0); Mean Corpuscular Hemoglobin 29.3 pg (27.0-33.0); Mean Corpuscular Volume 85.3 fL (80-95); Mean Platelet Volume 12.2 fL (8.0-11.0); Monocytes % 8.2; Neutrophils % 71.7; Platelet Count 207 x1000/uL (130-400); RBC 4.84 m/cumm (4.50-6.00); White Blood Cell Count 10.29 k/cumm (4.4-10.8)
[2019-12-12 15:01] LABS: C-Reactive Protein 2.47 mg/dL (0.0-0.3)
== END ==
LOC: LBN 12:57
PROVIDERS: PCP Family Medicine; Visit Provider Surgery
DX: B95.62 Methicillin resistant Staphylococcus aureus infection as the cause of diseases classified elsewhere (principal); E11.9 Type 2 diabetes mellitus without complications; L02.414 Cutaneous abscess of left upper limb
CPT/HCPCS: 87077; 87081; 85025; 86140; 87070; 87186; 87205

== ENCOUNTER 2019-12-13 13:21 | Emergency (ER) | payer OTHER, BC, SELFPAY ==
[2019-12-13 13:24] VITALS: BP 148/80; PULSE 72; RESP 16; TEMP 36.4; O2SAT 96
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
[2019-12-13] MEDS: VANCOMYCIN 1,000 MG in Normal Saline 250 ML 166.6666 MG IVPB (13:43)
--- NOTE | 2019-12-13 14:32 | NUR.NOTE ---
Lab called to confirm Mersa in wound and positive in nasal as well. 12/13/2019 nurse and WHALE FISHERMAN notified. Nursing Note:
[2019-12-13 14:46] VITALS: BP 109/58; PULSE 70; RESP 16; TEMP 37; O2SAT 94
== END 2019-12-13 15:54 | disposition home or self-care (01) ==
PROVIDERS: Emergency Provider Registered Nurse Emergency; PCP Family Medicine
DX: A49.02 Methicillin resistant Staphylococcus aureus infection, unspecified site (principal); E11.9 Type 2 diabetes mellitus without complications; Z79.4 Long term (current) use of insulin
CPT/HCPCS: 36416; 82962; 96365; 96366; 99284; 99283

== ENCOUNTER 2019-12-15 13:43 | Inpatient (IN) | payer MEDICARE, OTHER, SELFPAY ==
--- NOTE | 2019-12-15 13:50 | DI.RAD_ITS ---
EXAM: XR HAND LT COMPLETE CLINICAL HISTORY: mrsa infection left hand not improving TECHNIQUE: 2D digital imaging was performed. COMPARISON: No exams were available for comparison FINDINGS: There is soft tissue swelling is a small so soft tissue defect at the dorsum of the hand at the level of the metacarpal heads. There is no evidence of fracture or bony erosion. There is a metallic den sity seen in the soft tissues at the level of the proximal phalanx of the 4th finger. There are dege nerative changes of the interphalangeal joints of the fingers and thumb. There is dorsiflexion at the 5th proximal interphalangeal joint. Degenerative changes are also seen at the scaphoid trapezium- tr apezoid joints and 1st carpometacarpal joint. IMPRESSION: Dorsal soft tissue wound is thickening at the level of the metacarpal heads. No bony erosion. [place] llic foreign body in the ventral soft tissues of the 4th finger. Degenerative changes.
[2019-12-15 14:06] VITALS: BP 138/81; PULSE 73; RESP 18; TEMP 36.6; O2SAT 95
[2019-12-15 14:28] LABS: HCT 39.8 % (40.0-50.0); HGB 13.7 g/dL (13.5-17.5); Mean Corp. HGB Concentration 34.4 g/dL (32.0-36.0); Mean Corpuscular Hemoglobin 29.3 pg (27.0-33.0); Mean Platelet Volume 11.2 fL (8.0-11.0); Platelet Count 265 x1000/uL (130-400); RBC 4.68 m/cumm (4.50-6.00); RBC Distribution Width 12.7 % (11.8-14.1); White Blood Cell Count 6.57 k/cumm (4.4-10.8)
[2019-12-15 14:30] VITALS: BP 138/81; PULSE 73; RESP 18; TEMP 36.6; O2SAT 95
[2019-12-15 14:43] LABS: ALT 23 U/L (16-63); AST 17 U/L (15-37); Albumin 3.7 g/dL (3.4-5.0); Alkaline Phosphatase 65 U/L (46-116); BUN 18 mg/dL (7-18); Bilirubin, Total 0.9 mg/dL (0.2-1.0); CREATININE 1.09 mg/dL (0.70-1.30); Calcium 10.1 mg/dL (8.5-10.1); Chloride 103 mmol/L (98-107); Glucose 109 mg/dL (74-106); Potassium 3.9 mmol/L (3.5-5.1); Sodium 141 mmol/L (136-145)
[2019-12-15] MEDS: VANCOMYCIN 1,000 MG in Normal Saline 250 ML 166.667 MG IVPB (14:56)
[2019-12-15] MEDS: Normal Saline 1,000 ML 30 ML IV (14:57)
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
[2019-12-15] MEDS: Normal Saline Flush 10 ML SYR IVP (15:45)
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
[2019-12-15] MEDS: Ibuprofen 600 MG TAB PO ×2 (16:48→21:36)
[2019-12-15 19:05] VITALS: BP 107/64; PULSE 68; RESP 18; TEMP 36.3; O2SAT 95
[2019-12-15] MEDS: Lactobacillus Acidophilus CAP 1 CAP PO (20:30)
[2019-12-16] MEDS: VANCOMYCIN 1,000 MG in Normal Saline 250 ML 166.667 MG IV (01:53)
[2019-12-16 04:49] VITALS: BP 139/85; PULSE 62; RESP 16; TEMP 36.2; O2SAT 96
[2019-12-16 07:51] VITALS: BP 144/88; PULSE 68; RESP 17; TEMP 35.8; O2SAT 94
[2019-12-16] MEDS: Lisinopril 10 MG TAB PO (08:38)
[2019-12-16] MEDS: Lactobacillus Acidophilus CAP 1 CAP PO ×2 (08:38→20:57)
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
[2019-12-16] MEDS: Ibuprofen 600 MG TAB PO ×3 (10:15→20:57)
--- NOTE | 2019-12-16 10:17 | W.PM.PROGNOT ---
Date of Service Date of service: 12/16/19 Time of Service: 10:17 Assessment and Plan Assessment and plan (1) Abscess of hand excluding fingers and thumb: Status: Acute Assessment and plan: The area is improved per the patient, with slightly decreased swelling and better ROM No need for I and D Continue IV antibiotics another 24 hours and then re-assess. Wound dressed after exam by nurse. Subjective Subjective Interval history since last seen: Patient denies pain. No fever. Has improved mobility in his hand compared to yesterday. Exam Narrative Exam Narrative: No acute distress Dressing on left hand removed. Wound has 5mm opening with a few cm of surrounding erythema and induration. No purulent drainage, no undrained areas. Good ROM. There is no extension of erythema proximally. His left shoulder wound looks good. No cellulitis. Wound is flush with the skin with granulation. Objective Objective Clinical Data: Abnormal lab results 12/15/19 12/15/19 Range/Units 14:05 14:05 Hct 39.8 L (40.0-50.0) % MPV 11.2 H (8.0-11.0) fL Glucose 109 H (74-106) mg/dL C-Reactive Protein 2.20 H (0.0-0.3) mg/dL Vital Signs Temperature 96.4 F L 12/16/19 07:51 Temperature Source Temporal Artery Scan 12/16/19 07:51 Pulse 68 12/16/19 07:51 Pulse Rhythm Regular 12/16/19 03:05 Respiratory Rate 17 12/16/19 07:51 Respiratory Effort Non-Labored 12/16/19 03:05 Respiratory Depth Normal 12/16/19 03:05 Respiratory Pattern Normal 12/16/19 03:05 Blood Pressure 144/88 H 12/16/19 07:51 Pulse Oximetry 94 L 12/16/19 07:51 Oxygen Delivery Method Room Air 12/16/19 07:51 Oxygen Flow Rate 0 12/16/19 07:51 Pain Level 0 12/16/19 10:15 Intake & Output 12/15/19 12/15/19 12/16/19 11:59 23:59 11:59 Intake Total 50 / 50 250 / 250 Balance 50 / 50 250 / 250 Weight 176 lb 2.389 oz Intake: IV 250 / 250 Oral 50 / 50 Other: Urine Color Yellow Urine Appearance Clear Clear Stool Size Moderate Stool Characteristics Soft Formed Voiding Methods Toilet Laboratory Results WBC 6.57 k/cumm (4.4-10.8) 12/15/19 14:05 RBC 4.68 m/cumm (4.50-6.00) 12/15/19 14:05 Hgb 13.7 g/dL (13.5-17.5) 12/15/19 14:05 Hct 39.8 % (40.0-50.0) L 12/15/19 14:05 MCV 85.0 fL (80-95) 12/15/19 14:05 MCH 29.3 pg (27.0-33.0) 12/15/19 14:05 MCHC 34.4 g/dL (32.0-36.0) 12/15/19 14:05 RDW 12.7 % (11.8-14.1) 12/15/19 14:05 Plt Count 265 x1000/uL (130-400) 12/15/19 14:05 MPV 11.2 fL (8.0-11.0) H 12/15/19 14:05 Sodium 141 mmol/L (136-145) 12/15/19 14:05 Potassium 3.9 mmol/L (3.5-5.1) 12/15/19 14:05 Chloride 103 mmol/L (98-107) 12/15/19 14:05 Carbon Dioxide 27.0 mmol/L (21.0-32.0) 12/15/19 14:05 Anion Gap 11.0 mmol/L (3-11) 12/15/19 14:05 BUN 18 mg/dL (7-18) 12/15/19 14:05 Creatinine 1.09 mg/dL (0.70-1.30) 12/15/19 14:05 Estimated GFR/1.73 m2 >= 60.00 (mL/min/1.73m2) 12/15/19 14:05 Glucose 109 mg/dL (74-106) H 12/15/19 14:05 Calcium 10.1 mg/dL (8.5-10.1) 12/15/19 14:05 Total Bilirubin 0.9 mg/dL (0.2-1.0) 12/15/19 14:05 AST 17 U/L (15-37) 12/15/19 14:05 ALT 23 U/L (16-63) 12/15/19 14:05 Alkaline Phosphatase 65 U/L (46-116) 12/15/19 14:05 C-Reactive Protein 2.20 mg/dL (0.0-0.3) H 12/15/19 14:05 Total Protein 8.0 g/dL (6.4-8.2) 12/15/19 14:05 Albumin 3.7 g/dL (3.4-5.0) 12/15/19 14:05 Gram Stain Cancelled 12/15/19 13:48 Anaerobic Culture Cancelled 12/15/19 13:48 Anaerob Organism Srce Cancelled 12/15/19 13:48 Anaer Org ID Rpt Status Cancelled 12/15/19 13:48
--- NOTE | 2019-12-16 11:09 | PHA.REVIEW ---
Pharmacy Admission Review - Admission Clinical Review (Last Reviewed 12/15/19 @ 15:48 by Opal Mathew DO) MRSA (methicillin resistant staph aureus) culture positive (Acute) Hx MRSA infection (Acute) Abscess of hand excluding fingers and thumb (Acute) MRSA cellulitis (Acute) New onset type 2 diabetes mellitus (Acute) No Known Allergies Allergy (Unverified 12/15/19 12:53) Height 5 ft 6 in Weight 79.9 kg - Renal Dosing Renal Dosing: BUN 18 mg/dL (7-18) 12/15/19 14:05 Creatinine 1.09 mg/dL (0.70-1.30) 12/15/19 14:05 Medications needing adjustments: Reviewed (Crcl ~56 mL/min, current meds okay. Consider alternative for ibuprofen if renal function worsens) - Anticoagulation Anticoagulation: Hgb 13.7 g/dL (13.5-17.5) 12/15/19 14:05 Hct 39.8 % (40.0-50.0) L 12/15/19 14:05 Plt Count 265 x1000/uL (130-400) 12/15/19 14:05 Creatinine 1.09 mg/dL (0.70-1.30) 12/15/19 14:05 DVT Prohphylaxis: Intervened (sent page to MD about this as was not mentioned in H+P or progress note. Per nursing pt is up/ambulating and has SCDs) Therapeutic Anticoagulation: N/A - Opiate Usage Evaluate Pain Scale/Pains Meds: Reviewed (pain 0/10 today, no opioids used since admission) Scheduled Bowel Reg ordered if on Opiates?: No (follow up if needed) - Relevant Labs Sodium 141 mmol/L (136-145) 12/15/19 14:05 Potassium 3.9 mmol/L (3.5-5.1) 12/15/19 14:05 Chloride 103 mmol/L (98-107) 12/15/19 14:05 C-Reactive Protein 2.20 mg/dL (0.0-0.3) H 12/15/19 14:05 Electrolytes, C-Reactive P, ESR: Reviewed - DM Control DM Control: Glucose 109 mg/dL (74-106) H 12/15/19 14:05 Finger Stick Blood Glucose 105 Finger Stick Blood Glucose 105 Finger Stick Blood Glucose 99 Insulin Dosing: Reviewed (sliding scale aspart ordered) - Heart Failure/HI EF%, PAKO's, B-Blockers, Diuretics: N/A (lisinopril) - BP Control BP Control: Blood Pressure 144/88 Blood Pressure 139/85 If elevated: Reviewed - Qtc Review If Elevated: N/A - IV to PO Switch IV Medications: N/A - Home Meds Home Med List reviewed: Reviewed (MAOIs (linezolid) and hydrocodone: MAOIs may enhance the adverse/toxic effects of hydrocodone; consider alternatives when possible and if used in combo monitor closely for adverse/toxic effects) Relevent Home Meds Not ordered & why?: chlorhexidine, insulin glargine and metformin (has sliding scale aspart), linezolid (has other abx ordered), mupirocin - Current meds Current Medication Order Review: Reviewed - Comments Comments/Follow Ups: Watch renal function, consider alternative to ibuprofen if renal function decreases. Talk to MD about ordering BM meds if needed (pt not currently using opioids). Vanco trough ordered for tomorrow afternoon. MD plans on reassessing abx tomorrow per progress note.
[2019-12-16] MEDS: Insulin Aspart 300 UNITS/3 ML PEN SC (12:05)
[2019-12-16] MEDS: VANCOMYCIN 1,000 MG in Normal Saline 250 ML 166.67 MG IV (14:25)
[2019-12-16] MEDS: Enoxaparin 30 MG/0.3 ML SYR SC (14:25)
[2019-12-16 15:44] VITALS: BP 118/71; PULSE 68; RESP 18; TEMP 36.6; O2SAT 95
[2019-12-16] MEDS: Normal Saline 1,000 ML 30 ML IV (16:16)
[2019-12-16 19:21] VITALS: BP 119/75; PULSE 92; RESP 17; TEMP 36.8; O2SAT 96
[2019-12-16 23:50] VITALS: BP 130/82; PULSE 73; RESP 19; TEMP 36.7; O2SAT 95
[2019-12-17] MEDS: VANCOMYCIN 1,000 MG in Normal Saline 250 ML 166.667 MG IV ×2 (01:05→14:54)
[2019-12-17] MEDS: Ibuprofen 600 MG TAB PO ×2 (03:25→12:47)
[2019-12-17 07:59] VITALS: BP 129/81; PULSE 66; RESP 18; TEMP 35.8; O2SAT 94
[2019-12-17] MEDS: Lactobacillus Acidophilus CAP 1 CAP PO (08:33)
[2019-12-17] MEDS: Lisinopril 10 MG TAB PO (08:33)
--- NOTE | 2019-12-17 12:18 | PGE_ITS ---
Date of Service Date of service: 12/17/19 Time of Service: 11:30 Assessment and Plan Assessment and plan (1) MRSA (methicillin resistant staph aureus) culture positive: Status: Acute Assessment and plan: Improvement with IV Vancomycin Cultures- MRSA, sensitive to daptomycin, vancomycin, Bactrim P\\ Will discuss with ID at [facility] [place] as this is patients 3 abscess. He continues to test positive for MRSA. ? Home on po antibiotics vs IV antibiotics. ? how long should his therapy last Will need PICC line if ID recommends IV antibiotics ECHO done at last hospitalization- no vegetations noted. (2) Abscess of hand excluding fingers and thumb: Status: Acute (3) Hypertension: Status: Chronic Assessment and plan: A\\ BP's have been stable P\\ Continue on Home meds Qualifiers: Hypertension type: essential hypertension Qualified Code(s): I10 - Essential (primary) hypertension (4) New onset type 2 diabetes mellitus: Status: Acute Assessment and plan: A\\ Continue on DM medications Close follow up with PCP as outpatient Subjective Subjective Interval history since last seen: Mr. Carlin is doing well. No complaints. Feels he has full ROM in his hand again. No pain. dressing with minimal discharge Exam Const General: comfortable and no acute distress Orientation: alert and oriented x3 Resp Effort & Inspection: normal respiratory effort Auscultation: clear to auscultation bilaterally Cardio Rate: regular rate Rhythm: regular rhythm Skin Other: Left hand- small .3 x .3 mm opening. No purulent discharge small surrounding area of pink discoloration and swelling. No pain with palpation Dressing re-applied Objective Objective Clinical Data: Vital Signs Temperature 96.4 F L 12/17/19 07:59 Temperature Source Temporal Artery Scan 12/17/19 07:59 Pulse 66 12/17/19 07:59 Pulse Rhythm Regular 12/16/19 12:58 Respiratory Rate 18 12/17/19 07:59 Respiratory Effort Non-Labored 12/17/19 08:37 Respiratory Depth Normal 12/17/19 08:37 Respiratory Pattern Normal 12/17/19 08:37 Blood Pressure 129/81 12/17/19 07:59 Pulse Oximetry 94 L 12/17/19 07:59 Oxygen Delivery Method Room Air 12/17/19 07:59 Oxygen Flow Rate 0 12/17/19 07:59 Pain Level 0 12/17/19 07:59 Intake & Output 12/16/19 12/17/19 12/17/19 23:59 11:59 23:59 Intake Total 1349.5 / 1599.5 780 / 780 Balance 1349.5 / 1599.5 780 / 780 Intake: IV 1009.5 / 1259.5 250 / 250 Oral 340 / 340 530 / 530 Other: Urine Appearance Clear Clear Laboratory Results WBC 6.57 k/cumm (4.4-10.8) 12/15/19 14:05 RBC 4.68 m/cumm (4.50-6.00) 12/15/19 14:05 Hgb 13.7 g/dL (13.5-17.5) 12/15/19 14:05 Hct 39.8 % (40.0-50.0) L 12/15/19 14:05 MCV 85.0 fL (80-95) 12/15/19 14:05 MCH 29.3 pg (27.0-33.0) 12/15/19 14:05 MCHC 34.4 g/dL (32.0-36.0) 12/15/19 14:05 RDW 12.7 % (11.8-14.1) 12/15/19 14:05 Plt Count 265 x1000/uL (130-400) 12/15/19 14:05 MPV 11.2 fL (8.0-11.0) H 12/15/19 14:05 Sodium 141 mmol/L (136-145) 12/15/19 14:05 Potassium 3.9 mmol/L (3.5-5.1) 12/15/19 14:05 Chloride 103 mmol/L (98-107) 12/15/19 14:05 Carbon Dioxide 27.0 mmol/L (21.0-32.0) 12/15/19 14:05 Anion Gap 11.0 mmol/L (3-11) 12/15/19 14:05 BUN 18 mg/dL (7-18) 12/15/19 14:05 Creatinine 1.09 mg/dL (0.70-1.30) 12/15/19 14:05 Estimated GFR/1.73 m2 >= 60.00 (mL/min/1.73m2) 12/15/19 14:05 Glucose 109 mg/dL (74-106) H 12/15/19 14:05 Calcium 10.1 mg/dL (8.5-10.1) 12/15/19 14:05 Total Bilirubin 0.9 mg/dL (0.2-1.0) 12/15/19 14:05 AST 17 U/L (15-37) 12/15/19 14:05 ALT 23 U/L (16-63) 12/15/19 14:05 Alkaline Phosphatase 65 U/L (46-116) 12/15/19 14:05 C-Reactive Protein 2.20 mg/dL (0.0-0.3) H 12/15/19 14:05 Total Protein 8.0 g/dL (6.4-8.2) 12/15/19 14:05 Albumin 3.7 g/dL (3.4-5.0) 12/15/19 14:05 Gram Stain Cancelled 12/15/19 13:48 Anaerobic Culture Cancelled 12/15/19 13:48 Anaerob Organism Srce Cancelled 12/15/19 13:48 Anaer Org ID Rpt Status Cancelled 12/15/19 13:48
[2019-12-17 14:15] LABS: CREATININE 1.18 mg/dL (0.70-1.30)
[2019-12-17 14:29] LABS: C-Reactive Protein 0.62 mg/dL (0.0-0.3)
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
[2019-12-17] MEDS: Enoxaparin 30 MG/0.3 ML SYR SC (14:54)
[2019-12-17 15:30] VITALS: BP 137/79; PULSE 71; RESP 18; TEMP 36.6; O2SAT 96
--- NOTE | 2019-12-17 16:56 | PDOC.CMDIS ---
LACE Index Scoring Tool - Questions: Length of Stay (in days): 2 Acuity (Admit via E.D.?): Yes Comorbidities: Diabetes w/o Complication E.D. Visits: 2 - Answers: Total Score: 8 Risk of Readmission: Low Risk Care Management Discharge Reason for Hospitalization: MRSA Infection Left Hand Discharge Plan: Say will return home when ready per MD. He will follow up with his PCP and plan of care as prescribed. He will transport home via private vehicle with his significant other. Patient/Family Education Needs: Review discharge instructions, discuss Ask Me Three.
--- NOTE | 2019-12-18 19:58 | W.PM.PROGNOT ---
Date of Service Date of service: 12/18/19 Time of Service: 13:00 Assessment and Plan Assessment and plan (1) MRSA (methicillin resistant staph aureus) culture positive: Status: Acute (2) Abscess of hand excluding fingers and thumb: Status: Acute Assessment and plan: [place] [facility] [place] ID thinks we can continue w/ the linezolid. Most likely this is not a failure of this med- it just took longer to b/c efficacious. Also, will take longer b/c of DM. 50/50- wether decontamination helps. Will proceed with this plan. Will send pt home on the linezolid. (3) MRSA cellulitis: Status: Acute (4) Hypertension: Status: Chronic Qualifiers: Hypertension type: essential hypertension Qualified Code(s): I10 - Essential (primary) hypertension (5) New onset type 2 diabetes mellitus: Status: Acute (6) Bacterial skin infection of upper extremity: Status: Acute Subjective Subjective Interval history since last seen: pt seen and examined. the swelling has gone down, but the redness and pain is still present. no headaches. No CP or SOB. no productive cough. no dysuria. no leg pain or swelling. no mouth pain. no diarrhea. no fever/chills. minimal pain. Exam Chest Chest: no crepitus Resp Effort & Inspection: normal respiratory effort and able to speak in complete sentences Auscultation: clear to auscultation bilaterally Skin Other: lesion 1x1cm w/ associated 1x1cm ring of redness and swelling. serous drainage. motor and gross sensation are intact. Objective Objective Clinical Data: Vital Signs Temperature 36.6 C 12/17/19 15:30 Temperature Source Tympanic 12/17/19 15:30 Pulse 71 12/17/19 15:30 Pulse Rhythm Regular 12/16/19 12:58 Respiratory Rate 18 12/17/19 15:30 Respiratory Effort Non-Labored 12/17/19 08:37 Respiratory Depth Normal 12/17/19 08:37 Respiratory Pattern Normal 12/17/19 08:37 Blood Pressure 137/79 12/17/19 15:30 Pulse Oximetry 96 12/17/19 15:30 Oxygen Delivery Method Room Air 12/17/19 15:30 Oxygen Flow Rate 0 12/17/19 15:30 Pain Level 0 12/17/19 15:30 Intake & Output 12/17/19 12/18/19 12/18/19 23:59 11:59 23:59 Intake Total 250 / 1030 Balance 250 / 1030 Intake: Oral 250 / 780 Laboratory Results WBC 6.57 k/cumm (4.4-10.8) 12/15/19 14:05 RBC 4.68 m/cumm (4.50-6.00) 12/15/19 14:05 Hgb 13.7 g/dL (13.5-17.5) 12/15/19 14:05 Hct 39.8 % (40.0-50.0) L 12/15/19 14:05 MCV 85.0 fL (80-95) 12/15/19 14:05 MCH 29.3 pg (27.0-33.0) 12/15/19 14:05 MCHC 34.4 g/dL (32.0-36.0) 12/15/19 14:05 RDW 12.7 % (11.8-14.1) 12/15/19 14:05 Plt Count 265 x1000/uL (130-400) 12/15/19 14:05 MPV 11.2 fL (8.0-11.0) H 12/15/19 14:05 Sodium 141 mmol/L (136-145) 12/15/19 14:05 Potassium 3.9 mmol/L (3.5-5.1) 12/15/19 14:05 Chloride 103 mmol/L (98-107) 12/15/19 14:05 Carbon Dioxide 27.0 mmol/L (21.0-32.0) 12/15/19 14:05 Anion Gap 11.0 mmol/L (3-11) 12/15/19 14:05 BUN 18 mg/dL (7-18) 12/15/19 14:05 Creatinine 1.18 mg/dL (0.70-1.30) 12/17/19 13:37 Estimated GFR/1.73 m2 >= 60.00 (mL/min/1.73m2) 12/17/19 13:37 Glucose 109 mg/dL (74-106) H 12/15/19 14:05 Calcium 10.1 mg/dL (8.5-10.1) 12/15/19 14:05 Total Bilirubin 0.9 mg/dL (0.2-1.0) 12/15/19 14:05 AST 17 U/L (15-37) 12/15/19 14:05 ALT 23 U/L (16-63) 12/15/19 14:05 Alkaline Phosphatase 65 U/L (46-116) 12/15/19 14:05 C-Reactive Protein 0.62 mg/dL (0.0-0.3) H 12/17/19 13:37 Total Protein 8.0 g/dL (6.4-8.2) 12/15/19 14:05 Albumin 3.7 g/dL (3.4-5.0) 12/15/19 14:05 Vancomycin Trough 14.0 ug/mL (10.0-20.0) 12/17/19 13:37 Gram Stain Cancelled 12/15/19 13:48 Anaerobic Culture Cancelled 12/15/19 13:48 Anaerob Organism Srce Cancelled 12/15/19 13:48 Anaer Org ID Rpt Status Cancelled 12/15/19 13:48
== END 2019-12-17 16:48 | disposition home or self-care (01) | DRG 603 ==
PROVIDERS: Admitting Provider Surgery; PCP Family Medicine; Visit Provider Surgery
DX: L02.512 Cutaneous abscess of left hand (principal); B95.62 Methicillin resistant Staphylococcus aureus infection as the cause of diseases classified elsewhere; I10 Essential (primary) hypertension; E11.9 Type 2 diabetes mellitus without complications; F17.210 Nicotine dependence, cigarettes, uncomplicated; Z86.14 Personal history of Methicillin resistant Staphylococcus aureus infection
CPT/HCPCS: 36415; 80053; 85027; 87070; 99221; 99222; 99231; 99232; 99238; NC; 73130; 80202; 82565; 86140; 87075; 87205; 94660; J1650

== ENCOUNTER → 2019-12-19 11:02 | Outpatient (BNVA) | payer MEDICARE, OTHER, SELFPAY | PROVIDERS: PCP Family Medicine; Referring Provider Family Medicine; Visit Provider Surgery | DX: R69 Illness, unspecified (principal) | CPT/HCPCS: 99212 ==

== ENCOUNTER 2020-01-14 12:38 | Inpatient (IN) | payer MEDICARE, OTHER, SELFPAY ==
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
[2020-01-14 13:35] VITALS: BP 133/73; PULSE 58; RESP 16; TEMP 36.1; O2SAT 95
[2020-01-14 14:27] LABS: Abs Immature Grans 0.01 k/cumm (0.0-0.09); Absolute Lymphocyte Count 2.02 k/cumm (1.2-3.4); Absolute Monocyte Count 0.72 k/cumm (0.11-0.7); Absolute Neutrophil Count 4.68 k/cumm (1.2-6.7); Eosinophils % 1.3; HCT 39.4 % (40.0-50.0); HGB 13.4 g/dL (13.5-17.5); Immature Grans % 0.1 %; Lymphocytes % 26.8; Mean Corpuscular Hemoglobin 29.6 pg (27.0-33.0); Mean Platelet Volume 11.4 fL (8.0-11.0); Monocytes % 9.6; Neutrophils % 62.2; Platelet Count 208 x1000/uL (130-400); RBC 4.53 m/cumm (4.50-6.00); White Blood Cell Count 7.53 k/cumm (4.4-10.8)
[2020-01-14 14:37] LABS: C-Reactive Protein 0.36 mg/dL (0.0-0.3)
[2020-01-14 14:39] LABS: Prothrombin Time 10.5 sec (9.3-11.0)
[2020-01-14 14:40] LABS: ALT 29 U/L (16-63); AST 21 U/L (15-37); Albumin 4.3 g/dL (3.4-5.0); Alkaline Phosphatase 55 U/L (46-116); BUN 21 mg/dL (7-18); Bilirubin, Total 1.2 mg/dL (0.2-1.0); CREATININE 0.96 mg/dL (0.70-1.30); Chloride 103 mmol/L (98-107); Glucose 111 mg/dL (74-106); Potassium 4.1 mmol/L (3.5-5.1); Sodium 139 mmol/L (136-145); Total Protein 7.9 g/dL (6.4-8.2)
[2020-01-14 14:43] LABS: Hemoglobin A1C 6.4 % (3.8-5.6)
[2020-01-14] MEDS: Bupivacaine 0.25% Pres-Free 30 ML VIAL (15:27)
[2020-01-14] MEDS: VANCOMYCIN 1,000 MG in Normal Saline 250 ML 166.67 MG IV (15:27)
[2020-01-14] MEDS: Bupivacaine LIPOSOME/PF 133 MG/10 ML VIAL IJ (15:28)
--- NOTE | 2020-01-14 15:29 | ROE_ITS ---
Date of service: 01/14/20 Time of Service: 15:29 Operative Note Operative Note DATE OF PROCEDURE: 01/14/20 PRE-OP DIAGNOSIS: scrotal abscess POST-OP DIAGNOSIS: other (infected sebacous cyst scrotum) PROCEDURE: Incision and drainage of abscess and drain palcement SURGEON: Marli Cool ANESTHESIA: MAC and local (10cc exparel mixed 50/50 with 0.25 % Bupivocaine) ESTIMATED BLOOD LOSS: 5 PATHOLOGY: none sent COMPLICATIONS: None Patient was transported to: floor Patient's condition: stable Indications: Mr. Carlin is a pleasant 70 year old male who has known MRSA who has had 2 previous abscesses that needed drainage. He was seen in the office today by Dr. Mathew with a new abscess in his scrotum. No fevers or chills. Patient was admitted to the ;[facility] for antibiotics and I&D. Risks, benefits and complications were reviewed with him and he wished to proceed. No guarantees were given or implied. Findings: Infected sebaceous cyst of the scrotum Small infected hair follicle of the lower abdomen Procedure Description: After informed consent was obtained the patient was taken to the operating room and placed in a supine position. Monitors were applied and a timeout was done. The patient's name, date of , procedure type and site, antibiotic given were reviewed. Fire risk was assessed. Next the patient was given MAC sedation and once sedated and comfortable his scrotum and lower abdomen were prepped and draped in a strict sterile surgical fashion with iodine. Next the above local anesthetic was injected around and under the abscess on his scrotum as well as around a small red area on his lower abdomen. Using a 15 blade an incision was made around the abscess where it was erupting through the scrotal wall dissection was taken down with cautery until the skin was removed no purulent discharge was really noted. There was some caseous material identified. The caseous material was cultured both for anaerobic and aerobic cultures. Using a hemostat I probed the area to make sure that there was not a deeper pocket of purulent discharge but I could not find any pockets. Plain packing was then gently packed into the open wound. Next the small red area on his lower abdomen was inspected it felt hard to the touch so a small incision was made with a 15 blade. There was a hair follicle noted which was removed. No purulent discharge was identified. The skin was cleaned and dried around both the lower abdominal wall incision as well as the scrotal incision. A dry dressing with Tegaderm was applied to the lower abdominal wall incision. An ABD pad was applied over the scrotum and mesh panties were placed on the patient. At this point the patient was woken up and moved back onto his [place] for phase 2 recovery. Sponge, instrument and needle counts were correct at the end of the case. The patient tolerated the procedure and there were no immediate complications.
[2020-01-14 16:12] VITALS: BP 141/71; PULSE 65; RESP 16; TEMP 36; O2SAT 98
[2020-01-14 20:45] VITALS: BP 135/63; PULSE 64; RESP 18; TEMP 36.4; O2SAT 97
[2020-01-15] MEDS: VANCOMYCIN 1,000 MG in Normal Saline 250 ML 166.67 MG IV ×2 (05:58→17:35)
[2020-01-15] MEDS: Normal Saline Flush 10 ML SYR IVP (06:00)
[2020-01-15] MEDS: Normal Saline 1,000 ML 30 ML IV (06:00)
[2020-01-15 06:07] VITALS: BP 126/73; PULSE 66; RESP 18; TEMP 36.3; O2SAT 96
[2020-01-15 08:28] VITALS: BP 123/64; PULSE 59; RESP 15; TEMP 36.2; O2SAT 99
[2020-01-15 08:32] LABS: COVID-19 RT-PCR UVMMC Result Negative (Negative)
[2020-01-15] MEDS: Insulin Glargine 300 UNITS/3 ML PEN 10 UNITS SC (08:44)
[2020-01-15] MEDS: metFORMIN C.R. 500 MG TABCR 1000 MG PO (08:45)
[2020-01-15] MEDS: Lisinopril 10 MG TAB PO (08:45)
--- NOTE | 2020-01-15 09:23 | PGE_ITS ---
Date of Service Date of service: 01/15/20 Time of Service: 09:24 Assessment and Plan Assessment and plan (1) Infected sebaceous cyst of skin: Status: Acute Assessment and plan: wash w/ soap and water bid apply bactroban BID scrotal support keep clean and dry -local wound care -has midline -waiting to see what cultures show. if MSSA will send home po abx if mrsa- will need IV vanco (2) Type II diabetes mellitus: Status: Acute (3) MRSA colonization: Status: Acute (4) Hx MRSA infection: Status: Acute Subjective Subjective Interval history since last seen: Pt is doing well. no headaches. No CP or SOB. no productive cough. no dysuria. no leg pain or swelling. Minimal pain at sx site. less red than yest. appears to have been infected david cyst from the time of surgery Exam Const General: cooperative, healthy appearing, comfortable, no acute distress, well developed and well groomed Nutritional Appearance: average body habitus and well nourished Orientation: alert, awake and oriented x3 HENMT Head: normal to inspection, normocephalic and atraumatic Ears: hearing grossly normal bilaterally and external ears normal General nose exam: external nose normal Face and sinus: normal facial exam and sinuses nontender Mouth: oral mucosae normal, lip normal, tongue normal and moist mucous membranes Teeth and gingiva: dentition normal Eyes General: appearance normal, both eyes and all related structures Conjunctivae: conjunctivae normal Sclera: sclerae normal Pupils: PERRL Neck Neck: normal visual inspection and full ROM Chest Chest: normal inspection of the chest Resp Effort & Inspection: normal respiratory effort, able to speak in complete sentences, no cough, no nasal flaring, not tachypneic and no use of accessory muscles Auscultation: clear to auscultation bilaterally, no rales, no rhonchi and no wheezes Cardio Jugular venous pressure: no JVD Rate: regular rate Rhythm: regular rhythm GI Inspection: normal to inspection, no edema and non-distended Palpation: soft, no masses, nontender and No ascites Auscultation: normal bowel sounds Skin Other: wound edges c/d/i. minimal drainage- serous. minimal [id number] Neuro General: patient alert, patient oriented x3, oriented, gait normal, moves all extremities, no focal motor deficits and CN's II-XI intact bilaterally Cognition: normal cognition Speech: speech normal Gait: normal gait Motor: muscle tone normal throughout Extrem General: normal to inspection, full ROM and no clubbing, cyanosis or edema Psych Appearance: grossly normal and well kempt Mental Status: mental status grossly normal Speech and Movement: speech and movement normal Affect: normal affect Objective Objective Clinical Data: Abnormal lab results 01/14/20 01/14/20 01/14/20 Range/Units 13:50 13:50 13:50 Hgb 13.4 L (13.5-17.5) g/dL Hct 39.4 L (40.0-50.0) % MPV 11.4 H (8.0-11.0) fL Absolute Monocytes 0.72 H (0.11-0.7) k/cumm BUN 21 H (7-18) mg/dL Glucose 111 H (74-106) mg/dL Hemoglobin A1c 6.4 H (3.8-5.6) % Total Bilirubin 1.2 H (0.2-1.0) mg/dL C-Reactive Protein (0.0-0.3) mg/dL 01/14/20 Range/Units 13:50 Hgb (13.5-17.5) g/dL Hct (40.0-50.0) % MPV (8.0-11.0) fL Absolute Monocytes (0.11-0.7) k/cumm BUN (7-18) mg/dL Glucose (74-106) mg/dL Hemoglobin A1c (3.8-5.6) % Total Bilirubin (0.2-1.0) mg/dL C-Reactive Protein 0.36 H (0.0-0.3) mg/dL Vital Signs Temperature 36.2 C L 01/15/20 08:28 Temperature Source Tympanic 01/15/20 08:28 Pulse 59 L 01/15/20 08:28 Pulse Rhythm Regular 01/15/20 02:50 Respiratory Rate 15 01/15/20 08:28 Respiratory Effort Non-Labored 01/15/20 02:50 Respiratory Depth Normal 01/15/20 02:50 Respiratory Pattern Normal 01/15/20 02:50 Blood Pressure 123/64 01/15/20 08:28 Pulse Oximetry 99 01/15/20 08:28 Oxygen Delivery Method Room Air 01/15/20 08:28 Oxygen Flow Rate 0 01/15/20 08:28 Pain Level 0 01/15/20 08:28 Comment 01/14/20 13:18 Intake & Output 01/14/20 01/14/20 01/15/20 11:59 23:59 11:59 Intake Total Output Total 700 / 700 Balance -680 / -680 Weight 77.111 kg Intake: IV Output: Urine 700 / 700 Other: Urine Color Yellow [place] Urine Appearance Clear Clear Urine Odor Normal Normal Comment pt reports voiding in the toilet; not observed Voiding Methods Toilet Urinal Laboratory Results WBC 7.53 k/cumm (4.4-10.8) 01/14/20 13:50 RBC 4.53 m/cumm (4.50-6.00) 01/14/20 13:50 Hgb 13.4 g/dL (13.5-17.5) L 01/14/20 13:50 Hct 39.4 % (40.0-50.0) L 01/14/20 13:50 MCV 87.0 fL (80-95) 01/14/20 13:50 MCH 29.6 pg (27.0-33.0) 01/14/20 13:50 MCHC 34.0 g/dL (32.0-36.0) 01/14/20 13:50 RDW 13.0 % (11.8-14.1) 01/14/20 13:50 Plt Count 208 x1000/uL (130-400) 01/14/20 13:50 MPV 11.4 fL (8.0-11.0) H 01/14/20 13:50 Immature Gran % 0.1 % 01/14/20 13:50 Neutrophils % 62.2 01/14/20 13:50 Lymphocytes % 26.8 01/14/20 13:50 Monocytes % 9.6 01/14/20 13:50 Eosinophils % 1.3 01/14/20 13:50 Basophils % 0.0 01/14/20 13:50 Absolute Neutrophils 4.68 k/cumm (1.2-6.7) 01/14/20 13:50 Absolute Lymphocytes 2.02 k/cumm (1.2-3.4) 01/14/20 13:50 Absolute Monocytes 0.72 k/cumm (0.11-0.7) H 01/14/20 13:50 Absolute Eosinophils 0.10 k/cumm (0.0-0.7) 01/14/20 13:50 Absolute Basophils 0.00 k/cumm (0.0-0.2) 01/14/20 13:50 PT 10.5 sec (9.3-11.0) 01/14/20 13:50 INR 1.0 (0.9-1.1) 01/14/20 13:50 Sodium 139 mmol/L (136-145) 01/14/20 13:50 Potassium 4.1 mmol/L (3.5-5.1) 01/14/20 13:50 Chloride 103 mmol/L (98-107) 01/14/20 13:50 Carbon Dioxide 28.0 mmol/L (21.0-32.0) 01/14/20 13:50 Anion Gap 8.0 mmol/L (3-11) 01/14/20 13:50 BUN 21 mg/dL (7-18) H 01/14/20 13:50 Creatinine 0.96 mg/dL (0.70-1.30) 01/14/20 13:50 Estimated GFR/1.73 m2 >= 60.00 (mL/min/1.73m2) 01/14/20 13:50 Glucose 111 mg/dL (74-106) H 01/14/20 13:50 Hemoglobin A1c 6.4 % (3.8-5.6) H 01/14/20 13:50 Calcium 10.0 mg/dL (8.5-10.1) 01/14/20 13:50 Total Bilirubin 1.2 mg/dL (0.2-1.0) H 01/14/20 13:50 AST 21 U/L (15-37) 01/14/20 13:50 ALT 29 U/L (16-63) 01/14/20 13:50 Alkaline Phosphatase 55 U/L (46-116) 01/14/20 13:50 C-Reactive Protein 0.36 mg/dL (0.0-0.3) H 01/14/20 13:50 Total Protein 7.9 g/dL (6.4-8.2) 01/14/20 13:50 Albumin 4.3 g/dL (3.4-5.0) 01/14/20 13:50 COVID-19 PCR Negative (Negative) 01/14/20 14:00 Nasopharyn COVID-19 PCR Not Applicable 01/14/20 14:00 Ref Test Perform Site [place] [facility] 01/14/20 14:00
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
--- NOTE | 2020-01-15 15:28 | PDOC.CMDIS ---
- If Service Date Differs Date of service: 01/15/20 Time of Service: 15:50 LACE Index Scoring Tool - Questions: Length of Stay (in days): 2 Acuity (Admit via E.D.?): No Comorbidities: Diabetes w/o Complication E.D. Visits: 2 - Answers: Total Score: 5 Risk of Readmission: Low Risk Care Management Discharge Reason for Hospitalization: Infected sebaceous cyst of skin Discharge Plan: Say will return home after his IV abx dose this afternoon. He will return to the Infusion room at [facility] to complete his 7 day course of IV abx, twice a day. His s/o will drive him home via private vehicle. He will follow up with his PCP as recommended. Patient/Family Education Needs: Review discharge instructions regarding activity levels and medications, discussion of self care needs including ask me three. Services Needed at Discharge: Infusion Therapy (Infusion room 2x/day)
[2020-01-15 16:17] VITALS: BP 112/66; PULSE 61; RESP 16; TEMP 36.6; O2SAT 99
== END 2020-01-15 20:10 | disposition home or self-care (01) | DRG 728 ==
PROVIDERS: Admitting Provider Surgery; PCP Family Medicine; Visit Provider Surgery
PROC: 0V9500Z Drainage of Scrotum with Drainage Device, Open Approach (ICD-10-PCS; CPT 55100; principal; 2020-01-14 15:00)
DX: N49.2 Inflammatory disorders of scrotum (principal); Z16.29 Resistance to other single specified antibiotic; Z16.19 Resistance to other specified beta lactam antibiotics; L72.3 Sebaceous cyst; L98.8 Other specified disorders of the skin and subcutaneous tissue; B95.62 Methicillin resistant Staphylococcus aureus infection as the cause of diseases classified elsewhere; Z22.322 Carrier or suspected carrier of Methicillin resistant Staphylococcus aureus; I10 Essential (primary) hypertension; E11.9 Type 2 diabetes mellitus without complications; Z86.14 Personal history of Methicillin resistant Staphylococcus aureus infection; Z79.4 Long term (current) use of insulin
CPT/HCPCS: 55100; 11400; 36410; 76942; 80053; 87040; 87077; 87081; 99222; 99239; NC; U0003; 83036; 85025; 85610; 86140; 87070; 87075; 87186; 87205; J2001; J2704

== ENCOUNTER 2020-01-21 01:47 | Outpatient (RCR) | payer OTHER, SELFPAY ==
[2020-01-16] MEDS: VANCOMYCIN 1,000 MG in Normal Saline 250 ML 166.667 MG IVPB (06:00)
--- NOTE | 2020-01-16 08:00 | DI.US_ITS ---
EXAM: US UPPER EXTREMITY VENOUS RT CLINICAL HISTORY: RULE OUT DVT. TECHNIQUE: Ultrasound examination of the right upper extremity venous system(s) is performed using g rayscale, color-flow, and spectral Doppler analysis. COMPARISON: US US OR ANESTHESIA from 01/14/2020 FINDINGS: The right internal jugular, axillary, subclavian, cephalic, basilic, brachial, radial, and ulnar vein s are patent without evidence of thrombosis. There is fluid seen in the subcutaneous tissues in the upper extremity. The patient's right upper extremity catheter is not visualized sonographically. IMPRESSION: 1. No DVT. 2. Edema in the subcutaneous tissues of the right upper extremity. 3. The patient has a right upper extremity catheter which is not visualized sonographically. Evaluat ion of catheter placement should be should be considered. 4. Findings were discussed with Dr. Forde on the date of the examination. DATA REPOSITORY:
[2020-01-16] MEDS: Hyaluronidase 150 UNITS VIAL 50 UNITS IJ (12:15)
[2020-01-16 18:15] LABS: CREATININE 1.23 mg/dL (0.70-1.30); Estimated GFR 58.01 (mL/min/1.73m2); Vancomycin, Trough 18.3 ug/mL (10.0-20.0)
[2020-01-16] MEDS: VANCOMYCIN 1,000 MG in Normal Saline 250 ML 167 MG IVPB (18:24)
[2020-01-16] MEDS: Normal Saline Flush 10 ML SYR IVP (20:15)
[2020-01-17] MEDS: VANCOMYCIN 1,000 MG in Normal Saline 250 ML 167 MG IVPB ×2 (05:59→18:02)
[2020-01-17] MEDS: Normal Saline Flush 10 ML SYR IVP ×2 (06:00→18:04)
[2020-01-18] MEDS: VANCOMYCIN 1,000 MG in Normal Saline 250 ML 167 MG IVPB ×2 (05:55→18:00)
[2020-01-18] MEDS: Normal Saline Flush 10 ML SYR IVP ×2 (05:56→19:45)
[2020-01-19] MEDS: Normal Saline Flush 10 ML SYR IVP ×2 (05:57→17:30)
[2020-01-19] MEDS: VANCOMYCIN 1,000 MG in Normal Saline 250 ML 167 MG IVPB ×4 (05:57→20:15)
[2020-01-19 17:50] LABS: Vancomycin, Trough 16.7 ug/mL (10.0-20.0)
[2020-01-20] MEDS: VANCOMYCIN 1,000 MG in Normal Saline 250 ML 167 MG IVPB ×2 (05:55→18:19)
[2020-01-20] MEDS: Normal Saline Flush 10 ML SYR IVP ×2 (06:00→18:20)
[2020-01-21] MEDS: VANCOMYCIN 1,000 MG in Normal Saline 250 ML 166.7 MG IVPB (05:53)
[2020-01-21] MEDS: Normal Saline Flush 10 ML SYR IVP (05:53)
== END 2020-01-25 23:59 | disposition home or self-care (01) ==
LOC: INF 01:47
PROVIDERS: PCP Family Medicine; Visit Provider Surgery
DX: N49.2 Inflammatory disorders of scrotum (principal); L72.3 Sebaceous cyst; L03.818 Cellulitis of other sites
CPT/HCPCS: 36410; 36415; 36592; 96365; 96366; 99195; 80202; 82565; 93971; J3470

== ENCOUNTER → 2020-05-14 02:10 | Outpatient (CLI) | payer OTHER, BC, SELFPAY ==
[2020-05-14 08:41] LABS: Calculated LDL 65 mg/dL (<100); Cholesterol 129 mg/dL (<200); HDL Cholesterol 51 mg/dL (40-60); Triglyceride 68 mg/dL (<150)
[2020-05-17 12:39] LABS: Testosterone, Total 668 ng/dL (240-950)
== END ==
PROVIDERS: PCP Family Medicine; Visit Provider Family Medicine
DX: E11.9 Type 2 diabetes mellitus without complications (principal); N52.9 Male erectile dysfunction, unspecified
CPT/HCPCS: 36415; 80061; 84403

== ENCOUNTER → 2020-09-07 09:56 | Outpatient (CLI) | payer OTHER, SELFPAY ==
[2020-09-08 16:34] LABS: COVID-19 RT-PCR UVMMC Result Negative (Negative)
== END ==
PROVIDERS: PCP Family Medicine; Visit Provider Family Medicine
DX: Z20.822 Contact with and (suspected) exposure to COVID-19 (principal)
CPT/HCPCS: U0003

== ENCOUNTER → 2020-09-10 04:15 | Outpatient (CLI) | payer OTHER, BC, SELFPAY ==
[2020-09-11 16:39] LABS: COVID-19 RT-PCR Result Positive (Negative)
[2020-09-11 17:39] LABS: COVID-19 RT-PCR UVMMC Result Positive (Negative)
== END ==
PROVIDERS: PCP Family Medicine; Visit Provider Family Medicine
DX: Z20.822 Contact with and (suspected) exposure to COVID-19 (principal)
CPT/HCPCS: U0003

== ENCOUNTER 2021-08-14 14:05 | Emergency (ER) | payer OTHER, SELFPAY ==
[2021-08-14 14:08] VITALS: BP 172/92; PULSE 69; RESP 18; TEMP 37.1; O2SAT 96
--- NOTE | 2021-08-14 14:15 | DI.RAD_ITS ---
Exam(s) XR THUMB RT EXAM: XR THUMB RT CLINICAL HISTORY: Pain after table saw injury. TECHNIQUE: 2D digital imaging was performed. COMPARISON: CR XR HAND LT COMPLETE from 12/15/2019 FINDINGS: BONES: No acute fracture is present. No bony destructive lesion is seen. JOINTS: No dislocation present. Degenerative changes at the interphalangeal joint, metacarpophalange al joint and 1st carpal metacarpal joint. SOFT TISSUE: Soft tissue defect with gauze overlying. No foreign body. IMPRESSION: Soft tissue injury. No fracture or foreign body. DATA REPOSITORY: RADIATION DOSE DELIVERED:
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
[2021-08-14] MEDS: Tetanus & Diphtheria Tox,ADULT 0.5 ML VIAL IM (14:26)
[2021-08-14] MEDS: Cephalexin 500 MG CAP, 2 CAPS/BTL PO (14:50)
--- NOTE | 2021-08-14 15:42 | DI.VRAD_ITS ---
PROCEDURE INFORMATION: Exam: XR Right Finger(s) Exam date and time: 08/14/2021 2:18 PM Age: 71 years old Clinical indication: Injury or trauma; Other: Cut tip of thumb with table saw; Wound; Finger; Right TECHNIQUE: Imaging protocol: XR Right fingers. Views: Minimum 2 views. COMPARISON: US UPPER EXTREMITY VENOUS RT 01/16/2020 9:25 AM FINDINGS: Bones/joints: Unremarkable. Soft tissues: Soft tissue deformity of the distal tuft of the 1st digit noted. IMPRESSION: Soft tissue injury. No evidence for bony abnormality. Dictated and Authenticated by: Eusebia Choudhury MD. Ordering:LÓPEZ Mccarty MD
--- NOTE | 2021-08-14 17:16 | NUR.NOTE ---
Faxed Ortho referral to [facility] for a right thumb avulsion/table saw injury
== END 2021-08-14 17:57 | disposition home or self-care (01) ==
PROVIDERS: Emergency Provider Emergency Medicine; PCP Nurse Practitioner Family
DX: S61.011A Laceration without foreign body of right thumb without damage to nail, initial encounter (principal); W29.8XXA Contact with other powered hand tools and household machinery, initial encounter
CPT/HCPCS: 29125; 90471; 99283; 73140

== ENCOUNTER → 2021-08-22 10:08 | Outpatient (BNVA) | payer OTHER, SELFPAY | PROVIDERS: PCP Nurse Practitioner Family; Referring Provider Student in an Organized Health Care Education/Training Program | DX: S61.101A Unspecified open wound of right thumb with damage to nail, initial encounter (principal); W31.2XXA Contact with powered woodworking and forming machines, initial encounter | CPT/HCPCS: 99213 ==

== ENCOUNTER → 2021-09-05 09:55 | Outpatient (BNVA) | payer OTHER, SELFPAY | PROVIDERS: PCP Nurse Practitioner Family; Referring Provider Nurse Practitioner Family | DX: S61.101A Unspecified open wound of right thumb with damage to nail, initial encounter (principal); W31.2XXA Contact with powered woodworking and forming machines, initial encounter | CPT/HCPCS: 99213 ==

== ENCOUNTER 2021-09-13 02:37 | Outpatient (CLI) | payer OTHER, SELFPAY ==
[2021-09-13 12:16] LABS: ALT 27 U/L (16-63); AST 15 U/L (15-37); Albumin 4.1 g/dL (3.4-5.0); Alkaline Phosphatase 68 U/L (46-116); Anion Gap 8.9 mmol/L (3-11); BUN 17 mg/dL (7-18); Bilirubin, Total 0.8 mg/dL (0.2-1.0); CO2 27.1 mmol/L (21.0-32.0); CREATININE 1.1 mg/dL (0.70-1.30); Calcium 9.4 mg/dL (8.5-10.1); Chloride 106 mmol/L (98-107); Glucose 112 mg/dL (74-106); Potassium 4.2 mmol/L (3.5-5.1); Sodium 142 mmol/L (136-145); Total Protein 7.2 g/dL (6.4-8.2)
== END 2021-09-13 02:38 | disposition home or self-care (01) ==
LOC: LBO 02:39
PROVIDERS: PCP Nurse Practitioner Family; Visit Provider Nurse Practitioner Family
DX: I10 Essential (primary) hypertension (principal)
CPT/HCPCS: 36415; 80053

== ENCOUNTER 2022-01-11 11:34 | Emergency (ER) | payer OTHER, SELFPAY ==
[2022-01-11 12:01] VITALS: BP 196/96; PULSE 50; RESP 16; TEMP 36; O2SAT 98
[2022-01-11] MEDS: Lidocaine 2% Jelly 6 ML SYR (12:20)
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
[2022-01-11 12:37] LABS: Abs Immature Grans 0.04 10^3/uL (0.0-0.06); Absolute Basophil Count 0.01 10^3/uL (0.0-0.2); Absolute Lymphocyte Count 0.45 10^3/uL (1.2-3.4); Absolute Monocyte Count 0.22 10^3/uL (0.1-0.8); Absolute Neutrophil Count 7.01 10^3/uL (1.2-6.7); Basophils % 0.1; HCT 40.1 % (40.0-50.0); HGB 13.5 g/dL (13.5-17.5); Immature Grans % 0.5; Lymphocytes % 5.8; MCH 29.3 pg (27.0-33.0); MCHC 33.7 % (32.0-36.0); MCV 87 fL (80-95); MPV 11.3 fL (8.0-11.0); Monocytes % 2.8; Neutrophils % 90.8; Platelet Count 150 10^3/uL (130-400); RDW 12.2 % (11.8-14.1); WBC 7.73 10^3/uL (4.4-10.8)
[2022-01-11 12:55] LABS: ALT 23 U/L (16-63); AST 19 U/L (15-37); Albumin 4.3 g/dL (3.4-5.0); Alkaline Phosphatase 61 U/L (46-116); Anion Gap 10.5 mmol/L (3-11); BUN 19 mg/dL (7-18); Bilirubin, Total 1.6 mg/dL (0.2-1.0); CO2 23.5 mmol/L (21.0-32.0); CREATININE 1.1 mg/dL (0.70-1.30); Calcium 8.9 mg/dL (8.5-10.1); Chloride 103 mmol/L (98-107); Glucose 203 mg/dL (74-106); Sodium 137 mmol/L (136-145); Total Protein 7.5 g/dL (6.4-8.2)
[2022-01-11] MEDS: Ondansetron O.D.T. 4 MG TABEF (13:19)
[2022-01-11 13:25] LABS: Bilirubin Negative (Negative); Blood Trace-intact (Negative); Clarity Clear (Clear); Glucose Negative (Negative); Ketones 15 mg/dL (Negative); Leukocyte Esterase Negative (Negative); Nitrite Negative (Negative); Specific Gravity 1.025 (1.005-1.025); Urobilinogen 0.2 EU/dL (Up TO 0.2); pH 5.5 (5-8)
[2022-01-11 13:33] LABS: Bacteria Negative HPF (Negative); C & S Indicated? No; Casts Negative LPF (Negative); Crystals Negative HPF (Negative); Epithelial Cells Rare HPF (Negative); Mucus Trace (Negative); WBC 0-2 HPF (0-5)
[2022-01-11 13:36] VITALS: BP 138/86; PULSE 72; RESP 18; TEMP 37; O2SAT 98
[2022-01-11 13:37] VITALS: RESP 17
--- NOTE | 2022-01-11 14:04 | NUR.NOTE ---
Nursing Note: PT INFO FAXED TO UROLOGY FOR FOLLOW UP WHEN AVAILABLE FOR URINARY RETENTION. ALAN, ED
[2022-01-11 14:36] VITALS: BP 132/84; PULSE 68; RESP 18; TEMP 36.6; O2SAT 99
[2022-01-11] MEDS: Tamsulosin 0.4 MG CAPCR PO (14:38)
== END 2022-01-11 14:27 | disposition home or self-care (01) ==
PROVIDERS: Emergency Provider Student in an Organized Health Care Education/Training Program; PCP Nurse Practitioner Family
DX: R33.8 Other retention of urine (principal); R11.2 Nausea with vomiting, unspecified
CPT/HCPCS: 36415; 51702; 80053; 99283; 81003; 81015; 85025

== ENCOUNTER 2022-01-25 21:21 | Outpatient (REF) | payer OTHER, SELFPAY | END 2022-01-25 21:22 | disposition home or self-care (01) | LOC: LBN 21:21 | PROVIDERS: PCP Nurse Practitioner Family; Visit Provider Nurse Practitioner Gerontology | DX: R33.8 Other retention of urine (principal) | CPT/HCPCS: 87077; 87086; 87186 ==

== ENCOUNTER 2022-05-08 03:48 | Outpatient (CLI) | payer OTHER, SELFPAY ==
[2022-05-08 18:37] LABS: PSA, Screening 10.8 ng/mL (<=6.5)
== END 2022-05-08 03:49 | disposition home or self-care (01) ==
LOC: LBO 03:48
PROVIDERS: PCP Nurse Practitioner Family; Visit Provider Nurse Practitioner Gerontology
DX: N13.8 Other obstructive and reflux uropathy (principal); N40.1 Benign prostatic hyperplasia with lower urinary tract symptoms; R33.8 Other retention of urine; Z12.5 Encounter for screening for malignant neoplasm of prostate
CPT/HCPCS: 36415; 84153

== ENCOUNTER 2022-07-31 03:56 | Outpatient (CLI) | payer OTHER, SELFPAY ==
[2022-07-31 17:49] LABS: PSA, Screening 8.5 ng/mL (<=6.5)
== END 2022-07-31 03:57 | disposition home or self-care (01) ==
LOC: LBO 03:56
PROVIDERS: PCP Nurse Practitioner Family; Visit Provider Nurse Practitioner Gerontology
DX: N13.8 Other obstructive and reflux uropathy (principal); N40.1 Benign prostatic hyperplasia with lower urinary tract symptoms; R97.20 Elevated prostate specific antigen [PSA]; Z12.5 Encounter for screening for malignant neoplasm of prostate
CPT/HCPCS: 36415; 84153

== ENCOUNTER 2022-11-06 03:12 | Outpatient (CLI) | payer OTHER, SELFPAY ==
[2022-11-06 08:59] LABS: CREATININE 1.2 mg/dL (0.70-1.30); Estimated GFR 63.85 (mL/min/1.73m2); Potassium 4.2 mmol/L (3.5-5.1)
== END 2022-11-06 03:13 | disposition home or self-care (01) ==
LOC: LBO 03:13
PROVIDERS: PCP Nurse Practitioner Family; Visit Provider Nurse Practitioner Gerontology
DX: I10 Essential (primary) hypertension (principal); N13.8 Other obstructive and reflux uropathy; N40.1 Benign prostatic hyperplasia with lower urinary tract symptoms; R97.20 Elevated prostate specific antigen [PSA]; Z12.5 Encounter for screening for malignant neoplasm of prostate
CPT/HCPCS: 36415; 84153; 82565; 84132

== ENCOUNTER 2023-07-05 02:21 | Outpatient (CLI) | payer MEDICARE, OTHER, SELFPAY ==
[2023-07-05 20:38] LABS: PSA, Screening 10.3 ng/mL (<=6.5)
== END 2023-07-05 02:22 | disposition home or self-care (01) ==
PROVIDERS: PCP Nurse Practitioner Family; Visit Provider Nurse Practitioner Gerontology
DX: N40.1 Benign prostatic hyperplasia with lower urinary tract symptoms (principal); N13.8 Other obstructive and reflux uropathy; R97.20 Elevated prostate specific antigen [PSA]
CPT/HCPCS: 36415; 84153

== ENCOUNTER → 2023-07-12 10:10 | Outpatient (BNVA) | payer MEDICARE, OTHER, SELFPAY | PROVIDERS: PCP Nurse Practitioner Family; Referring Provider Nurse Practitioner Family; Visit Provider Nurse Practitioner Gerontology | DX: N40.1 Benign prostatic hyperplasia with lower urinary tract symptoms (principal); N13.8 Other obstructive and reflux uropathy; R33.8 Other retention of urine; R97.20 Elevated prostate specific antigen [PSA] | CPT/HCPCS: 51798; 99214 ==

== ENCOUNTER 2023-08-02 14:24 | Observation (INO) | payer MEDICARE, OTHER, SELFPAY ==
[2023-08-02] VITALS (19 sets, daily range): BP systolic 59–180; BP diastolic 42–73; PULSE 52–81; RESP 16–25; TEMP 35.7–36.7; TEMPC 36.7; O2SAT 94–98; BMI 31.4
[2023-08-02] MEDS: Lactated Ringers 1,000 ML 80 ML IV ×2 (08:40→14:40)
[2023-08-02] MEDS: Normal Saline Flush 10 ML SYR IV (08:56)
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
[2023-08-02] MEDS: ceFAZolin 2 GM/50 ML BAG IVPB (11:22)
[2023-08-02] MEDS: Lidocaine 2% Jelly 11 ML SYR (11:28)
--- NOTE | 2023-08-02 12:10 | PROST_PTH ---
PATIENT: Say Carlin LOC: U#:[id number] AGE/SX: 73/M ROOM: [id number] RE08/02/[address]: Az Salgado MD : 1950 BED: A DIS: 08/03/2023 SPEC #: [id number] RECD: 08/02/23 17:40 STATUS: SOURachel REQ #: [id number] OSMAN: 08/02/23 12:[address]: Az Salgado DEPT: Surgical Specimen RECD BY: Kitty Mcmanus ENTERED: 08/02/23 17:40 SP TYPE: PROST OTHR DR: Jace Reynolds, TRAV Tissues: 1 - PROSTATE CURRETTINGS Procedures: GROSS AND MICRO LEVEL 4 Comments: [id number]
[2023-08-02] MEDS: ePHEDrine 25 MG/5 ML Syringe IVP ×2 (14:20→14:35)
--- NOTE | 2023-08-02 14:24 | W.PM.OP ---
Date of service: 08/02/23 Time of Service: 14:24 Operative Note Operative Note DATE OF PROCEDURE: 08/02/23 PRE-OP DIAGNOSIS: Urinary Retention POST-OP DIAGNOSIS: same PROCEDURE: Cystoscopy with TURP SURGEON: Az Salgado ANESTHESIA TYPE: Local By Surgeon and General LMA/ETT Refer to Anesthesia Record ESTIMATED BLOOD LOSS: 500 PATHOLOGY: other (Prostate chips) COMPLICATIONS: None Patient was transported to: PACU Patient's condition: stable Implants: 24 Citizen Of [place] Coude tipped irrigating catheter with 60 cc sterile water in balloon Indications: This is a 73-year-old gentleman who has a history of lower urinary tract symptoms. He also has a history of an elevated PSA. He has had several episodes of urinary retention requiring catheterization. On 1 occasion, he was taught to perform CIC. His symptoms for the most part had been managed with alpha blockers. As his symptoms progressed, he elected not to use 5 alpha reductase inhibitors and presents for surgical treatment instead. Multiple treatment options were discussed with this gentleman and he elected to move ahead with cystoscopy and TURP using bipolar cautery Findings: Markedly enlarged prostate with significant median lobe and lateral lobe enlargement Procedure Description: The patient was given preoperative antibiotics and brought to the operating room on 08/02/2023. After successful induction of general anesthesia, he was placed in the dorsal lithotomy position. His genitalia was prepped and draped. 2% Xylocaine jelly was instilled into the urethra to act as a local anesthetic. A 24 Citizen [place] resectoscope sheath was passed through the urethra into the bladder. The urethra and bladder were inspected with the 30 degree lens. The pendulous, bulbar and membranous urethra appeared normal with no strictures. The prostatic urethra showed a markedly enlarged prostate with a significant median lobe and lateral lobes. The bladder neck was then entered and the bladder mucosa was inspected. The bladder was moderately trabeculated. No papillary or nodular lesions were seen. Using an UUCUN resectoscope and bipolar cautery, we began our procedure by performing transurethral resection of the large median lobe. Once the median lobe was resected, we switched to a vaporization button and cauterized the base of the resection site. We then switched back to the resection loop and performed transurethral resection of the lateral lobes. We again switched back to the vaporization button for his additional vaporization and cauterization of the prostatic fossa. All resected tissue was evacuated and sent to pathology for permanent section. At the completion of the procedure, the bladder was filled with irrigant. Under direct vision, I passed a guidewire through the lumen of the resectoscope and removed the resectoscope sheath. I then passed a 24 Citizen [place] hematuria catheter over the wire. We inflated the catheter balloon with 60 cc of sterile water. The catheter was then placed on traction. Hand irrigation and continuous bladder irrigation were begun. Traction was released once the irrigant became transparent. The patient tolerated this procedure well with no complications.
[2023-08-02 14:52] LABS: HCT 29.5 % (40.0-50.0)
--- NOTE | 2023-08-02 15:08 | W.ANESPOSTOP ---
Postoperative Evaluation Date, Time and Location Date Performed: 08/02/23 Time Performed: 15:08 Patient Location: PACU Vital Signs Most Recent Imported Vital Signs: Most Recent Vital Signs Temp Pulse Resp BP Pulse Ox 36.7 C 72 21 106/53 L 95 08/02/23 14:45 08/02/23 14:45 08/02/23 14:45 08/02/23 14:45 08/02/23 14:45 Most Recent Manually Entered Vital Signs: Adult Blood Pressure: 104/57 Heart Rate: 69 Respirations: 18 Oxygen Saturation (%): 98 Temperature (C): 36.7 C Pain Score (0-10 Scale): 0 Pain Score Most Recent Pain Score: Most Recent Pain Score Pain Level 1 08/02/23 14:45 Assessment Mental Status: Awake (Alert & Oriented to Patient Baseline) Airway and Respiratory Function: Patent airway with normal (patient baseline) respiratory exam Cardiovascular Function: Hemodynamically Stable Hydration Status: Adequately Hydrated Nausea & Vomiting: No Nausea or Vomiting Pain: Pt. Denies Any Pain Peripheral Nerve Block: Patient did not receive a nerve block Postoperative Comments:: headed to floor
[2023-08-02] MEDS: Docusate Sodium 100 MG CAP PO (20:36)
[2023-08-02] MEDS: ceFAZolin 1 GM/50 ML BAG IVPB (20:37)
[2023-08-02] MEDS: Lactated Ringers 1,000 ML 125 ML IV (22:58)
[2023-08-03 00:22] VITALS: BP 132/69; PULSE 72; RESP 16; TEMP 36.5; O2SAT 95
[2023-08-03] MEDS: ceFAZolin 1 GM/50 ML BAG IVPB ×2 (04:08→11:59)
[2023-08-03] MEDS: Lactated Ringers 1,000 ML 125 ML IV (06:34)
[2023-08-03 06:46] LABS: Abs Immature Grans 0.06 10^3/uL (0.0-0.06); Absolute Basophil Count 0.01 10^3/uL (0.0-0.2); Absolute Monocyte Count 0.92 10^3/uL (0.1-0.8); Basophils % 0.1; HCT 25.7 % (40.0-50.0); HGB 8.6 g/dL (13.5-17.5); Immature Grans % 0.5; Lymphocytes % 8.8; MCH 29.3 pg (27.0-33.0); MCHC 33.5 % (32.0-36.0); MCV 87 fL (80-95); MPV 11.5 fL (8.0-11.0); Monocytes % 7.7; Neutrophils % 82.9; Platelet Count 160 10^3/uL (130-400); RBC 2.94 10^6/uL (4.36-5.78); RDW 12.4 % (11.8-14.1); RDW-SD 39.7 fL
[2023-08-03 06:49] LABS: Absolute Lymphocyte Count 1.06 10^3/uL (1.2-3.4); Absolute Neutrophil Count 9.95 10^3/uL (1.2-6.7)
[2023-08-03 07:11] LABS: Anion Gap 5.6 mmol/L (3-11); BUN 22 mg/dL (7-18); CO2 26.4 mmol/L (21.0-32.0); CREATININE 1.3 mg/dL (0.70-1.30); Calcium 8.4 mg/dL (8.5-10.1); Chloride 109 mmol/L (98-107); Estimated GFR 57.65 (mL/min/1.73m2); Glucose 174 mg/dL (74-106); Potassium 4.5 mmol/L (3.5-5.1); Sodium 141 mmol/L (136-145)
--- NOTE | 2023-08-03 07:50 | W.PM.PROGNOT ---
Date of Service Date of service: 08/03/23 Time of Service: 07:50 Assessment and Plan Assessment and plan (1) BPH w urinary obs/LUTS: Status: Acute Assessment and plan: He is doing actively well after a TURP of a very large prostate. I will plan on stopping his bladder irrigation this morning. We will also discontinue his IV fluids. We will get him up and walking. As long as he does not need bladder irrigation restarted, we can plan to discharge him later today. We will send him home with his catheter in place and he will come in for a voiding trial next week. Subjective Subjective Interval history since last seen: He had a comfortable night with no episodes of clot retention. He is able to tolerate oral medications and nutrition Initially when he arrived on the floor, his blood pressure was a bit low and his temperature was low. Both improved overnight. He has no lightheadedness or dizziness. He is not short of breath and has no chest pain. Exam Narrative Exam Narrative: He appears comfortable while His vital signs are documented elsewhere His continuous bladder irrigation is clear He is awake and alert Objective Last Vital Signs Temp 36.5 C 08/03/23 00:22 Pulse 72 08/03/23 00:22 Resp 16 08/03/23 00:22 BP 132/69 08/03/23 00:22 Pulse Ox 95 08/03/23 00:22 Laboratory Results - last 24 hr 08/02/23 08/02/23 08/03/23 09:20 14:37 06:01 WBC 12.00 H RBC 2.94 L Hgb 10.0 L 8.6 L Hct 29.5 L 25.7 L MCV 87 MCH 29.3 MCHC 33.5 RDW 12.4 Plt Count 160 MPV 11.5 H Immature Gran % 0.5 Neutrophils % 82.9 Lymphocytes % 8.8 Monocytes % 7.7 Eosinophils % 0.0 Basophils % 0.1 Nucleated RBC % 0.0 Absolute Neutrophils 9.95 H Absolute Lymphocytes 1.06 L Absolute Monocytes 0.92 H Absolute Eosinophils 0.00 Absolute Basophils 0.01 Sodium 141 Potassium 4.5 Chloride 109 H Carbon Dioxide 26.4 Anion Gap 5.6 BUN 22 H Creatinine 1.3 Est GFR (CKD-EPI 2020) 57.65 Glucose 174 H Calcium 8.4 L Patient ABO/Rh B Negative Antibody Screen NEGATIVE Time Spent with Patient Time Spent with Patient: <25 minutes Time was spent: other
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
[2023-08-03 08:03] VITALS: BP 110/65; PULSE 56; RESP 17; TEMP 36.7; O2SAT 95
[2023-08-03] MEDS: metFORMIN C.R. 500 MG TABCR 1000 MG PO (08:55)
[2023-08-03] MEDS: Normal Saline Flush 10 ML SYR IV (11:58)
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
--- NOTE | 2023-08-03 13:32 | CHAPLAIN ---
I had a brief visit with Say. He explained that he's being discharged and he was waiting for the paperwork so he could return home to [place]. His (?) was with him.
--- NOTE | 2023-08-03 17:34 | PDOC.CMPRO ---
Date of service: 08/03/23 Time of Service: 17:34 Care Management Progress Note Progress Note Text Progress Note Text: Say was admitted on 08/02/23 through Day surgery for a Cysto and TURP. He did well post-operatively and will be discharged home today. He has a victor catheter which will remain in place until next week. He will follow up with Urology next week for catheter removal and with Dr. Salgado in about 2 weeks.
== END 2023-08-03 14:35 | disposition home or self-care (01) ==
LOC: MS 15:25
PROVIDERS: Admitting Provider Urology; PCP Nurse Practitioner Family; Visit Provider Urology
PROC: 0VT08ZZ Resection of Prostate, Via Natural or Artificial Opening Endoscopic (ICD-10-PCS; CPT 52601; principal; 2023-08-02 10:45)
DX: N40.1 Benign prostatic hyperplasia with lower urinary tract symptoms (principal); N13.8 Other obstructive and reflux uropathy; E11.319 Type 2 diabetes mellitus with unspecified diabetic retinopathy without macular edema; Z79.84 Long term (current) use of oral hypoglycemic drugs; Z79.899 Other long term (current) drug therapy; I10 Essential (primary) hypertension; M54.9 Dorsalgia, unspecified; G89.29 Other chronic pain
CPT/HCPCS: 52601; 36415; 80048; 86850; 86900; 86901; 88305; 96361; 96365; 96366; 85014; 85018; 85025; G0378; J0131; J0690; J1100; J2001; J2371; J2405; J2704

== ENCOUNTER → 2023-08-06 07:43 | Outpatient (BNVA) | payer MEDICARE, OTHER, SELFPAY | PROVIDERS: PCP Nurse Practitioner Family; Referring Provider Nurse Practitioner Family; Visit Provider Urology ==

== ENCOUNTER → 2023-08-17 12:33 | Outpatient (BNVA) | payer MEDICARE, OTHER, SELFPAY | PROVIDERS: PCP Nurse Practitioner Family; Referring Provider Nurse Practitioner Family; Visit Provider Urology | DX: Z48.816 Encounter for surgical aftercare following surgery on the genitourinary system (principal); N40.1 Benign prostatic hyperplasia with lower urinary tract symptoms; N13.8 Other obstructive and reflux uropathy; R97.20 Elevated prostate specific antigen [PSA] ==

== ENCOUNTER 2023-08-31 14:09 | Inpatient (IN) | payer OTHER, MEDICARE, SELFPAY ==
[2023-08-31] VITALS (11 sets, daily range): BP systolic 127–164; BP diastolic 61–79; PULSE 63–97; RESP 16–27; TEMP 36.7–36.8; O2SAT 96–99
--- NOTE | 2023-08-31 14:15 | RT.EKG_ITS ---
APPROVED REPORT Exam: Resting ECG Reason for Exam: syncope Patient Location: E HR:92 bpm ECG Measurements Heart Rate 92 AXIS RI 216 P 40 QRSd 107 QRS -31 QT 353 T 48 QTc 439 Conclusion Sinus rhythm...normal P axis, V-rate 60- 99 Multiple ventricular premature complexes...V complexes w/ short R-R intervls Prolonged RI interval...RI >215, V-rate 91-120 Left ventricular hypertrophy...multiple LVH criteria
[2023-08-31 14:27] LABS: Abs Immature Grans 0.02 10^3/uL (0.0-0.06); Absolute Basophil Count 0.01 10^3/uL (0.0-0.2); Absolute Eosinophil Count 0.16 10^3/uL (0.0-0.7); Absolute Lymphocyte Count 1.66 10^3/uL (1.2-3.4); Absolute Neutrophil Count 3.34 10^3/uL (1.2-6.7); Basophils % 0.2; Eosinophils % 2.8; HGB 9.5 g/dL (13.5-17.5); Immature Grans % 0.4; Lymphocytes % 29.2; MCH 28.6 pg (27.0-33.0); MCHC 32.8 % (32.0-36.0); MCV 87 fL (80-95); MPV 10.5 fL (8.0-11.0); Monocytes % 8.8; Neutrophils % 58.6; Platelet Count 211 10^3/uL (130-400); RBC 3.32 10^6/uL (4.36-5.78); RDW 12.8 % (11.8-14.1); RDW-SD 40.3 fL; WBC 5.69 10^3/uL (4.4-10.8)
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
[2023-08-31 14:40] LABS: INR 1.1 (0.9-1.1); Prothrombin Time 11.1 sec (9.1-11.1)
[2023-08-31 14:59] LABS: ALT 18 U/L (16-63); AST 14 U/L (15-37); Albumin 3.5 g/dL (3.4-5.0); Alkaline Phosphatase 57 U/L (46-116); Anion Gap 10.8 mmol/L (3-11); BUN 27 mg/dL (7-18); Bilirubin, Total 0.4 mg/dL (0.2-1.0); CO2 25.2 mmol/L (21.0-32.0); CREATININE 1.6 mg/dL (0.70-1.30); Calcium 9.3 mg/dL (8.5-10.1); Chloride 105 mmol/L (98-107); Creatine Kinase 47 U/L (39-308); Estimated GFR 44.93 (mL/min/1.73m2); Glucose 187 mg/dL (74-106); Magnesium 1.7 mg/dL (1.8-2.4); NT-proBNP 239 pg/mL (<300); Sodium 141 mmol/L (136-145); TSH 3.14 uIU/mL (0.36-3.74); Troponin I < 50 ng/L (<or=60)
[2023-08-31 15:08] LABS: D-Dimer 971 ng/mlFEU (<500)
--- NOTE | 2023-08-31 15:12 | DI.CT_ITS ---
Exam(s) CT CHEST PE CTA EXAM: CT CHEST PE CTA CLINICAL HISTORY: SYNCOPE. TECHNIQUE: Imaging Protocol: Axial CT angiography was performed with multi-slice acquisition and mu lti-planar reconstructions as well as axial, coronal and sagittal MIP reconstructions. CONTRAST MATERIAL: Intravenous: Omnipaque 350 Contrast volume:100 ml COMPARISON: No exams were available for comparison FINDINGS: Pulmonary Arteries: No evidence of filling defect to suggest pulmonary emboli. Tracheobronchial tree: Patent where visualized. Mediastinum and Adela: No dominant adenopathy or fluid collection. Pulmonary parenchyma: No consolidation or dominant measurable mass. Pleura: No effusion or pneumothorax. Heart: The heart is dilated. No coronary artery calcifications are seen. Aorta: Thoracic aorta non-dilated. No aneurysm. No dissection. Upper abdomen: Unremarkable. Bones: Unremarkable for age. Tubes, Catheters, and Lines: None Soft tissues: Unremarkable. IMPRESSION: No evidence of pulmonary embolism or other acute abnormality in the chest.. RADIATION DOSE DELIVERED: !Error Total DLP DATA REPOSITORY: All CT scans at this facility are submitted to the National Radiology Data Registry (NRDR) Dose Index Registry (DIR) with the [employer] (A[employer]). RADIATION OPTIMIZATION: All CT scans at this facility use at least one of these dose optimization te chniques: automated exposure control; mA and/or kV adjustment per patient size (includes targeted exa ms where dose is matched to clinical indication); or iterative reconstruction.
[2023-08-31] MEDS: Normal Saline 1,000 ML 1000 ML IV (15:30)
[2023-08-31] MEDS: Omnipaque 350 MG/ML 100 ML BTL IJ (15:34)
[2023-08-31] MEDS: MAGNESIUM SULFATE 2 GM/50 ML BAG IVPB (16:12)
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
[2023-08-31] MEDS: Metoprolol 25 MG TAB 12.5 MG PO (16:43)
[2023-08-31 18:19] LABS: Troponin I < 50 ng/L (<or=60)
[2023-08-31 19:47] LABS: MRSA PCR Negative (Negative)
[2023-08-31] MEDS: Normal Saline Flush 10 ML SYR IVP (19:49)
[2023-08-31] MEDS: Lactated Ringers 1,000 ML 80 ML IV (19:50)
[2023-08-31] MEDS: Heparin 5,000 UNITS/ML VIAL 5000 UNITS SC (21:44)
[2023-08-31] MEDS: Metoprolol 12.5 MG TAB PO (21:45)
[2023-09-01] VITALS (7 sets, daily range): BP systolic 122–147; BP diastolic 68–78; PULSE 58–68; RESP 16–19; TEMP 36.3–36.7; O2SAT 92–97
[2023-09-01] MEDS: Metoprolol 12.5 MG TAB PO ×4 (04:27→22:46)
[2023-09-01] MEDS: Heparin 5,000 UNITS/ML VIAL 5000 UNITS SC ×3 (05:08→22:46)
[2023-09-01 06:46] LABS: Abs Immature Grans 0.02 10^3/uL (0.0-0.06); Absolute Basophil Count 0.01 10^3/uL (0.0-0.2); Absolute Eosinophil Count 0.15 10^3/uL (0.0-0.7); Absolute Lymphocyte Count 1.64 10^3/uL (1.2-3.4); Absolute Monocyte Count 0.31 10^3/uL (0.1-0.8); Absolute Neutrophil Count 2.61 10^3/uL (1.2-6.7); Basophils % 0.2; Eosinophils % 3.2; HCT 27.2 % (40.0-50.0); HGB 8.9 g/dL (13.5-17.5); Immature Grans % 0.4; Lymphocytes % 34.6; MCH 28.4 pg (27.0-33.0); MCHC 32.7 % (32.0-36.0); MCV 87 fL (80-95); MPV 10.5 fL (8.0-11.0); Monocytes % 6.5; Neutrophils % 55.1; Platelet Count 192 10^3/uL (130-400); RBC 3.13 10^6/uL (4.36-5.78); RDW 12.8 % (11.8-14.1); RDW-SD 40.3 fL; WBC 4.74 10^3/uL (4.4-10.8)
[2023-09-01 07:06] LABS: ALT 17 U/L (16-63); AST 14 U/L (15-37); Albumin 3.2 g/dL (3.4-5.0); Alkaline Phosphatase 51 U/L (46-116); Anion Gap 8.9 mmol/L (3-11); BUN 21 mg/dL (7-18); Bilirubin, Total 0.7 mg/dL (0.2-1.0); CO2 27.1 mmol/L (21.0-32.0); CREATININE 1.2 mg/dL (0.70-1.30); Calcium 9.1 mg/dL (8.5-10.1); Chloride 106 mmol/L (98-107); Estimated GFR 63.46 (mL/min/1.73m2); Glucose 103 mg/dL (74-106); Potassium 4.5 mmol/L (3.5-5.1); Sodium 142 mmol/L (136-145); Total Protein 6.3 g/dL (6.4-8.2)
[2023-09-01] MEDS: Normal Saline Flush 10 ML SYR IVP ×2 (09:46→23:35)
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
--- NOTE | 2023-09-01 15:52 | PGE_ITS ---
Date of Service Date of service: 09/01/23 Time of Service: 09:30 Assessment and Plan Assessment and plan (1) SVT (supraventricular tachycardia): Status: Chronic Assessment and plan: Initially converted with Adenosine IV in the field Will continue metoprolol tartrate 12.5 mg orally every 6 hours; one burst of SVT 1-minute long so far and self converting to SR, asymptomatic at the time. Will transition metoprolol succinate in the morning if no adjustment needed Continue telemetry Echocardiogram on Sunday (2) Syncope: Status: Chronic Assessment and plan: As above Reviewing CBC, observing what is most likely dilutional decreased in H&H but patient was anemic on arrival, but did not and still does not warrant blood transfusion unless he becomes symptomatic (3) Hypomagnesemia: Status: Acute Assessment and plan: IV mag replacement in ED, will recheck in AM (4) ABRAM (acute kidney injury): Status: Acute Assessment and plan: LR at 80 cc/hour for 1 liter baseline Cr. 1.2, 1.3 in 07/2023 now 1.6. 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 Diabetes mellitus complication status: without complication Qualified Code(s): E11.9 - Type 2 diabetes mellitus without complications (7) Hypertension: Status: Chronic Assessment and plan: Still holdind Lisinopril Patient needs beta pieter due to SVT episodes Continue metoprolol Will reconsider a lesser dose of lisinopril when stable d/t comorbidities such as DM II and HTN and if patient had proteinuria Qualifiers: Hypertension type: essential hypertension Qualified Code(s): I10 - Essential (primary) hypertension (8) On deep vein thrombosis (DVT) prophylaxis: Status: Acute Assessment and plan: Continue Heparin SC CBC in AM (9) Hx MRSA infection: Assessment and plan: discontinue contact precautions: MRSA PCR results negative (10) Discharge planning issues: Status: Resolved Assessment and plan: CM to f/u on discharge needs if arise; none at this time Cardiology referral on discharge Discussed with Dr. Castrejon Subjective Subjective Interval history since last seen: Patient reports feeling better, eating well drinking well, and sleeping somewhat well last night. The patient denies change in vision, night sweats, fever, palpitation, chest pain, lightheadedness, dizziness, shortness of breath, nausea, vomiting, diarrhea, abdominal discomfort or dysuria.The patient also denies constipation but had no bowel movement today yet. Exam Narrative Exam Narrative: Constitutional The patient is sitting in recliner, no acute distress HENMT: Head normocephalic, no lymphadenopathy. Facial structures with normal appearance Eyes: Well aligned, Neck: Normal ROM, no JVD Neuro:alert and oriented to self x 4 Chest:Chest is symmetrical and normal appearance Resp: Normal respiratory pattern, clear lung bilaterally Cardio: Tele SR HR ,regular rhythm, S1 S2 distant, no murmur, positive pulses to all 4 extremities. GI: Abdomen is not distended, soft and non tender, bowel sounds are present : Negative Costovertebral angle tenderness Back/spine/Pelvis: No back tenderness, normal alignment Integumentary: No skin lesions or rash Extremities: strength 5/5 to bilateral lower and upper extremities Psych: RASS 0, congruent mood and normal affect. Objective Last Vital Signs Temp 36.6 C 09/01/23 15:33 Pulse 66 09/01/23 15:33 Resp 18 09/01/23 15:33 BP 122/72 09/01/23 15:33 Pulse Ox 94 09/01/23 15:33 Laboratory Results - last 24 hr 08/31/23 08/31/23 09/01/23 17:50 18:15 06:30 WBC 4.74 RBC 3.13 L Hgb 8.9 L Hct 27.2 L MCV 87 MCH 28.4 MCHC 32.7 RDW 12.8 Plt Count 192 MPV 10.5 Immature Gran % 0.4 Neutrophils % 55.1 Lymphocytes % 34.6 Monocytes % 6.5 Eosinophils % 3.2 Basophils % 0.2 Nucleated RBC % 0.0 Absolute Neutrophils 2.61 Absolute Lymphocytes 1.64 Absolute Monocytes 0.31 Absolute Eosinophils 0.15 Absolute Basophils 0.01 Sodium 142 Potassium 4.5 Chloride 106 Carbon Dioxide 27.1 Anion Gap 8.9 BUN 21 H Creatinine 1.2 Est GFR (CKD-EPI 2020) 63.46 Glucose 103 Calcium 9.1 Magnesium 2.0 Total Bilirubin 0.7 AST 14 L ALT 17 Alkaline Phosphatase 51 Troponin I < 50 Total Protein 6.3 L Albumin 3.2 L MRSA (TEM-PCR) Negative PAWSS Pt Consumed Any Amount of Alcohol Within the Last 30 days OR had positive [place] Upon Admission: No Time Spent with Patient Time Spent with Patient: >50 minutes Time was spent: preparing to see the patient(eg.review tests), ordering medications,tests, procedures, referring, communicating with other health care assistant, indepentently interpreting results, counseling the patient and care coordination
[2023-09-02 03:29] VITALS: BP 103/56; PULSE 61; RESP 18; TEMP 36.5; O2SAT 96
[2023-09-02] MEDS: Heparin 5,000 UNITS/ML VIAL 5000 UNITS SC ×3 (04:53→22:23)
[2023-09-02] MEDS: Metoprolol 12.5 MG TAB PO ×4 (04:53→22:23)
[2023-09-02 06:49] LABS: Abs Immature Grans 0.02 10^3/uL (0.0-0.06); Absolute Basophil Count 0.01 10^3/uL (0.0-0.2); Absolute Eosinophil Count 0.25 10^3/uL (0.0-0.7); Absolute Lymphocyte Count 1.72 10^3/uL (1.2-3.4); Absolute Monocyte Count 0.38 10^3/uL (0.1-0.8); Absolute Neutrophil Count 2.59 10^3/uL (1.2-6.7); Basophils % 0.2; HCT 27.8 % (40.0-50.0); HGB 9.2 g/dL (13.5-17.5); Immature Grans % 0.4; Lymphocytes % 34.6; MCH 28.5 pg (27.0-33.0); MCHC 33.1 % (32.0-36.0); MCV 86 fL (80-95); MPV 10.6 fL (8.0-11.0); Monocytes % 7.6; Neutrophils % 52.2; Platelet Count 200 10^3/uL (130-400); RBC 3.23 10^6/uL (4.36-5.78); RDW 12.8 % (11.8-14.1); WBC 4.97 10^3/uL (4.4-10.8)
[2023-09-02 07:36] LABS: Anion Gap 8.4 mmol/L (3-11); BUN 19 mg/dL (7-18); CO2 25.6 mmol/L (21.0-32.0); CREATININE 1.3 mg/dL (0.70-1.30); Chloride 108 mmol/L (98-107); Estimated GFR 57.65 (mL/min/1.73m2); Ferritin 59 ng/mL (26-388); Glucose 107 mg/dL (74-106); Magnesium 1.8 mg/dL (1.8-2.4); Potassium 4.3 mmol/L (3.5-5.1); Sodium 142 mmol/L (136-145)
[2023-09-02 07:38] LABS: Folate > 20.0 ng/mL (8.6-20.0)
[2023-09-02 07:43] VITALS: BP 135/75; PULSE 62; RESP 20; TEMP 36.2; O2SAT 94
[2023-09-02 07:48] LABS: Vitamin B12 282 pg/mL (193-986)
[2023-09-02 08:00] LABS: Iron 51 ug/dL (65-175); Total Iron Binding Capacity 305 ug/dL (250-450); Transferrin Sat 17 % (20-55)
[2023-09-02] MEDS: Cyanocobalamin 500 MCG TAB 1000 MCG PO (09:48)
[2023-09-02] MEDS: Cyanocobalamin 1000 MCG/ML VIAL IM/SC (09:48)
[2023-09-02] MEDS: Normal Saline Flush 10 ML SYR IVP ×2 (09:49→22:45)
[2023-09-02 11:44] VITALS: BP 112/67; PULSE 61; RESP 16; TEMP 36.3; O2SAT 96
--- NOTE | 2023-09-02 15:09 | PGE_ITS ---
Date of Service Date of service: 09/02/23 Time of Service: 15:09 Assessment and Plan Assessment and plan (1) SVT (supraventricular tachycardia): Status: Chronic Assessment and plan: Initially converted with Adenosine IV in the field Will continue metoprolol tartrate 12.5 mg orally every 6 hours; one burst of SVT 1-minute long so far and self converting to SR, asymptomatic at the time. Will transition metoprolol succinate in the morning if no adjustment needed Continue telemetry no dysrhythmias overnight Echocardiogram on Sunday (2) Syncope: Status: Chronic Assessment and plan: As above (3) Hypomagnesemia: Status: Acute Assessment and plan: Repleted and normalized (4) ABRAM (acute kidney injury): Status: Acute Assessment and plan: Back at baseline after 1 L of normal saline baseline Cr. 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 use Qualified Code(s): E11.9 - Type 2 diabetes mellitus without complications (7) Hypertension: Status: Chronic Assessment and plan: Still holding Lisinopril Patient needs beta pieter due to SVT episodes Continue metoprolol Will reconsider a lesser dose of lisinopril when stable d/t comorbidities such as DM II and HTN and if patient had proteinuria Qualifiers: Hypertension type: essential hypertension Qualified Code(s): I10 - Essential (primary) hypertension (8) On deep vein thrombosis (DVT) prophylaxis: Status: Acute Assessment and plan: Continue Heparin SC CBC in AM (9) Hx MRSA infection: Assessment and plan: discontinue contact precautions: MRSA PCR results negative (10) Discharge planning issues: Status: Resolved Assessment and plan: CM to f/u on discharge needs if arise; none at this time Cardiology referral on discharge Discussed with Dr. Castrejon Subjective Subjective Interval history since last seen: no new c/o, eating and drinking well. bowels and bladder functioning well. Exam Const General: cooperative, healthy appearing, comfortable and no acute distress Nutritional Appearance: average body habitus Orientation: alert, awake and oriented x3 HENMT Head: normal to inspection, normocephalic and atraumatic Face and sinus: normal facial exam Mouth: oral mucosae normal Chest Chest: normal inspection of the chest Resp Effort & Inspection: normal respiratory effort Auscultation: clear to auscultation bilaterally Cardio Rate: regular rate Rhythm: regular rhythm GI Inspection: normal to inspection Palpation: soft Skin General skin exam: no rashes or lesions noted Neuro General: patient alert, patient awake, patient oriented x3 and no focal motor deficits Extrem General: normal to inspection and full ROM Objective Last Vital Signs Temp 36.3 C L 09/02/23 11:44 Pulse 61 09/02/23 11:44 Resp 16 09/02/23 11:44 BP 112/67 09/02/23 11:44 Pulse Ox 96 09/02/23 11:44 Laboratory Results - last 24 hr 09/02/23 09/02/23 05:35 06:20 WBC 4.97 RBC 3.23 L Hgb 9.2 L Hct 27.8 L MCV 86 MCH 28.5 MCHC 33.1 RDW 12.8 Plt Count 200 MPV 10.6 Immature Gran % 0.4 Neutrophils % 52.2 Lymphocytes % 34.6 Monocytes % 7.6 Eosinophils % 5.0 Basophils % 0.2 Nucleated RBC % 0.0 Absolute Neutrophils 2.59 Absolute Lymphocytes 1.72 Absolute Monocytes 0.38 Absolute Eosinophils 0.25 Absolute Basophils 0.01 Sodium 142 Potassium 4.3 Chloride 108 H Carbon Dioxide 25.6 Anion Gap 8.4 BUN 19 H Creatinine 1.3 Est GFR (CKD-EPI 2020) 57.65 Glucose 107 H Calcium 9.0 Magnesium 1.8 Iron 51 L TIBC 305 Transferrin % Sat 17 L Ferritin 59 Vitamin B12 Cancelled 282 Folate > 20.0 H PAWSS Pt Consumed Any Amount of Alcohol Within the Last 30 days OR had positive [place] Upon Admission: No Time Spent with Patient Time Spent with Patient: 35-49 minutes Time was spent: preparing to see the patient(eg.review tests), obtaining and/or reviewing separately otained hiistory, ordering medications,tests, procedures, indepentently interpreting results and counseling the patient
[2023-09-02 15:54] VITALS: BP 102/64; PULSE 62; RESP 18; TEMP 36.6; O2SAT 96
[2023-09-02 20:16] VITALS: BP 127/68; PULSE 60; RESP 18; TEMP 36.2; O2SAT 95
[2023-09-02 22:02] VITALS: BP 132/67; PULSE 65; RESP 18; TEMP 36.2; O2SAT 96
[2023-09-02] MEDS: Ferrous Sulfate 325 MG TAB PO (22:23)
[2023-09-03 03:17] VITALS: BP 128/70; PULSE 60; RESP 18; TEMP 36.8; O2SAT 95
[2023-09-03] MEDS: Heparin 5,000 UNITS/ML VIAL 5000 UNITS SC ×2 (05:11→14:04)
[2023-09-03] MEDS: Metoprolol 12.5 MG TAB PO ×2 (05:11→09:26)
[2023-09-03 07:03] LABS: Abs Immature Grans 0.01 10^3/uL (0.0-0.06); Absolute Basophil Count 0.02 10^3/uL (0.0-0.2); Absolute Eosinophil Count 0.18 10^3/uL (0.0-0.7); Absolute Lymphocyte Count 1.73 10^3/uL (1.2-3.4); Absolute Monocyte Count 0.44 10^3/uL (0.1-0.8); Absolute Neutrophil Count 3.28 10^3/uL (1.2-6.7); Basophils % 0.4; Eosinophils % 3.2; HGB 9.7 g/dL (13.5-17.5); Immature Grans % 0.2; Lymphocytes % 30.6; MCH 28.8 pg (27.0-33.0); MCHC 33.4 % (32.0-36.0); MCV 86 fL (80-95); MPV 10.8 fL (8.0-11.0); Monocytes % 7.8; Neutrophils % 57.8; Platelet Count 204 10^3/uL (130-400); RBC 3.37 10^6/uL (4.36-5.78); RDW 12.9 % (11.8-14.1); RDW-SD 40.2 fL; WBC 5.66 10^3/uL (4.4-10.8)
[2023-09-03 07:15] LABS: BUN 21 mg/dL (7-18); CREATININE 1.2 mg/dL (0.70-1.30); Calcium 9.2 mg/dL (8.5-10.1); Chloride 107 mmol/L (98-107); Estimated GFR 63.46 (mL/min/1.73m2); Glucose 110 mg/dL (74-106); Magnesium 1.8 mg/dL (1.8-2.4); Potassium 4.1 mmol/L (3.5-5.1); Sodium 142 mmol/L (136-145)
[2023-09-03 07:25] VITALS: BP 122/69; PULSE 63; RESP 17; TEMP 36.3; O2SAT 95
--- NOTE | 2023-09-03 08:00 | DI.US_ITS ---
APPROVED REPORT EXAM: Comprehensive 2D, Doppler, and color-flow Echocardiogram Patient Location: In-Patient Room/Bed: [address] Supervisor: Christofer Long RDCS (AE) Indications: syncope, svt Other Information Study Quality: Good Conclusion 1. Moderately dilated left atrium, other chambers normal 2.Mild concentric LVH,normal systolic function,EF 60-65%.Grade 1 diastolic dysfunction. 3. Anatomically normal valves.Mild AI,mild MR. 4. No intracardiac shunt. 5. No mpericardial effusion. Wall motion Left Ventricle The left ventricle is normal size. The left ventricular systolic function is normal. The left ventric ular ejection fraction is within the normal range. There is normal left ventricular wall thickness. T here is normal LV segmental wall motion. There is no ventricular septal defect visualized. LVEF is 60 -63%. Right Ventricle The right ventricle is normal size. Right ventricular systolic function is grossly normal. The RVSP i s 27.1 mmHg. Atria Left atrium is moderately to severely dilated. The right atrium size is normal. The interatrial septu m is intact with no evidence for an atrial septal defect. Aortic Valve The aortic valve is normal in structure. Aortic valve is trileaflet. There is no aortic valvular sten osis. Mild aortic regurgitation. Mitral Valve The mitral valve is normal in structure. No evidence of mitral valve stenosis. Mild mitral regurgitat ion. Tricuspid Valve The tricuspid valve is normal in structure. There is no tricuspid valve stenosis. Trace tricuspid reg urgitation. Pulmonic Valve The pulmonary valve is normal in structure. There is no pulmonic valvular stenosis. There is no pulmo yang valvular regurgitation. Great Vessels Aortic root is mildly dilated. The ascending aorta is mildly dilated. Aortic arch is not well visuali zed. IVC is normal in size and collapses >50% with inspiration. Pericardium There is no pericardial effusion. 2D Dimensions IVSD d PLAX 0.91 cm M: 0.6-1.2 Ao Root d 3.90 cm M: 3.1 - 3.7 LVPW d PLAX 0.86 cm M: 0.6 - 1.2 Ao Asc Diam d 3.83 cm M: 2.6 - 3.4 LVID d PLAX 5.79 cm M: 4.2 - 5.8 LVDs 3.90 cm M: 2.5 - 4.0 LV EF Teichholz 60.2 % FS 32.57 % LV EDV (Teich) 165.7 mL LV ESV (Teich) 66.0 mL Stroke Vol Index (Teich) 50.88 M-Mode TAPSE 2.24 cm (M/F) >1.7 Auto EF LV EDV A4C 153.5 mL LV EDV A2C 142.2 mL LV EDV BP 149.4 mL LV ESV A4C 59.6 mL LV ESV A2C 52.2 mL LV ESV BP 55.3 mL LVEF(%) A4C 61.2 % LVEF(%) A2C 63.3 % LVEF(%) BP 63.0 % LV SV A4C 94.0 ml LV SV A2C 90.1 ml LV SV BP 94.1 ml LV CO A4C 5.8 L/min LV CO A2C 5.3 L/min LV CO BP 5.5 L/min HR A4C 61.33 BPM HR A2C 59.02 BPM LV EDV Index (BP) LA Volume LA Length A4C 5.5 cm LA Length A2C 5.4 cm LA Area A4C s 25.21 cm2 LA Area A2C s 21.81 cm2 LA Vol A4C A-L 98.62 mL LA Vol A2C A-L 74.69 mL LA Vol Biplane A-L 86.3 mL LA Vol/BSA A4C A-L LA Vol/BSA A2C A-L LA Vol/BSA BP A-L 44.1 mL/m2 LA Vol A4C MOD 90.5 mL LA Vol A2C MOD 70.2 mL LA Vol BP MOD 79.5 mL RA Volume RA Area A4C 5.7 cm2 RA ESV A4C (A-L) 6.8mL RA Vol/BSA A4C A-L RA Length A4C 4.0 cm RA ESV A4C (MOD) 7.1mL LV Diastology MV E' medial 0.064 (>0.07 m/s) MV E Vmax 0.41 (0.4-1.3 m/s) MV E/E' MED 6.43 (<14) MV A Vmax 0.55 (0.4-1.3 m/s) MV E' lateral 0.068 (>0.1 m/s) E/A Ratio 0.7 MV E/E' LAT 6.05 (<14) MV E' Average 0.066 m/s MV E/E'(average) 6.23 Aortic Valve AoV Vmax 1.21 m/s LVOT Vmax 0.84 m/s AoV Peak Grad 28.1 mmHg LVOT Peak Grad 2.8 mmHg AoV Area (Vmax) 1.88 cm2 LVOT VTI 0.213 m AoV VTI 0.258 m LVOT Mean Grad 1.4 mmHg AoV Mean Jay Jay. 0.78 m/s LVOT SV 57.60 mL AoV Mean Grad 2.8 mmHg LVOT Diam s 1.85 cm AoV Area (VTI) 2.23 cm2 AV Regurg Peak Gr. 50.40 mmHg Velocity Ratio 0.69 AR Decel Crane 1.4m/sec2 AR DT 2565 msec AR PHT 744 msec AR Vmax 3.55 m/s Mitral Valve MV DT 289 (160-240 msec) Pulmonary Valve PV Vmax 1.00 (0.5-1.5 m/s) RVOT Vmax 0.69 m/s PV Peak Grad 4.0 mmHg RVOT Peak Gr. 1.9 mmHg PV Mean Jay Jay 0.69 m/s RVOT VTI 0.126 m PV Mean Grad 2.2 mmHg RVOT Mean Gr. 1.1 mmHg Tricuspid Valve RA Pressure 3.00 mmHg TR Vmax 2.45 m/s TR Peak Grad 24.0 mmHg RVSP (TR) 27.1 mmHg
[2023-09-03] MEDS: Normal Saline Flush 10 ML SYR IVP (09:26)
[2023-09-03] MEDS: Ferrous Sulfate 325 MG TAB PO (09:26)
[2023-09-03] MEDS: Cyanocobalamin 500 MCG TAB 1000 MCG PO (10:22)
[2023-09-03 11:23] VITALS: BP 122/70; PULSE 61; RESP 17; TEMP 36.4; O2SAT 96
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
--- NOTE | 2023-09-03 16:02 | CMDISCH_ITS ---
Date of service: 09/03/23 Time of Service: 16:02 LACE Index Scoring Tool Questions: Length of Stay (in days): 3 Was the patient admitted via the E.D.?: Yes E.D. Visits: 0 Answers: Total Score: 6 Risk of Readmission: Low Risk Care Management Discharge Plan Reason for Hospitalization: Syncope, SVT Discharge Plan: Say will return home with no additional services. Letter outlining DATA ENTRY SUPERVISOR recommendations that Say not return to work provided. Say will transport via private vehicle with his girlfriend Ladonna Mark. Patient/Family Education Needs: Review discharge instructions, discuss Ask Me Three. SDOH Health Related Social Needs: No Data to Display
== END 2023-09-03 16:32 | disposition home or self-care (01) | DRG 309 ==
LOC: ER 16:58 → MS 16:59
PROVIDERS: Nurse Practitioner Acute Care; Admitting Provider Internal Medicine; Emergency Provider Emergency Medicine; PCP Nurse Practitioner Family; Visit Provider Internal Medicine
DX: I47.10 Supraventricular tachycardia, unspecified (principal); N13.8 Other obstructive and reflux uropathy; N17.9 Acute kidney failure, unspecified; E83.42 Hypomagnesemia; R55 Syncope and collapse; I10 Essential (primary) hypertension; Z86.14 Personal history of Methicillin resistant Staphylococcus aureus infection; Z79.84 Long term (current) use of oral hypoglycemic drugs; N40.1 Benign prostatic hyperplasia with lower urinary tract symptoms; Z79.899 Other long term (current) drug therapy; G89.29 Other chronic pain; M54.9 Dorsalgia, unspecified; E11.319 Type 2 diabetes mellitus with unspecified diabetic retinopathy without macular edema; L60.3 Nail dystrophy; D50.9 Iron deficiency anemia, unspecified; V89.0XXA Person injured in unspecified motor-vehicle accident, nontraffic, initial encounter
CPT/HCPCS: 00123; 36415; 71275; 80048; 80053; 82550; 87641; 93005; 96365; 99285; 82607; 82728; 82746; 83540; 83550; 83735; 83880; 84443; 84484; 85025; 85379; 85610; 93010; 93306; 99223; 99233; 99238; J1644; J3420; J3475; J3490

== ENCOUNTER 2023-09-03 14:52 | Outpatient (CLI) | payer OTHER, MEDICARE, SELFPAY | END 2023-09-03 14:53 | disposition home or self-care (01) | LOC: CARDOPNVT 14:52 | PROVIDERS: PCP Nurse Practitioner Family; Visit Provider Nurse Practitioner Family | DX: R55 Syncope and collapse (principal) | CPT/HCPCS: 93270 ==

== ENCOUNTER → 2023-09-11 14:57 | Outpatient (BNVA) | payer MEDICARE, OTHER, SELFPAY | PROVIDERS: PCP Nurse Practitioner Family; Referring Provider Nurse Practitioner Family; Visit Provider Urology | DX: N40.1 Benign prostatic hyperplasia with lower urinary tract symptoms (principal); N13.8 Other obstructive and reflux uropathy; R97.20 Elevated prostate specific antigen [PSA] ==

== ENCOUNTER 2023-09-14 13:47 | Outpatient (CLI) | payer OTHER, MEDICARE, SELFPAY ==
--- NOTE | 2023-09-14 13:45 | RT.EKG_ITS ---
APPROVED REPORT Exam: Resting ECG Reason for Exam: baseline Patient Location: O HR:57 bpm ECG Measurements Heart Rate 57 AXIS ID 170 P 8 QRSd 107 QRS -31 QT 406 T 27 QTc 396 Conclusion Sinus rhythm...normal P axis, V-rate 50- 99 Atrial premature complexes...SV complexes w/ short R-R intvls Left ventricular hypertrophy...multiple LVH criteria I have reviewed and interpreted ECG and agree with software generated interpretation.
== END 2023-09-14 13:48 | disposition home or self-care (01) ==
LOC: DI.CARD 13:50
PROVIDERS: PCP Nurse Practitioner Family; Referring Provider Nurse Practitioner Family; Visit Provider Internal Medicine Interventional Cardiology
DX: I47.10 Supraventricular tachycardia, unspecified (principal)
CPT/HCPCS: 93010

== ENCOUNTER → 2023-09-14 13:47 | Outpatient (BNVA) | payer OTHER, MEDICARE, SELFPAY | PROVIDERS: PCP Nurse Practitioner Family; Referring Provider Nurse Practitioner Family; Visit Provider Internal Medicine Interventional Cardiology | CPT/HCPCS: 93005; 99213 ==

== ENCOUNTER 2023-10-08 07:59 | Outpatient (CLI) | payer OTHER, MEDICARE, SELFPAY ==
--- NOTE | 2023-10-08 10:08 | CER_ITS ---
Date of service: 10/08/23 Time of Service: 10:08 Cardiac Event Recorder Referring Provider:: Jace Reynolds Indications:: Supraventricular tachycardia Cardiac Event Note: This is a 30-day cardiac event monitor ordered for SVT Predominant rhythm was sinus. Average heart rate overall was 64. Minimum was 55, maximum 147 There were rare atrial and ventricular ectopic beats There were multiple episodes of supraventricular tachycardia bradycardia 160- 175, not clearly symptomatic. These generally lasted about a minute There was no atrial fibrillation. A strip labeled atrial fibrillation was sinus rhythm in the 90s There were no pauses greater than 3 seconds, no high-grade AV block There were no patient's symptoms
== END 2023-10-08 08:00 | disposition home or self-care (01) ==
LOC: CARDOPNVT 07:59
PROVIDERS: PCP Nurse Practitioner Family; Visit Provider Internal Medicine Cardiovascular Disease
DX: I47.10 Supraventricular tachycardia, unspecified (principal)
CPT/HCPCS: 93272

== ENCOUNTER → 2023-10-25 14:18 | Outpatient (CLI) | payer OTHER, MEDICARE, SELFPAY ==
--- NOTE | 2023-10-25 10:45 | DI.RAD_ITS ---
Exam(s) XR KNEE RT 3V AP,LAT,JASBIR EXAM: XR KNEE RT 3V AP,LAT,JASBIR CLINICAL HISTORY: right knee pain,[id number]. TECHNIQUE: 2D digital imaging was performed of the right knee. Three views obtained. AP, lateral an d PA tunnel views were obtained. COMPARISON: No exams were available for comparison FINDINGS: BONES: No acute fracture is present. No bony destructive lesion is seen. There is an osseous density medial to the patella which appears well corticated and old. JOINTS: There is mild narrowing of the medial femoral tibial joint. There are osteophyte seen at the posterior patella. There is a small joint effusion. SOFT TISSUE: Vascular calcifications are present. IMPRESSION: Mild degenerative changes of the knee. Small joint effusion. DATA REPOSITORY: RADIATION DOSE DELIVERED:
== END ==
PROVIDERS: PCP Nurse Practitioner Family; Visit Provider Nurse Practitioner Family
DX: M25.561 Pain in right knee (principal)
CPT/HCPCS: 73562

== ENCOUNTER 2024-06-17 11:30 | Outpatient (CLI) | payer OTHER, MEDICARE, SELFPAY ==
[2024-06-17 18:51] LABS: PSA, Diagnostic 2.5 ng/mL (<=6.5)
== END 2024-06-17 11:31 | disposition home or self-care (01) ==
LOC: LBO 11:30
PROVIDERS: PCP Nurse Practitioner Family; Visit Provider Urology
DX: R97.20 Elevated prostate specific antigen [PSA] (principal); N40.1 Benign prostatic hyperplasia with lower urinary tract symptoms; N13.8 Other obstructive and reflux uropathy
CPT/HCPCS: 36415; 84153

== ENCOUNTER 2024-11-10 13:56 | Outpatient (CLI) | payer OTHER, MEDICARE, SELFPAY ==
[2024-11-10 15:24] LABS: HCT 41.7 % (40.0-50.0); HGB 13.6 g/dL (13.5-17.5); MCH 29.6 pg (27.0-33.0); MCHC 32.6 % (32.0-36.0); MCV 91 fL (80-95); MPV 10.9 fL (8.0-11.0); Platelet Count 161 10^3/uL (130-400); RBC 4.59 10^6/uL (4.36-5.78); RDW 12.6 % (11.8-14.1); RDW-SD 41.3 fL; WBC 5.71 10^3/uL (4.4-10.8)
[2024-11-10 15:42] LABS: Hemoglobin A1C 5.9 % (<5.7)
[2024-11-10 15:59] LABS: Anion Gap 5.7 mmol/L (3-11); BUN 17 mg/dL (7-18); CO2 31.3 mmol/L (21.0-32.0); CREATININE 1.2 mg/dL (0.70-1.30); Calcium 9.3 mg/dL (8.5-10.1); Calculated LDL 49 mg/dL (<100); Chloride 109 mmol/L (98-107); Cholesterol 116 mg/dL (<200); Estimated GFR 63.07 (mL/min/1.73m2); Glucose 96 mg/dL (74-106); HDL Cholesterol 41 mg/dL (>or=40); Potassium 4.4 mmol/L (3.5-5.1); Sodium 146 mmol/L (136-145); Triglyceride 131 mg/dL (<150)
== END 2024-11-10 13:57 | disposition home or self-care (01) ==
LOC: LBO 13:57
PROVIDERS: PCP Nurse Practitioner Family; Visit Provider Nurse Practitioner Family
DX: Z13.6 Encounter for screening for cardiovascular disorders (principal); D50.8 Other iron deficiency anemias; Z13.1 Encounter for screening for diabetes mellitus; E11.9 Type 2 diabetes mellitus without complications
CPT/HCPCS: 36415; 80048; 80061; 85027; 83036

== ENCOUNTER 2024-12-03 14:29 | Outpatient (CLI) | payer OTHER, MEDICARE, SELFPAY ==
[2024-12-04 09:43] LABS: PSA, Diagnostic 2.5 ng/mL (<=6.5)
== END 2024-12-03 14:30 | disposition home or self-care (01) ==
LOC: LBO 14:31
PROVIDERS: PCP Nurse Practitioner Family; Visit Provider Urology
DX: R97.20 Elevated prostate specific antigen [PSA] (principal)
CPT/HCPCS: 36415; 84153